=== PATIENT | male | born 1930 | race Caucasian/White ===

== ENCOUNTER 2017-06-01 16:20 | Inpatient (IN) | payer MEDICARE, OTHER ==
[~2017-06-01] VITALS: Ht 182.9 cm; Wt 64.0 kg
[~2017-06-01 16:20] MED LIST: AMLO5TAB4 PO; ASCO500C7 PO; DIGO125T73 GTB; DOCU-144 GTB; FLUO10TA; FURO40TA4 PO; INSU100C3 SQ; LEVE-5 PO; LISI-525 PO; METF500T3 GTB; METO-448 PO; METO10TA92 PO; MVI WITH MINERALS; PANT40TA3 PO; POTA20TA78 PO; SIMV10TA PO; TAMS-14 GTB; VIC PO
[2017-06-01 16:38] VITALS: Ht 182.9 cm; Wt 64.0 kg
[2017-06-01] MEDS ORDERED: ACETAMINOPHEN 650 MG SUPP PR STA (16:38)
[2017-06-01 16:56] LABS: BASOPHILS % 0.2 % (0.0-2.0); HEMATOCRIT 41.1 % (42.0-52.0); HEMOGLOBIN 12.6 g/dl (14.0-18.0); LYMPHOCYTES # 1.2 10^3/ul (0.8-2.9); LYMPHOCYTES % 11.1 % (15.0-51.0); MEAN CORPUSCULAR HEMOGLOBIN 30.7 pg (29.0-33.0); MEAN CORPUSCULAR HGB CONC 30.7 g/dl (32.0-37.0); MEAN PLATELET VOLUME 12.4 fl (7.4-10.4); MONOCYTE # 1.2 10^3/ul (0.3-0.9); MONOCYTES % 10.6 % (0.0-11.0); NEUTROPHIL # 8.7 10^3/ul (1.6-7.5); NEUTROPHILS % 77.7 % (39.0-77.0); PLATELET COUNT 198 10^3/UL (140-415); RED BLOOD COUNT 4.11 10^6/ul (4.70-6.10); WHITE BLOOD COUNT 11.1 10^3/ul (4.8-10.8)
[2017-06-01 17:12] LABS: INR 1.31; PROTIME 16.4 Sec (12.2-14.2); PT RATIO 1.3
[2017-06-01 17:13] LABS: PARTIAL THROMBOPLASTIN TIME 30.4 Sec (25.0-35.0)
[2017-06-01 17:14] LABS: ADD UMIC YES; UR ASCORBIC ACID 40 mg/dL (NEGATIVE); UR BILIRUBIN (Dip) NEGATIVE (NEGATIVE); UR BLOOD (Dip) NEGATIVE (NEGATIVE); UR CLARITY SLIGHTLY CLOUDY (CLEAR); UR COLOR AMBER (YELLOW); UR GLUCOSE (Dip) NEGATIVE (NEGATIVE); UR KETONES (Dip) NEGATIVE (NEGATIVE); UR LEUKOCYTE ESTERASE (Dip) NEGATIVE Leu/ul (NEGATIVE); UR MUCUS FEW /HPF (NONE SEEN); UR NITRITE (Dip) NEGATIVE (NEGATIVE); UR RBC 1 /HPF (0-5); UR SPECIFIC GRAVITY (Dip) 1.023 (1.003-1.030); UR TOTAL PROTEIN (Dip) 2+ mg/dl (NEGATIVE); UR UROBILINOGEN (Dip) 2+ mg/dL (NEGATIVE)
[2017-06-01 17:38] LABS: ALBUMIN/GLOBULIN RATIO 1.03; BILIRUBIN,INDIRECT 0.8 mg/dl (0-1.1); BILIRUBIN,TOTAL 0.8 mg/dl (0.2-1.3); CALCIUM 8.4 mg/dl (8.4-10.2); CREATININE 0.66 mg/dl (0.61-1.24); POTASSIUM 4.4 mmol/L (3.5-5.1); TOTAL PROTEIN 5.9 g/dl (6.1-8.1)
--- NOTE | 2017-06-01 17:40 | RADRPT ---
PROCEDURE: XR Chest. CLINICAL INDICATION: Shortness of breath. TECHNIQUE: Single frontal view. COMPARISON: 05/15/2009. FINDINGS: There is right basilar atelectasis or pneumonia. The lungs are otherwise clear. The heart is enlarged. There is calcification in the aorta consistent with atherosclerosis. There is no pleural effusion. There is no pneumothorax. IMPRESSION: 1. Right basilar atelectasis or pneumonia. 2. Cardiomegaly and atherosclerosis. RPTAT: QQ .Mynor Monson MD, Date Time Electronically viewed and signed by .Mynor Monson MD, on 06/01/2017 17:40 .R/
[2017-06-01 17:49] LABS: TROPONIN-I 0.067 ng/ml (0.00-0.12)
--- NOTE | 2017-06-01 18:04 | RADRPT ---
PROCEDURE: CT Brain without contrast. CLINICAL INDICATION: Altered mental status. TECHNIQUE: A CT of the brain without contrast was performed utilizing axial sections from the skul l base through the vertex. The patient was scanned without intravenous contrast enhancement. Sagitta l and coronal reformatted images were obtained using the data from the axial images. Total exam DLP is 810.25 mGy-cm. CTDIvol is 45.01 mGy. One or more of the following dose reduction techniques we re used: Automated exposure control, adjustment of the mA and/or kV according to patient size, use o f iterative reconstruction technique. COMPARISON: None available FINDINGS: There is a region of encephalomalacia in the right occipital lobe consistent with an old infarct. Th ere is also a region of encephalomalacia in the left frontal lobe consistent with an old infarct. An old infarct with associated encephalomalacia is present in the left parietal lobe anteriorly. There is no evidence of recent infarct. There is enlargement of the ventricles and subarachnoid spaces consistent with atrophy. There is decreased attenuation of the periventricular white matter consistent with microangiopathic ischemic change. There is no intracranial hemorrhage or space-occupying lesion. There are vascular calcifications consistent with atherosclerosis. There is no skull fracture or lytic lesion. IMPRESSION: 1. Atrophy. 2. Microangiopathic ischemic change. 3. Atherosclerosis. 4. 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 5. No evidence of recent infarct. 6. No intracranial hemorrhage. 7. Otherwise unremarkable noncontrast CT scan of the brain. RPTAT: QQ .Mynor Monson MD, MD Date Time Electronically viewed and signed by .Mynor Monson MD, on 06/01/2017 18:04 .R/
[2017-06-01] MEDS ORDERED: VANCOMYCIN 1 GM (PMX) 250 ML IVPB STA (18:17)
[2017-06-01] MEDS ORDERED: CEFEPIME 2GM/50 ML (PMX) 50 ML IVPB STA (18:17)
[2017-06-01] MEDS ORDERED: SODIUM CHLORIDE 0.9% 1L BAG IV* STA (18:17)
[2017-06-01] MEDS ORDERED: SOD CHLORIDE 0.9% 1,000 ML IV SCH (18:22)
--- NOTE | 2017-06-01 18:28 | ERA ---
ER Documentation Chief Complaint Date/Time DATE: 06/01/17 TIME: 18:25 Chief Complaint pt bib ambulance c/o high grade fever, more altered than normal HPI This is an 86-year-old male who presents to the emergency room after being brought in by ambulance from his nursing facility for evaluation of altered mental status. This patient was found to have a fever at his nursing facility. A detailed history is unobtainable from this patient secondary to his clinical condition and severe dementia. The patient is normally alert oriented to person only and was more altered than normal ROS All systems reviewed and are negative except as per history of present illness. Medications Home Meds Reported Medications Metoprolol Tartrate* (Lopressor*) 25 Mg Tab, 25 MG PO BID 01/16/12 Insulin Aspart (Novolog) 100 U/Ml Cartridge, 0 UNITS SQ 01/15/12 Potassium Chloride (Potassium Chloride) 20 Meq Tab.prt.sr, 20 MEQ PO DAILY 01/15/12 Furosemide (Lasix) 40 Mg Tab, 40 MG PO DAILY 01/15/12 Ascorbic Acid* (Vitamin C*) 500 Mg Capsule.sa, 500 MG PO DAILY 01/15/12 Acetaminophen/Hydrocodone (Vicodin) 1 Tab Tab, 1 TAB PO Q6 01/15/12 Tamsulosin Hcl* (Flomax*) 0.4 Mg Cap.sr.24h, 0.4 MG PO DAILY 01/15/12 Metformin* (Glucophage* XR) 500 Mg Tab.sr.24h, 500 MG PO BID 01/15/12 Simvastatin* (Zocor*) 10 Mg Tablet, 10 MG PO QHS 01/15/12 Metoclopramide* (Reglan*) 10 Mg Tablet, 10 MG PO Q6H 01/15/12 Lisinopril* (Zestril*) 20 Mg Tablet, 20 MG PO DAILY 01/15/12 Levetiracetam* (Keppra*) 500 Mg Tablet, 500 MG PO BID 01/15/12 Docusate Sodium* (Colace*) 100 Mg Capsule, 100 MG PO BID 01/15/12 Amlodipine Besylate* (Norvasc*) 5 Mg Tablet, 5 MG PO DAILY 01/15/12 Pantoprazole* (Protonix*) 40 Mg Tablet.dr, 40 MG PO DAILY 01/15/12 Digoxin (Digoxin) 125 Mcg Tablet, 125 MCG PO DAILY 01/15/12 Fluoxetine Hcl* (Prozac*) 10 Mg Tablet, DAILY 12/30/11 [Mvi With Minerals] No Conflict Check, QID 12/30/11 Allergies Allergies: Coded Allergies: No Known Allergy (Verified , NO DATA, 01/16/12) PMhx/Soc History of Surgery: Yes (Lap hernia repair sep 2011, IVC filter) Anesthesia Reaction: No Hx Neurological Disorder: Yes (Poss stroke) Hx Respiratory Disorders: No Hx Cardiac Disorders: Yes (Chronic A fib) Hx Psychiatric Problems: Yes (Depression) Hx Miscellaneous Medical Probl: No Hx Alcohol Use: No Hx Substance Use: No Hx Tobacco Use: No Smoking Status: Unknown if ever smoked Physical Exam Vitals Vital Signs Date Time Temp Pulse Resp B/P Pulse Ox O2 Delivery O2 Flow Rate FiO2 06/01/17 18:14 88 24 103/50 99 Nasal Cannula 3.0 06/01/17 17:04 Nasal Cannula 4 06/01/17 16:38 103.0 85 27 98/47 98 Physical Exam INITIAL VITAL SIGNS: Reviewed by me GENERAL: The patient is ill-appearing elderly gentleman, warm to touch HEENT: Mucous membranes, pupils equal, round, and reactive to light. EOMI. There is no scleral icterus. NECK: C-spine is soft and supple, there is no meningismus. There is no cervical lymphadenopathy. LUNGS: Breath sounds bilaterally with rhonchi auscultated HEART: Regular rate and rhythm, no murmurs, clicks, rubs or gallops. ABDOMEN: Soft, non-tender, non-distended. There are bowel sounds in all four quadrants. No rebound or guarding. EXTREMITIES: There is no peripheral cyanosis or edema. No focal swelling or erythema. NEUROLOGICAL: The patient moves all four extremities with 5/5 strength. SKIN: There is no apparent rash or petechiae. HEME/LYMPHATIC: There is no evidence of excessive bruising or lymphedema. PSYCHIATRIC: The patient does not appear anxious or depressed. Result Diagram: 06/01/17 1645 06/01/17 1645 Results 24 hrs Laboratory Tests Test 06/01/17 16:45 06/01/17 16:57 White Blood Count 11.110^3/ul Red Blood Count 4.1110^6/ul Hemoglobin 12.6g/dl Hematocrit 41.1% Mean Corpuscular Volume 100.0fl Mean Corpuscular Hemoglobin 30.7pg Mean Corpuscular Hemoglobin Concent 30.7g/dl Red Cell Distribution Width 16.0% Platelet Count 50221^3/UL Mean Platelet Volume 12.4fl Neutrophils % 77.7% Lymphocytes % 11.1% Monocytes % 10.6% Eosinophils % 0.0% Basophils % 0.2% Nucleated Red Blood Cells % 0.0/100WBC Neutrophils # 8.710^3/ul Lymphocytes # 1.210^3/ul Monocytes # 1.210^3/ul Eosinophils # 0.010^3/ul Basophils # 0.010^3/ul Nucleated Red Blood Cells # 0.010^3/ul Prothrombin Time 16.4Sec Prothrombin Time Ratio 1.3 INR International Normalized Ratio 1.31 Activated Partial Thromboplast Time 30.4Sec Sodium Level 152mmol/L Potassium Level 4.4mmol/L Chloride Level 108mmol/L Carbon Dioxide Level 43mmol/L Anion Gap 5 Blood Urea Nitrogen 47mg/dl Creatinine 0.66mg/dl Glucose Level 162mg/dl Lactic Acid Level 2.1mmol/L Calcium Level 8.4mg/dl Total Bilirubin 0.8mg/dl Direct Bilirubin 0.00mg/dl Indirect Bilirubin 0.8mg/dl Aspartate Amino Transf (AST/SGOT) 297IU/L Alanine Aminotransferase (ALT/SGPT) 190IU/L Alkaline Phosphatase 44IU/L Troponin I 0.067ng/ml Total Protein 5.9g/dl Albumin 3.0g/dl Globulin 2.90g/dl Albumin/Globulin Ratio 1.03 Urine Color ADRIANA Urine Clarity SLIGHTLY CLOUDY Urine pH 5.0 Urine Specific Jackson 1.023 Urine Ketones NEGATIVEmg/dL Urine Nitrite NEGATIVEmg/dL Urine Bilirubin NEGATIVEmg/dL Urine Urobilinogen 2+mg/dL Urine Leukocyte Esterase NEGATIVELeu/ul Urine Microscopic RBC 1/HPF Urine Microscopic WBC 2/HPF Urine Mucus FEW/HPF Urine Hemoglobin NEGATIVEmg/dL Urine Glucose NEGATIVEmg/dL Urine Total Protein 2+mg/dl Current Medications Medications (Trade) Dose Ordered Sig/Jesi Route PRN Reason Start Time Stop Time Status Last Admin Dose Admin Acetaminophen (Tylenol Supp) 650 mg ONCE STAT CA 06/01/17 16:38 06/01/17 16:39 DC 06/01/17 17:04 Sodium Chloride 2330 ml 2,330 ml BOLUS OVER 2 HOURS STAT IV* 06/01/17 18:17 06/01/17 18:20 DC 06/01/17 18:20 Vancomycin HCl 250 ml @ 125 mls/hr ONCE STAT IVPB 06/01/17 18:17 06/01/17 20:16 Cefepime HCl 50 ml @ 100 mls/hr ONCE STAT IVPB 06/01/17 18:17 06/01/17 18:46 06/01/17 18:24 Sodium Chloride (NS) 1,000 ml @ 80 mls/hr [id number] IV 06/01/17 18:22 06/02/17 06:51 Ondansetron HCl (Zofran Inj) 4 mg BRIDGE ORDER PRN IV NAUSEA AND/OR VOMITING 06/01/17 18:30 06/02/17 18:29 Acetaminophen (Tylenol Tab) 650 mg ER BRIDGE PRN PO MILD PAIN/FEVER 06/01/17 18:30 06/02/17 18:29 Procedures/MDM EKG: Rate/Rhythm: [Normal Sinus Rhythm] QRS, ST, T-waves: [No changes consistent w/ acute ischemia] Impression: [No evidence of ischemia or arrhythmia] Chest X-ray 1V Interpreted by me: Soft Tissue: No acute abnormalities Bones: No acute abnormalities Mediastinum/Cardiac Silhouette/Lungs: Right lobe pneumonia This is an 86-year-old male presents to the emergency room for evaluation of altered mental status and fever. This patient was found to be febrile in the emergency room. He did have septic workup which it was revealed a right lobe pneumonia. He was febrile and does meet sepsis criteria. The patient was given 30 cc/kg of IV normal saline. He was started on vancomycin and cefepime after blood and urine cultures were obtained and will be placed in for admission at this time [facility] as he is hemodynamically stable. His mean arterial pressures given 65 with no need for vasopressors at this time. Critical Care: Excluding all billable procedures Time: 38 minutes Treatments/Evaluations: Close monitoring and treatment of unstable vital signs, cardiorespiratory, and neurologic status, while maintaining tight balance of fluid, respiratory, and cardiac interventions. Departure Diagnosis: Primary Impression: Sepsis Additional Impression: Right lower lobe pneumonia Condition: Stable ANA MARION DO Jun 01, 2017 18:27
[2017-06-01] MEDS ORDERED: ONDANSETRON 4 MG INJ IV PRN ×2 (18:30→20:00)
[2017-06-01] MEDS ORDERED: ACETAMINOPHEN 325 MG TAB PO PRN (18:30)
[2017-06-01 19:09] VITALS: TEMP 98.9
[2017-06-01] MEDS ORDERED: NACL 0.9% 3 ML SYG IV SCH (20:00)
[2017-06-01] MEDS ORDERED: morphine 2 MG INJ IV PRN (20:00)
[2017-06-01] MEDS: SOD CHLORIDE 0.9% 1,000 ML IV SCH (21:35)
[2017-06-01] MEDS: FAMOTIDINE 20 MG INJ IV SCH (21:35)
[2017-06-01] MEDS ORDERED: PENDING SANTYL ORDER FOR WOUND CARE XX PRN (23:00)
[2017-06-02] VITALS (8 sets, daily range): BP systolic 104–139; BP diastolic 50–66; PULSE 81–94; RESP 18–20
[2017-06-02] MEDS ORDERED: INSULIN ASPART [NOVOLOG] 3 ML PEN SC SCH
[2017-06-02] MEDS ORDERED: GLUCAGON 1 MG INJ IM PRN (00:30)
[2017-06-02] MEDS ORDERED: GLUCOSE GEL 15 GRAM TUBE BUCCAL PRN (00:30)
[2017-06-02] MEDS ORDERED: GLUCOSE GEL 15 GRAM TUBE PO PRN ×2 (00:30)
[2017-06-02] MEDS ORDERED: DEXTROSE 50% 50 ML SYRINGE IV PRN ×2 (00:30)
[2017-06-02] MEDS ORDERED: LOSA50TA6 GTB (02:36)
[2017-06-02] MEDS ORDERED: MAGN400T28 GTB (02:36)
[2017-06-02] MEDS ORDERED: CARV6.25 GTB (02:36)
[2017-06-02] MEDS ORDERED: PANT40TA4 GTB (02:36)
[2017-06-02] MEDS ORDERED: ASPI-664 GTB (02:36)
[2017-06-02] MEDS ORDERED: ATOR10TA65 GTB (02:36)
[2017-06-02] MEDS ORDERED: LORA1TAB GTB (02:36)
[2017-06-02] MEDS ORDERED: ACET-514 GTB (02:36)
[2017-06-02] MEDS: SOD CHLORIDE 0.9% 1,000 ML IV SCH ×2 (05:35→10:20)
[2017-06-02 06:25] LABS: BASOPHILS % 0.2 % (0.0-2.0); HEMATOCRIT 39.6 % (42.0-52.0); HEMOGLOBIN 11.6 g/dl (14.0-18.0); LYMPHOCYTES # 1.5 10^3/ul (0.8-2.9); LYMPHOCYTES % 15.8 % (15.0-51.0); MEAN CORPUSCULAR HEMOGLOBIN 29.6 pg (29.0-33.0); MEAN CORPUSCULAR HGB CONC 29.3 g/dl (32.0-37.0); MEAN PLATELET VOLUME 12.5 fl (7.4-10.4); MONOCYTE # 1.1 10^3/ul (0.3-0.9); MONOCYTES % 11.9 % (0.0-11.0); NEUTROPHIL # 6.5 10^3/ul (1.6-7.5); NEUTROPHILS % 71.3 % (39.0-77.0); PLATELET COUNT 178 10^3/UL (140-415); RED BLOOD COUNT 3.92 10^6/ul (4.70-6.10); RED CELL DISTRIBUTION WIDTH 16.1 % (11.5-14.5); WHITE BLOOD COUNT 9.2 10^3/ul (4.8-10.8)
[2017-06-02] MEDS ORDERED: COLLAGENASE 30 GM TUBE TOP PRN (06:30)
[2017-06-02] MEDS: INSULIN ASPART [NOVOLOG] 3 ML PEN SC SCH ×3 (06:36→17:41)
[2017-06-02 07:19] LABS: ALBUMIN 2.6 g/dl (3.3-4.9); ALBUMIN/GLOBULIN RATIO 0.81; BILIRUBIN,INDIRECT 0.8 mg/dl (0-1.1); BILIRUBIN,TOTAL 0.8 mg/dl (0.2-1.3); CALCIUM 8.3 mg/dl (8.4-10.2); CREATININE 0.58 mg/dl (0.61-1.24); POTASSIUM 4.1 mmol/L (3.5-5.1); TOTAL PROTEIN 5.8 g/dl (6.1-8.1)
[2017-06-02] MEDS ORDERED: CEFEPIME 1GM/50 ML (PMX) 50 ML IVPB SCH (09:00)
[2017-06-02] MEDS: COLLAGENASE 30 GM TUBE TOP SCH (09:55)
[2017-06-02] MEDS: FAMOTIDINE 20 MG INJ IV SCH ×2 (09:58→21:29)
[2017-06-02] MEDS: ENOXAPARIN 30 MG/0.3 ML SYG SC SCH (10:00)
[2017-06-02] MEDS ORDERED: VANCOMYCIN IV PER PHARMACY XX SCH (16:00)
[2017-06-02] MEDS ORDERED: LEVALBUTEROL (NEB) 0.63 MG/3 ML AMP HHN PRN (16:00)
--- NOTE | 2017-06-02 16:50 | HP ---
DATE OF ADMISSION: 06/01/2017 CHIEF COMPLAINT: Fever, altered mental status. HISTORY OF PRESENT ILLNESS: The patient is an 86-year-old, white male, who is a resident of snf facility. Patient with history of stroke, atherosclerosis, chronic atrial fibrillation, depression, history of IVC filter, diabetes, and hypertension. Patient is noted to have more than usual altered mental status and also had fevers and was sent by ambulance from [facility] to emergency room of [facility]. Patient cannot provide any medical history due to altered mental status. Most of the history was obtained from medical records and talking to nursing staff. Patient underwent chest x-ray in the emergency room and was diagnosed with right lower lobe pneumonia. Patient also noted to have leukocytosis and elevated lactate on admission. Patient was given IV fluids and started on broad-spectrum antibiotics and admitted for further evaluation and management to telemetry floor. PAST MEDICAL HISTORY: Per HPI. History of pulmonary emboli, diabetes, history of gastrointestinal bleed in 2009, BPH, dyslipidemia, systolic dysfunction heart failure. PAST SURGICAL HISTORY: Status post laparoscopic hernia repair in 2011, status post IVC filter placement, status post cataract surgery bilaterally. FAMILY HISTORY: Noncontributory. SOCIAL HISTORY: Patient is a resident of a snf facility. Patient has a prior history of cigarette smoking, quit in 1998. Used to smoke a couple of cigarettes per day. No history of alcohol or illicit drug use. Patient currently is a [facility] resident. ALLERGIES: NO KNOWN ALLERGIES. MEDICATIONS ON ADMISSION: 1. Lopressor. 2. NovoLog. 3. Potassium chloride. 4. Lasix. 5. Vitamin C. 6. Vicodin. 7. Flomax. 8. Metformin. 9. Simvastatin. 10. Reglan. 11. Lisinopril. 12. Keppra. 13. Colace. 14. Norvasc. 15. Protonix. 16. Digoxin. 17. Prozac. 18. Multivitamins. REVIEW OF SYSTEMS: A 12-point review of system is negative, unless mentioned. PHYSICAL EXAMINATION: GENERAL: Well-developed cachectic male, currently is obtunded. VITAL SIGNS: Temperature is 98.9, pulse is 93, blood pressure 129/59, respiratory rate 18, oxygen saturation 96 percent on 2 L nasal cannula. HEENT: Head is normocephalic, atraumatic. Pale conjunctiva. Oral mucosa is pink, moist. NECK: Supple. LUNGS: Lung sounds diminished bilaterally. CARDIAC: Irregular irregular rate. ABDOMEN: Flat, nondistended, nontender. SKIN: No apparent rash noted. NEUROLOGICAL: Patient is obtunded. LABORATORY DATA: On admission, CBC: White blood cells 9.2, hemoglobin 11.6, hematocrit 39.6, platelets 178. Chemistry: Sodium is 151, potassium 4.1, chloride 111, carbon dioxide 29, anion gap 5, BUN is 43, creatinine 0.58. Glucose 133. AST 236, ALT 178, alkaline phosphate is 40. ASSESSMENT AND PLAN: 1. Right lower lobe pneumonia, sn[facility] facility- acquired pneumonia. We will continue vancomycin and cefepime. I asked Dr. Liu to see patient in Infectious Disease consultation. Monitor chest x-ray. 2. Sepsis secondary to pneumonia. Will obtain blood cultures. 3. Altered mental status. Patient underwent CT brain without contrast, with no evidence of recent infarct. Patient with multiple old infarcts in the right occipital lobe, left frontal lobe and left parietal lobe. We will obtain MRI of the brain. Continue Keppra. 4. Hypertension. Patient is currently normotensive. Continue to monitor vital signs on telemetry floor. 5. Continue Lovenox for deep venous thrombosis prophylaxis. 6. Further recommendation based on clinical course. 7. Plan of care discussed with Dr. Chavarria. Dictated By: Kenia Sotelo NP /krystal/sinai /Document#: [id number] DYLON
[2017-06-02] MEDS: ACETAMINOPHEN 325 MG TAB PO PRN (17:54)
[2017-06-02] MEDS: DEXTROSE 5% 1,000 ML IV SCH (17:55)
[2017-06-02] MEDS: VANCOMYCIN 750 MG in SOD CHLORIDE 0.9% 150 ML IVPB SCH (18:19)
[2017-06-02] MEDS: CEFEPIME 1GM/50 ML (PMX) 50 ML IVPB SCH (21:00)
[2017-06-03] VITALS (64 sets, daily range): BP systolic 49–130; BP diastolic 30–64; PULSE 58–106; RESP 12–28
[2017-06-03] MEDS: LEVALBUTEROL (NEB) 0.63 MG/3 ML AMP HHN SCH ×2 (02:41→08:11)
[2017-06-03] MEDS: VANCOMYCIN 750 MG in SOD CHLORIDE 0.9% 150 ML IVPB SCH ×2 (05:37→18:05)
[2017-06-03] MEDS: DEXTROSE 5% 1,000 ML IV SCH ×2 (05:38→14:04)
--- NOTE | 2017-06-03 05:42 | CONS ---
DATE OF ADMISSION: 06/01/2017 DATE OF CONSULTATION: 06/01/2017 REASON FOR CONSULTATION: Antibiotic management. HISTORY OF PRESENT ILLNESS: Livan Sanders is an 86-year-old male, who was admitted with high-grade fever and altered mental status. His past problems include. 1. Senile dementia. 2. Hypertension. 3. Adult-onset diabetes mellitus. 4. Hyperlipidemia. 5. Possible seizure disorders. 6. Status post laparoscopic hernia repair in September 2011. 7. IVC filter. 8. Possible stroke. 9. Chronic atrial fibrillation. 10. Depression. On admission, his temperature was 103 degrees. His white count was 11.1, hemoglobin and hematocrit of 12.6 and 41.1, platelet count 188,000. BUN and creatinine 47/0.66. Random glucose 162. His CO2 was 43 and his sodium was 152. Patient was started on vancomycin and cefepime. Urine cultures so far are negative. Chest x-ray shows right basilar atelectasis or pneumonia, cardiomegaly and atherosclerosis. He was started on as noted vancomycin and cefepime for the possibility of sepsis. PAST MEDICAL HISTORY: Operations as outlined. FAMILY HISTORY: Noncontributory. SOCIAL HISTORY: He does not smoke, drink, or abuse drugs. ALLERGIES: NONE TO PENICILLIN, SULFA, OR FOODS. MEDICATION: Per chart. REVIEW OF SYSTEMS: As per HPI. PHYSICAL EXAMINATION: GENERAL: Patient is a chronically ill-appearing male, who is awake, responsive, confused, in no acute distress. VITAL SIGNS: Stable. He is afebrile. SKIN: Without generalized rash. HEENT: Within normal limits. NECK: Supple. Lymph nodes nonpalpable. CHEST: Decreased breath sounds at the bases. HEART: Without murmur or gallop. ABDOMEN: Soft, nontender, without organo-splenomegaly or masses. EXTREMITIES: Without cyanosis, clubbing, or edema. RECTAL/GENITAL: Deferred. NEUROLOGICAL: No focal neurological abnormality. IMPRESSION AND PLAN: Patient presents now with sepsis with a temperature of 103 degrees. We are going to continue him on this current regimen. I will dictate my findings to the hospitalists. Dictated By: Linden Liu MD JD/krystal/elías /Document#: [id number]
[2017-06-03] MEDS: INSULIN ASPART [NOVOLOG] 3 ML PEN SC SCH ×4 (05:47→18:03)
[2017-06-03] MEDS: FAMOTIDINE 20 MG INJ IV SCH ×2 (08:19→21:06)
[2017-06-03] MEDS: CEFEPIME 1GM/50 ML (PMX) 50 ML IVPB SCH ×2 (08:19→21:06)
[2017-06-03] MEDS: ENOXAPARIN 30 MG/0.3 ML SYG SC SCH (08:20)
[2017-06-03] MEDS: COLLAGENASE 30 GM TUBE TOP SCH (09:00)
[2017-06-03 09:26] LABS: ABNORMAL IP MESSAGE 1; BASOPHILS % 0.2 % (0.0-2.0); HEMATOCRIT 40.8 % (42.0-52.0); HEMOGLOBIN 11.7 g/dl (14.0-18.0); LYMPHOCYTES # 1.5 10^3/ul (0.8-2.9); LYMPHOCYTES % 13.9 % (15.0-51.0); MEAN CORPUSCULAR HEMOGLOBIN 30.2 pg (29.0-33.0); MEAN CORPUSCULAR HGB CONC 28.7 g/dl (32.0-37.0); MEAN CORPUSCULAR VOLUME 105.2 fl (82.0-101.0); MEAN PLATELET VOLUME 12.5 fl (7.4-10.4); MONOCYTE # 1.4 10^3/ul (0.3-0.9); MONOCYTES % 13.1 % (0.0-11.0); NEUTROPHIL # 7.8 10^3/ul (1.6-7.5); NEUTROPHILS % 72.1 % (39.0-77.0); PLATELET COUNT 236 10^3/UL (140-415); POSITIVE DIFF @See below; RED BLOOD COUNT 3.88 10^6/ul (4.70-6.10); RED CELL DISTRIBUTION WIDTH 15.8 % (11.5-14.5); WHITE BLOOD COUNT 10.8 10^3/ul (4.8-10.8)
[2017-06-03 09:51] LABS: CALCIUM 8.4 mg/dl (8.4-10.2); CREATININE 0.54 mg/dl (0.61-1.24); POTASSIUM 4.7 mmol/L (3.5-5.1)
[2017-06-03 10:13] LABS: THYROID STIMULATING HORMONE 3.8 MIU/L (0.465-4.680)
[2017-06-03 10:34] LABS: AADO2 Arterial 463.8 mmHg (7.0-24.0); Allen Test ACCEPTAB; Arterial Base Excess 8.8 mmol/L (-3.0-3); Arterial Fraction of Oxyhgb 97.9 % (93.0-99.0); Arterial HCO3 40.5 mmol/L (22.0-26.0); Arterial MetHb 0 % (0.0-1.5); MODE MASK - NRB
--- NOTE | 2017-06-03 10:57 | EN ---
Date/Time of Note Date/Time of Note DATE: 06/03/17 TIME: 10:55 Event Note Medicine Medicine Event Note Oral intubation. I responded to rapid response on the 5th [facility], patient was completely unresponsive, was having shallow breathing. Stat ABG was done which is showing severe acute hypercapnic respiratory failure. Patient was transferred to ICU immediately. Patient was orally intubated with 7.5 endotracheal tube without difficulty. Vocal cords were visualized and the tube traversed through. No sedation was required as the patient was completely unresponsive. Chest X-ray and ABG have been ordered. Time :10:45 AM. DONIS GARLAND Jun 03, 2017 10:57
[2017-06-03] MEDS ORDERED: NORepinephrine 8MG/250 ML (PMX 250 ML ONE (11:02)
--- NOTE | 2017-06-03 11:07 | CONS ---
Date/Time of Note Date/Time of Note DATE: 06/03/17 TIME: 10:59 Assessment/Plan Assessment/Plan Additional Assessment/Plan Chest x-ray was reviewed from. This month which is showing mild cardiomegaly, with right lower lobe infiltrate. There is unfolding of the aortic arch. Assessment and recommendations; 1. Patient admitted with dehydration as well as hypernatremia. 2. Acute Respiratory failure. 3. Multiple other comorbidities including advanced dementia, chronic atrial fibrillation, CVA, history of DVT and possibly PE, diabetes and hypertension. 4. Severe aspiration pneumonia. Continue current treatment. Will obtain a post intubation ABG and chest x-ray. Add free water via G-tube for correction of intravascular volume depletion and hypernatremia. Address CODE STATUS with the family. Consultation Date/Type/Reason Admit Date/Time Jun 01, 2017 at 20:45 Date of Consultation: Jun 03, 2017 Type of Consultation: Pulmonary/critical care Hx of Present Illness Pulmonary consultation requested for evaluation of respiratory failure. History of presenting illness; It is an 86-year-old white male who was transferred from halfway facility on the first of this month due to increasing altered mental status. Upon evaluation patient was diagnosed with hyponatremia and prerenal azotemia with dehydration. Patient has been adequately fluid resuscitated. However short while ago a rapid response was called in overhead due to patient having shallow respirations and increasing hypoxemia and lethargic. Was immediately attended to at bedside. Patient appeared quite lethargic and was having very shallow respirations. Statin ABG was done which is showing acute severe hypercapnic respiratory failure with respiratory acidosis. Patient was immediately transferred to ICU where he was orally intubated by myself at bedside without difficulty. History has been obtained from medical records. Past medical history; 1. Patient with history of advanced dementia. 2. Chronic dysphagia, status post G-tube placement. 3. Chronic atrial fibrillation. 4. 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 5. History of CVA. 6. Hypertension. 7. Diabetes. 8. History of laparoscopic herniorrhaphy. 9. History of bilateral intraocular lens implant placement. Medications; reviewed. Allergies; none. Social history, family history, occupational histories not available. Review systems; unable to be obtained. General exam; elderly male, appears quite emaciated, unresponsive. Now orally intubated. Social History Smoking Status: Unknown if ever smoked Exam/Review of Systems Vital Signs Vitals Vital Signs Date Time Temp Pulse Resp B/P Pulse Ox O2 Delivery O2 Flow Rate FiO2 06/03/17 08:13 88 20 97 Nasal Cannula 2.0 06/03/17 08:13 99.9 124/59 Intake and Output 06/02/17 06/02/17 06/03/17 15:00 23:00 07:00 Intake Total 1100 ml Output Total 200 ml 550 ml Balance -200 ml 550 ml Exam HEENT exam; supple neck, no JVD. No lymphadenopathy. Midline trachea. No thyromegaly. Oral mucosa is dry. Patient is edentulous. Has bilateral intraocular lens implants. There is a skin graft applied over the right temporal area. There is significant bilateral temporal muscle wasting. No neck masses. No lymphadenopathy. Chest exam; diminished breath sounds bilaterally. S1-S2 audible, irregular rhythm. Abdomen exam; soft, scaphoid. Bowel sounds are absent. G-tube in place. No organomegaly. Extremity exam; no peripheral edema. Pulses 1+ bilaterally. Multiple ecchymosis involving all 4 extremities. RIG HAND exam; patient is completely unresponsive. Results Result Diagram: 06/03/17 0838 06/03/1738 Results 24 hrs Laboratory Tests Test 06/02/17 11:55 06/02/17 17:40 06/03/17 00:12 06/03/17 05:42 Bedside Glucose 152 126 210 178 Test 06/03/17 08:38 06/03/17 10:05 06/03/17 10:10 White Blood Count 10.8 Red Blood Count 3.88 L Hemoglobin 11.7 L Hematocrit 40.8 L Mean Corpuscular Volume 105.2 H Mean Corpuscular Hemoglobin 30.2 Mean Corpuscular Hemoglobin Concent 28.7 L Red Cell Distribution Width 15.8 H Platelet Count 236 # Mean Platelet Volume 12.5 H Neutrophils % 72.1 Lymphocytes % 13.9 L Monocytes % 13.1 H Eosinophils % 0.0 Basophils % 0.2 Nucleated Red Blood Cells % 0.0 Neutrophils # 7.8 H Lymphocytes # 1.5 Monocytes # 1.4 H Eosinophils # 0.0 Basophils # 0.0 Nucleated Red Blood Cells # 0.0 Sodium Level 150 H Potassium Level 4.7 Chloride Level 111 H Carbon Dioxide Level 38 H Anion Gap 6 L Blood Urea Nitrogen 45 H Creatinine 0.54 L Glucose Level 131 Calcium Level 8.4 Thyroid Stimulating Hormone (TSH) 3.800 Bedside Glucose 134 Blood Gas Specimen Source Blood arterial Arterial Blood Date Drawn 06/03/2017 10:18:00 AM Arterial Blood pH (Temp corrected) 7.213 *L Arterial Blood pCO2 (Temp correct) 102.8 *H Arterial Blood pO2 (Temp corrected) 146.4 H Arterial Blood HCO3 40.5 *H Arterial Blood Base Excess 8.8 H Arterial Blood Oxygen Saturation 98.9 Sukumar Test ACCEPTAB Arterial Blood Gas Puncture Site Right Radial Arterial Blood Carboxyhemoglobin 1.0 Arterial Blood Methemoglobin 0 Blood Gas A-a O2 Differential 463.8 H Oxyhemoglobin Percent 97.9 Total Hemoglobin 13.0 Blood Gas Temperature 37.0 Blood Gas Modality MASK - NRB FiO2 100.0 Blood Gas Critical Value Read Back RAFAEL Connolly Blood Gas Notified Whom [place] Blood Gas Notified Time 06/03/2017 10:31:00 AM Medications Medications Current Medications Ondansetron HCl (Zofran Inj) 4 mg Q6H PRN IV NAUSEA AND/OR VOMITING; Start 06/01/17 at 20:00 Acetaminophen (Tylenol Tab) 650 mg Q6H PRN PO PAIN LEVEL 1-3 OR FEVER Last administered on 06/02/17 17:54; Admin Dose 650 MG; Start 06/01/17 at 20:00 Morphine Sulfate (morphine) 2 mg Q4H PRN IV SEVERE PAIN LEVEL 7-10; Start 06/01 at 20:00 Famotidine (Pepcid Iv) 20 mg Q12 IV Last administered on 06/03/17 08:19; Admin Dose 20 MG; Start 06/01/17 at 21:00 Enoxaparin Sodium (Lovenox) 30 mg DAILY SC Last administered on 06/03/17 08:20 ; Admin Dose 30 MG; Start 06/02/17 at 09:00 Miscellaneous Information (Pending Santyl Order For Wound Care) This patient moilna... PRN PRN XX WOUND CARE; Start 06/01/17 at 23:00 Miscellaneous Information 1 ea NOTE XX ; Start 06/02/17 at 00:30 Glucose (Glutose) 15 gm Q15M PRN PO DECREASED GLUCOSE; Start 06/02/17 at 00:30 Glucose (Glutose) 22.5 gm Q15M PRN PO DECREASED GLUCOSE; Start 06/02/17 at 00: 30 Dextrose (D50w Syringe) 25 ml Q15M PRN IV DECREASED GLUCOSE; Start 06/02/17 at 00:30 Dextrose (D50w Syringe) 50 ml Q15M PRN IV DECREASED GLUCOSE; Start 06/02/17 at 00:30 Glucagon (Glucagen) 1 mg Q15M PRN IM DECREASED GLUCOSE; Start 06/02/17 at 00:30 Glucose (Glutose) 15 gm Q15M PRN BUCCAL DECREASED GLUCOSE; Start 06/02/17 at 00 :30 Insulin Aspart (Novolog Insulin Pen) NOVOLOG *MODERATE* ALGORI... Q6 SC Last administered on 06/03/17 05:47; Admin Dose 2 UNIT; Start 06/02/17 at 06:00 Collagenase (Santyl) 1 applic DAILY TOP Last administered on 06/02/17 09:55; Admin Dose 1 APPLIC; Start 06/02/17 at 09:00 Collagenase 1 applic 1 applic PRN PRN TOP PRN; Start 06/02/17 at 06:30 Cefepime HCl 50 ml @ 100 mls/hr Q12 IVPB Last administered on 06/03/17 08:19 ; Admin Dose 100 MLS/HR; Start 06/02/17 at 21:00 Dextrose 1,000 ml @ 75 mls/hr [id number] IV Last administered on 06/03/17 05:38 ; Admin Dose 75 MLS/HR; Start 06/02/17 at 16:00 Vancomycin HCl/ Sodium Chloride (Vancocin/NS) 150 ml @ 75 mls/hr Q12H IVPB Last administered on 06/03/17 05:37; Admin Dose 75 MLS/HR; Start 06/02/17 at 17 :00 DONIS GARLAND Jun 03, 2017 11:06
--- NOTE | 2017-06-03 11:28 | PN ---
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 The patient is hypotensive. Continue IV fluids, start Levophed drip for BP support. PICC line ordered. Problems: Assessment/Plan -Respiratory failure requiring intubation and ventilatory support. Dr. Huston is following in pulmonology consultation. -Septic shock, continue IV fluids, start Levophed drip for hemodynamic support , patient needs central line for IV fluids pressors and antibiotics. No family available. Per nursing staff patient was making decisions for himself at senior living facility. Please insert PICC line urgently. - Right lower lobe pneumonia, senior living facility-acquired pneumonia. Continue vancomycin and cefepime. Dr. Liu is following in Infectious Disease consultation. -Acute metabolic encephalopathy -Rule out acute stroke and patient is with history of stroke with hemiparesis, CT scan negative for acute stroke, MRI ordered yesterday still pending. Continue Keppra. -Diastolic dysfunction congestive heart failure. Dr. Morales is asked to see patient in cardiology consultation -Atrial fibrillation -Dysphagia with PEG -Sacral decubitus ulcer present on admission -Full Code, POLST in the chart indicating patient wants full treatment Further recommendation based on clinical course. Plan of care discussed with Dr. Chavarria. Exam/Review of Systems Vital Signs Vitals Vital Signs Date Time Temp Pulse Resp B/P Pulse Ox O2 Delivery O2 Flow Rate FiO2 06/03/17 11:00 76 06/03/17 10:55 20 99 100 06/03/17 08:13 Nasal Cannula 2.0 06/03/17 08:13 99.9 124/59 Intake and Output 06/02/17 06/02/17 06/03/17 15:00 23:00 07:00 Intake Total 1100 ml Output Total 200 ml 550 ml Balance -200 ml 550 ml Exam Constitutional: non-verbal, other (Orally intubated) Head: normocephalic Neck: supple Respiratory: diminished breath sounds Cardiovascular: irregular rhythm Gastrointestinal: other (G-tube), soft Musculoskeletal: nl extremities to inspection Extremities: other (Pulses) Neurological: other (Obtunded) Results Result Diagram: 06/03/17 0838 06/03/17 0838 Results 24 hrs Laboratory Tests Test 06/02/17 11:55 06/02/17 17:40 06/03/17 00:12 06/03/17 05:42 Bedside Glucose 152 126 210 178 Test 06/03/17 08:38 06/03/17 10:05 06/03/17 10:10 White Blood Count 10.8 Red Blood Count 3.88 L Hemoglobin 11.7 L Hematocrit 40.8 L Mean Corpuscular Volume 105.2 H Mean Corpuscular Hemoglobin 30.2 Mean Corpuscular Hemoglobin Concent 28.7 L Red Cell Distribution Width 15.8 H Platelet Count 236 # Mean Platelet Volume 12.5 H Neutrophils % 72.1 Lymphocytes % 13.9 L Monocytes % 13.1 H Eosinophils % 0.0 Basophils % 0.2 Nucleated Red Blood Cells % 0.0 Neutrophils # 7.8 H Lymphocytes # 1.5 Monocytes # 1.4 H Eosinophils # 0.0 Basophils # 0.0 Nucleated Red Blood Cells # 0.0 Sodium Level 150 H Potassium Level 4.7 Chloride Level 111 H Carbon Dioxide Level 38 H Anion Gap 6 L Blood Urea Nitrogen 45 H Creatinine 0.54 L Glucose Level 131 Calcium Level 8.4 Thyroid Stimulating Hormone (TSH) 3.800 Bedside Glucose 134 Blood Gas Specimen Source Blood arterial Arterial Blood Date Drawn 06/03/2017 10:18:00 AM Arterial Blood pH (Temp corrected) 7.213 *L Arterial Blood pCO2 (Temp correct) 102.8 *H Arterial Blood pO2 (Temp corrected) 146.4 H Arterial Blood HCO3 40.5 *H Arterial Blood Base Excess 8.8 H Arterial Blood Oxygen Saturation 98.9 Sukumar Test ACCEPTAB Arterial Blood Gas Puncture Site Right Radial Arterial Blood Carboxyhemoglobin 1.0 Arterial Blood Methemoglobin 0 Blood Gas A-a O2 Differential 463.8 H Oxyhemoglobin Percent 97.9 Total Hemoglobin 13.0 Blood Gas Temperature 37.0 Blood Gas Modality MASK - NRB FiO2 100.0 Blood Gas Critical Value Read Back RAFAEL Connolly Blood Gas Notified Whom Sterling Blood Gas Notified Time 06/03/2017 10:31:00 AM Medications Medications Current Medications Ondansetron HCl (Zofran Inj) 4 mg Q6H PRN IV NAUSEA AND/OR VOMITING; Start 06/01/17 at 20:00 Acetaminophen (Tylenol Tab) 650 mg Q6H PRN PO PAIN LEVEL 1-3 OR FEVER Last administered on 06/02/17 17:54; Admin Dose 650 MG; Start 06/01/17 at 20:00 Morphine Sulfate (morphine) 2 mg Q4H PRN IV SEVERE PAIN LEVEL 7-10; Start 06/01 at 20:00 Famotidine (Pepcid Iv) 20 mg Q12 IV Last administered on 06/03/17 08:19; Admin Dose 20 MG; Start 06/01/17 at 21:00 Enoxaparin Sodium (Lovenox) 30 mg DAILY SC Last administered on 06/03/17 08:20 ; Admin Dose 30 MG; Start 06/02/17 at 09:00 Miscellaneous Information (Pending Santyl Order For Wound Care) This patient molina... PRN PRN XX WOUND CARE; Start 06/01/17 at 23:00 Miscellaneous Information 1 ea NOTE XX ; Start 06/02/17 at 00:30 Glucose (Glutose) 15 gm Q15M PRN PO DECREASED GLUCOSE; Start 06/02/17 at 00:30 Glucose (Glutose) 22.5 gm Q15M PRN PO DECREASED GLUCOSE; Start 06/02/17 at 00: 30 Dextrose (D50w Syringe) 25 ml Q15M PRN IV DECREASED GLUCOSE; Start 06/02/17 at 00:30 Dextrose (D50w Syringe) 50 ml Q15M PRN IV DECREASED GLUCOSE; Start 06/02/17 at 00:30 Glucagon (Glucagen) 1 mg Q15M PRN IM DECREASED GLUCOSE; Start 06/02/17 at 00:30 Glucose (Glutose) 15 gm Q15M PRN BUCCAL DECREASED GLUCOSE; Start 06/02/17 at 00 :30 Insulin Aspart (Novolog Insulin Pen) NOVOLOG *MODERATE* ALGORI... Q6 SC Last administered on 06/03/17 05:47; Admin Dose 2 UNIT; Start 06/02/17 at 06:00 Collagenase (Santyl) 1 applic DAILY TOP Last administered on 06/02/17 09:55; Admin Dose 1 APPLIC; Start 06/02/17 at 09:00 Collagenase 1 applic 1 applic PRN PRN TOP PRN; Start 06/02/17 at 06:30 Cefepime HCl 50 ml @ 100 mls/hr Q12 IVPB Last administered on 06/03/17 08:19 ; Admin Dose 100 MLS/HR; Start 06/02/17 at 21:00 Dextrose 1,000 ml @ 75 mls/hr [id number] IV Last administered on 06/03/17 05:38 ; Admin Dose 75 MLS/HR; Start 06/02/17 at 16:00 Vancomycin HCl/ Sodium Chloride (Vancocin/NS) 150 ml @ 75 mls/hr Q12H IVPB Last administered on 06/03/17 05:37; Admin Dose 75 MLS/HR; Start 06/02/17 at 17 :00 NABIL LEROY Jun 03, 2017 11:21
[2017-06-03] MEDS ORDERED: NORepinephrine 8MG/250 ML (PMX 250 ML IV SCH (11:30)
[2017-06-03] MEDS ORDERED: MIDAZOLAM (DRIP) 50 mg/50 mL 50 ML IV SCH (11:30)
--- NOTE | 2017-06-03 12:03 | RADRPT ---
PROCEDURE: XR Chest. CLINICAL INDICATION: Check line placement. TECHNIQUE: Single frontal view. COMPARISON: 06/01/2017. FINDINGS: The endotracheal tube has been inserted in satisfactory position with the tip 4 cm above the quique. There is atelectasis or pneumonia at the right lung base, unchanged. The lungs are otherwise clear. The heart is enlarged. There is calcification in the aorta consistent with atherosclerosis. There is no pleural effusion. There is no pneumothorax. IMPRESSION: 1. Endotracheal tube in satisfactory position. 2. No other change from 06/01/2017. RPTAT: QQ .Mynor Monson MD, MD Date Time Electronically viewed and signed by .Mynor Monson MD, on 06/03/2017 12:03 .R/
[2017-06-03] MEDS ORDERED: ACETAMINOPHEN 650MG/20.3ML CUP GTB PRN (12:30)
[2017-06-03] MEDS ORDERED: SOD CHLORIDE 0.9% 500 ML IV ONE (12:30)
--- NOTE | 2017-06-03 12:51 | CONS ---
Date/Time of Note Date/Time of Note DATE: 06/03/17 TIME: 12:46 Assessment/Plan Assessment/Plan Additional Assessment/Plan 1. Resp failure with sepsis syndrome 1. Patient with history of advanced dementia. 2. Chronic dysphagia, status post G-tube placement. 3. Chronic atrial fibrillation. 4. 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 5. History of CVA. 6. Hypertension. 7. Diabetes. -continue pulmonary management -on pressor support wiht levophed -rate contorlled - off AC -noirmal EF in the past, will review recent echo -guraded prognosis - Consultation Date/Type/Reason Admit Date/Time Jun 01, 2017 at 20:45 Hx of Present Illness The patient is an 86-year-old, white male, who is a resident of [facility]. Patient with history of stroke, atherosclerosis, chronic atrial fibrillation, depression, history of IVC filter, diabetes, and hypertension. Patient is noted to have more than usual altered mental status and also had fevers and was sent by ambulance from [facility] to emergency room of [facility]. Patient cannot provide any medical history due to altered mental status. Most of the history was obtained from medical records and talking to nursing staff. Patient underwent chest x-ray in the emergency room and was diagnosed with right lower lobe pneumonia. Patient also noted to have leukocytosis and elevated lactate on admission. Patient was given IV fluids and started on broad-spectrum antibiotics and admitted for further evaluation and management to telemetry floor.c The patient with rate controolled but on pressor support Social History Smoking Status: Unknown if ever smoked Exam/Review of Systems Vital Signs Vitals Vital Signs Date Time Temp Pulse Resp B/P Pulse Ox O2 Delivery O2 Flow Rate FiO2 06/03/17 12:00 78 20 97/48 100 Mechanical Ventilator 06/03/17 11:00 102.8 06/03/17 10:55 100 06/03/17 10:10 15.0 Intake and Output 06/02/17 06/02/17 06/03/17 15:00 23:00 07:00 Intake Total 1100 ml Output Total 200 ml 550 ml Balance -200 ml 550 ml Results Result Diagram: 06/03/17 0838 06/03/17 0838 Results 24 hrs Laboratory Tests Test 06/02/17 17:40 06/03/17 00:12 06/03/17 05:42 06/03/17 08:38 Bedside Glucose 126 210 178 White Blood Count 10.8 Red Blood Count 3.88 L Hemoglobin 11.7 L Hematocrit 40.8 L Mean Corpuscular Volume 105.2 H Mean Corpuscular Hemoglobin 30.2 Mean Corpuscular Hemoglobin Concent 28.7 L Red Cell Distribution Width 15.8 H Platelet Count 236 # Mean Platelet Volume 12.5 H Neutrophils % 72.1 Lymphocytes % 13.9 L Monocytes % 13.1 H Eosinophils % 0.0 Basophils % 0.2 Nucleated Red Blood Cells % 0.0 Neutrophils # 7.8 H Lymphocytes # 1.5 Monocytes # 1.4 H Eosinophils # 0.0 Basophils # 0.0 Nucleated Red Blood Cells # 0.0 Sodium Level 150 H Potassium Level 4.7 Chloride Level 111 H Carbon Dioxide Level 38 H Anion Gap 6 L Blood Urea Nitrogen 45 H Creatinine 0.54 L Glucose Level 131 Calcium Level 8.4 Thyroid Stimulating Hormone (TSH) 3.800 Test 06/03/17 10:05 06/03/17 10:10 Bedside Glucose 134 Blood Gas Specimen Source Blood arterial Arterial Blood Date Drawn 06/03/2017 10:18:00 AM Arterial Blood pH (Temp corrected) 7.213 *L Arterial Blood pCO2 (Temp correct) 102.8 *H Arterial Blood pO2 (Temp corrected) 146.4 H Arterial Blood HCO3 40.5 *H Arterial Blood Base Excess 8.8 H Arterial Blood Oxygen Saturation 98.9 Sukumar Test ACCEPTAB Arterial Blood Gas Puncture Site Right Radial Arterial Blood Carboxyhemoglobin 1.0 Arterial Blood Methemoglobin 0 Blood Gas A-a O2 Differential 463.8 H Oxyhemoglobin Percent 97.9 Total Hemoglobin 13.0 Blood Gas Temperature 37.0 Blood Gas Modality MASK - NRB FiO2 100.0 Blood Gas Critical Value Read Back RAFAEL Connolly Blood Gas Notified Whom [place] Blood Gas Notified Time 06/03/2017 10:31:00 AM Medications Medications Current Medications Ondansetron HCl (Zofran Inj) 4 mg Q6H PRN IV NAUSEA AND/OR VOMITING; Start 06/01/17 at 20:00 Acetaminophen (Tylenol Tab) 650 mg Q6H PRN PO PAIN LEVEL 1-3 OR FEVER Last administered on 06/02/17t 17:54; Admin Dose 650 MG; Start 06/01/17 at 20:00 Morphine Sulfate (morphine) 2 mg Q4H PRN IV SEVERE PAIN LEVEL 7-10; Start 06/01 at 20:00 Famotidine (Pepcid Iv) 20 mg Q12 IV Last administered on 06/03/17 08:19; Admin Dose 20 MG; Start 06/01/17 at 21:00 Enoxaparin Sodium (Lovenox) 30 mg DAILY SC Last administered on 06/03/17 08:20 ; Admin Dose 30 MG; Start 06/02/17 at 09:00 Miscellaneous Information (Pending Santyl Order For Wound Care) This patient molina... PRN PRN XX WOUND CARE; Start 06/01/17 at 23:00 Miscellaneous Information 1 ea NOTE XX ; Start 06/02/17 at 00:30 Glucose (Glutose) 15 gm Q15M PRN PO DECREASED GLUCOSE; Start 06/02/17 at 00:30 Glucose (Glutose) 22.5 gm Q15M PRN PO DECREASED GLUCOSE; Start 06/02/17 at 00: 30 Dextrose (D50w Syringe) 25 ml Q15M PRN IV DECREASED GLUCOSE; Start 06/02/17 at 00:30 Dextrose (D50w Syringe) 50 ml Q15M PRN IV DECREASED GLUCOSE; Start 06/02/17 at 00:30 Glucagon (Glucagen) 1 mg Q15M PRN IM DECREASED GLUCOSE; Start 06/02/17 at 00:30 Glucose (Glutose) 15 gm Q15M PRN BUCCAL DECREASED GLUCOSE; Start 06/02/17 at 00 :30 Insulin Aspart (Novolog Insulin Pen) NOVOLOG *MODERATE* ALGORI... Q6 SC Last administered on 06/03/17 05:47; Admin Dose 2 UNIT; Start 06/02/17 at 06:00 Collagenase (Santyl) 1 applic DAILY TOP Last administered on 06/02/17 09:55; Admin Dose 1 APPLIC; Start 06/02/17 at 09:00 Collagenase 1 applic 1 applic PRN PRN TOP PRN; Start 06/02/17 at 06:30 Cefepime HCl 50 ml @ 100 mls/hr Q12 IVPB Last administered on 06/03/17 08:19 ; Admin Dose 100 MLS/HR; Start 06/02/17 at 21:00 Dextrose 1,000 ml @ 75 mls/hr [id number] IV Last administered on 06/03/17 05:38 ; Admin Dose 75 MLS/HR; Start 06/02/17 at 16:00 Vancomycin HCl 750 mg/Sodium Chloride 150 ml @ 75 mls/hr Q12H IVPB Last administered on 06/03/17 05:37; Admin Dose 75 MLS/HR; Start 06/02/17 at 17:00 Norepinephrine 250 ml @ 1.875 mls/ hr TITRATE IV Last administered on 12:18; Admin Dose 9.375 MLS/HR; Start 06/03/17 at 11:30; Stop 06/03/17 at 16:00 Norepinephrine 16 mg/Dextrose 500 ml @ 1.87 mls/hr TITRATE IV ; Start 06/03/17 at 16:00 Midazolam HCl (Versed) 50 ml @ 1 mls/hr TITRATE IV ; Start 06/03/17 at 11:30 Acetaminophen 650 mg 650 mg Q4H PRN GTB PAIN AND OR ELEVATED TEMP; Start at 12:30 Sodium Chloride (NS) 500 ml @ 500 mls/hr Q1H ONCE IV Last administered on 06/03 12:38; Admin Dose 500 MLS/HR; Start 06/03/17 at 12:30; Stop 06/03/17 at 13 :29 DEBORAH KENNY MD Jun 03, 2017 12:51
[2017-06-03 13:25] LABS: AADO2 Arterial 421.6 mmHg (7.0-24.0); Allen Test ACCEPTAB; Arterial Base Excess 8.3 mmol/L (-3.0-3); Arterial COHb 0.3 % (0.0-3.0); Arterial Fraction of Oxyhgb 97.8 % (93.0-99.0); Arterial HCO3 31.9 mmol/L (22.0-26.0); Arterial MetHb 0.3 % (0.0-1.5); MODE VENT - AC
--- NOTE | 2017-06-03 14:42 | PN ---
DATE: 06/03/2017 SUBJECTIVE DATA: The patient was intubated this morning. He is currently lethargic in ICU. Vital signs: Temperature 99.9, pulse 94, respirations 20, blood pressure 124/59, saturation 97 percent on vent. LABORATORY AND DIAGNOSTIC DATA: WBC today 10.8, H and H 11.7 and 40.8, platelets 236,000, neutrophils 72.1. BUN 45, creatinine 0.54. MICROBIOLOGY: Blood culture on admission grew gram-positive cocci in clusters. DIAGNOSTICS: Chest x-ray on admission revealed right basilar atelectasis or pneumonia. ANTIMICROBIALS: The patient is on vancomycin and cefepime. PHYSICAL EXAMINATION: GENERAL: This is a fragile, chronically ill-appearing, elderly man, who is intubated, sedated, and in no distress. HEENT: Head atraumatic, normocephalic. Sclerae anicteric. Buccal mucosa dry. NECK: Supple. CHEST: Rise symmetrical. Breath sounds diminished at the bases. HEART: S1, S2. ABDOMEN: Soft, bowel sounds present. EXTREMITIES: Without cyanosis. ASSESSMENT: 1. Sepsis. 2. Pneumonia. 3. Acute respiratory failure, status post intubated. 4. Acute encephalopathy. 5. Bacteremia. 6. Diabetes. 7. Dementia. PLAN: The patient remains stable post intubation, currently in ICU. He is covered with appropriate antimicrobials. We are going to repeat blood cultures if it has not been done. Follow on chest x-ray. Follow on 2D echo that was ordered earlier. Continue management as per primary team and consultants. Dictated By: Harsha Wesley NP /krystal/bren /Document#: [id number]
--- NOTE | 2017-06-03 17:43 | RADRPT ---
PROCEDURE: XR Chest. CLINICAL INDICATION: Check PICC line position. TECHNIQUE: Single frontal view. COMPARISON: 06/03/2017. FINDINGS: There is a left arm PICC line with the tip in the lower superior vena cava. The endotracheal tube i s in satisfactory position. There is atelectasis or pneumonia at the right and the lung base, unchan ged. The heart is enlarged. There is calcification in the aorta consistent with atherosclerosis. There are small bilateral pleural effusions para There is no pneumothorax. IMPRESSION: 1. Left arm PICC line tip in satisfactory position. 2. Endotracheal tube in satisfactory position. Number atelectasis at the lung bases and bilateral p leural effusions. RPTAT: QQ .Mynor Monson MD, MD Date Time Electronically viewed and signed by .Mynor Monson MD, on 06/03/2017 17:43 .R/
--- NOTE | 2017-06-03 17:50 | RADRPT ---
PROCEDURE: Ultrasound guidance for placement of needle in left upper extremity vein. CLINICAL INDICATION: Venous access. TECHNIQUE: Limited sonography of the left upper extremity was performed. Ultrasound images were recorded and s tored in the patient's medical record. COMPARISON: None. FINDINGS: The ultrasound images demonstrate a patent left upper extremity vein. The PICC line was inserted by the PICC line nurse. IMPRESSION: 1. Ultrasound guidance for a needle placement in a left upper extremity vein. 2. The left upper extremity vein is patent. RPTAT: QQ .Mynor Monson MD, MD Date Time Electronically viewed and signed by .Mynor Monson MD, MD on 06/03/2017 17:50 .R/
[2017-06-03] MEDS ORDERED: SOD CHLORIDE 0.9% 100 ML ONE (18:07)
[2017-06-03] MEDS ORDERED: LIDOCAINE 1% (MPF) 5 ML VIAL SC ONE (20:00)
[2017-06-03] MEDS: LEVALBUTEROL (HFA) 15 GM INHALER INH SCH (21:55)
[2017-06-04] VITALS (92 sets, daily range): BP systolic 74–132; BP diastolic 40–95; PULSE 56–87; RESP 13–27
[2017-06-04] MEDS: ACETAMINOPHEN 325 MG TAB PO PRN (01:41)
[2017-06-04] MEDS: LEVALBUTEROL (HFA) 15 GM INHALER INH SCH ×4 (01:48→19:52)
[2017-06-04 04:04] LABS: BASOPHILS % 0.1 % (0.0-2.0); HEMATOCRIT 33.8 % (42.0-52.0); LYMPHOCYTES # 1.6 10^3/ul (0.8-2.9); LYMPHOCYTES % 16.8 % (15.0-51.0); MEAN CORPUSCULAR HEMOGLOBIN 29.6 pg (29.0-33.0); MEAN CORPUSCULAR HGB CONC 29.6 g/dl (32.0-37.0); MEAN PLATELET VOLUME 12.7 fl (7.4-10.4); MONOCYTE # 0.8 10^3/ul (0.3-0.9); MONOCYTES % 8.5 % (0.0-11.0); NEUTROPHIL # 6.9 10^3/ul (1.6-7.5); NEUTROPHILS % 73.9 % (39.0-77.0); PLATELET COUNT 195 10^3/UL (140-415); RED BLOOD COUNT 3.38 10^6/ul (4.70-6.10); RED CELL DISTRIBUTION WIDTH 15.1 % (11.5-14.5); WHITE BLOOD COUNT 9.4 10^3/ul (4.8-10.8)
[2017-06-04 04:05] LABS: CREATININE 0.66 mg/dl (0.61-1.24); POTASSIUM 3.7 mmol/L (3.5-5.1)
[2017-06-04] MEDS: DEXTROSE 5% 1,000 ML IV SCH ×2 (05:17→20:29)
[2017-06-04] MEDS: VANCOMYCIN 750 MG in SOD CHLORIDE 0.9% 150 ML IVPB SCH ×2 (05:17→16:14)
[2017-06-04] MEDS: INSULIN ASPART [NOVOLOG] 3 ML PEN SC SCH ×4 (05:22→18:00)
[2017-06-04 05:45] LABS: AADO2 Arterial 160.4 mmHg (7.0-24.0); Arterial Base Excess 9.7 mmol/L (-3.0-3); Arterial COHb 0.3 % (0.0-3.0); Arterial Fraction of Oxyhgb 97.2 % (93.0-99.0); Arterial HCO3 31.4 mmol/L (22.0-26.0); Arterial MetHb 0.2 % (0.0-1.5); Arterial Total Hemglobin 11.8 g/dl (12.0-18.0); MODE VENT - AC
[2017-06-04] MEDS: CEFEPIME 1GM/50 ML (PMX) 50 ML IVPB SCH ×2 (08:52→20:28)
[2017-06-04] MEDS: FAMOTIDINE 20 MG INJ IV SCH ×2 (08:52→20:28)
[2017-06-04] MEDS: ENOXAPARIN 30 MG/0.3 ML SYG SC SCH (08:55)
--- NOTE | 2017-06-04 10:30 | CONS ---
Date/Time of Note Date/Time of Note DATE: 06/04/17 TIME: 10:27 Consult Date/Type/Reason Admit Date/Time Jun 01, 2017 at 20:45 Initial Consult Date 06/03/17 Type of Consultation: Pulmonary/critical care Subjective Increasing respiratory distress overnight. Required intubation and ventilation. Currently on vasopressor support. Objective Vital Signs Date Time Temp Pulse Resp B/P Pulse Ox O2 Delivery O2 Flow Rate FiO2 06/04/17 09:16 72 20 100 40 06/04/17 06:00 100.1 85/43 Mechanical Ventilator 06/03/17 10:10 15.0 Intake and Output 06/03/17 06/03/17 06/04/17 14:59 22:59 06:59 Intake Total 1130 ml 935.62 ml 1219.48 ml Output Total 220 ml 410 ml 440 ml Balance 910 ml 525.62 ml 779.48 ml Exam PHYSICAL EXAMINATION GENERAL: Elderly gentleman, intubated on mechanical ventilation, opens eyes and appears somewhat agitated. Orally intubated. VITAL SIGNS: see below. HEENT: Pupils equal, round, and reactive to light. CARDIAC: S1, S2, 1/6 systolic ejection murmur CHEST: Diminished air entry bilaterally. ABDOMEN: Mildly distended. Bowel sounds present no guarding or rebound EXTREMITIES: No cyanosis, clubbing edema +1 NEUROLOGIC: Generalized weakness Results/Medications Result Diagram: 06/04/17 0335 06/04/17 0335 Results 24 hrs Laboratory Tests Test 06/03/17 11:45 06/03/17 12:22 06/03/17 12:27 06/03/17 17:59 Blood Gas Specimen Source Blood arterial Arterial Blood Date Drawn 06/03/2017 12:00:49 PM Arterial Blood pH (Temp corrected) 7.514 H Arterial Blood pCO2 (Temp correct) 40.5 Arterial Blood pO2 (Temp corrected) 106.3 H Arterial Blood HCO3 31.9 H Arterial Blood Base Excess 8.3 H Arterial Blood Oxygen Saturation 98.4 Sukumar Test ACCEPTAB Arterial Blood Gas Puncture Site Right Radial Arterial Blood Carboxyhemoglobin 0.3 Arterial Blood Methemoglobin 0.3 Blood Gas A-a O2 Differential 421.6 H Oxyhemoglobin Percent 97.8 Total Hemoglobin 12.0 Blood Gas Temperature 37.0 Blood Gas Respiration Rate 20.0 Blood Gas Actual Respiration Rate 20 Blood Gas Modality VENT - AC FiO2 80.0 Blood Gas Tidal Volume 500.0 Blood Gas Low PEEP Setting 5.0 Blood Gas Notified Whom JLD Blood Gas Notified Time 06/03/2017 12:09:36 PM Bedside Glucose 172 151 Lactic Acid Level 2.3 *H Test 06/04/17 00:34 06/04/17 03:35 06/04/17 05:01 06/04/17 05:14 Bedside Glucose 122 141 White Blood Count 9.4 Red Blood Count 3.38 L Hemoglobin 10.0 L Hematocrit 33.8 L Mean Corpuscular Volume 100.0 Mean Corpuscular Hemoglobin 29.6 Mean Corpuscular Hemoglobin Concent 29.6 L Red Cell Distribution Width 15.1 H Platelet Count 195 Mean Platelet Volume 12.7 H Neutrophils % 73.9 Lymphocytes % 16.8 Monocytes % 8.5 Eosinophils % 0.0 Basophils % 0.1 Nucleated Red Blood Cells % 0.0 Neutrophils # 6.9 Lymphocytes # 1.6 Monocytes # 0.8 Eosinophils # 0.0 Basophils # 0.0 Nucleated Red Blood Cells # 0.0 Sodium Level 146 H Potassium Level 3.7 Chloride Level 109 Carbon Dioxide Level 34 H Anion Gap 7 L Blood Urea Nitrogen 51 H Creatinine 0.66 Glucose Level 161 Hemoglobin A1c 5.4 Calcium Level 8.0 L Vancomycin Level Trough 16.0 Blood Gas Specimen Source Blood arterial Arterial Blood Date Drawn 06/04/2017 5:30:54 AM Arterial Blood pH (Temp corrected) 7.602 *H Arterial Blood pCO2 (Temp correct) 32.6 L Arterial Blood pO2 (Temp corrected) 87.3 Arterial Blood HCO3 31.4 H Arterial Blood Base Excess 9.7 H Arterial Blood Oxygen Saturation 97.7 Sukumar Test N/A Arterial Blood Gas Puncture Site Right Brachial Arterial Blood Carboxyhemoglobin 0.3 Arterial Blood Methemoglobin 0.2 Blood Gas A-a O2 Differential 160.4 H Oxyhemoglobin Percent 97.2 Total Hemoglobin 11.8 L Blood Gas Temperature 37.0 Blood Gas Respiration Rate 20.0 Blood Gas Actual Respiration Rate 20 Blood Gas Modality VENT - AC FiO2 40.0 Blood Gas Tidal Volume 500.0 Blood Gas Low PEEP Setting 5.0 Blood Gas Inspiratory Pressure 21.0 Blood Gas Critical Value Read Back HEVER RN Blood Gas Notified Whom VINCENT Blood Gas Notified Time 06/04/2017 5:45:05 AM Test 06/04/17 08:13 Lactic Acid Level 1.6 Medications Current Medications Ondansetron HCl (Zofran Inj) 4 mg Q6H PRN IV NAUSEA AND/OR VOMITING; Start 06/01/17 at 20:00 Acetaminophen (Tylenol Tab) 650 mg Q6H PRN PO PAIN LEVEL 1-3 OR FEVER Last administered on 06/04/17 01:41; Admin Dose 650 MG; Start 06/01/17 at 20:00 Morphine Sulfate (morphine) 2 mg Q4H PRN IV SEVERE PAIN LEVEL 7-10; Start 06/01 at 20:00 Famotidine (Pepcid Iv) 20 mg Q12 IV Last administered on 06/04/17 08:52; Admin Dose 20 MG; Start 06/01/17 at 21:00 Enoxaparin Sodium (Lovenox) 30 mg DAILY SC Last administered on 06/04/17 08:55 ; Admin Dose 30 MG; Start 06/02/17 at 09:00 Miscellaneous Information (Pending Santyl Order For Wound Care) This patient molina... PRN PRN XX WOUND CARE; Start 06/01/17 at 23:00 Miscellaneous Information 1 ea NOTE XX ; Start 06/02/17 at 00:30 Glucose (Glutose) 15 gm Q15M PRN PO DECREASED GLUCOSE; Start 06/02/17 at 00:30 Glucose (Glutose) 22.5 gm Q15M PRN PO DECREASED GLUCOSE; Start 06/02/17 at 00: 30 Dextrose (D50w Syringe) 25 ml Q15M PRN IV DECREASED GLUCOSE; Start 06/02/17 at 00:30 Dextrose (D50w Syringe) 50 ml Q15M PRN IV DECREASED GLUCOSE; Start 06/02/17 at 00:30 Glucagon (Glucagen) 1 mg Q15M PRN IM DECREASED GLUCOSE; Start 06/02/17 at 00:30 Glucose (Glutose) 15 gm Q15M PRN BUCCAL DECREASED GLUCOSE; Start 06/02/17 at 00 :30 Insulin Aspart (Novolog Insulin Pen) NOVOLOG *MODERATE* ALGORI... Q6 SC Last administered on 06/04/17 05:22; Admin Dose 2 UNIT; Start 06/02/17 at 06:00 Collagenase (Santyl) 1 applic DAILY TOP Last administered on 06/02/17 09:55; Admin Dose 1 APPLIC; Start 06/02/17 at 09:00 Collagenase 1 applic 1 applic PRN PRN TOP PRN; Start 06/02/17 at 06:30 Cefepime HCl 50 ml @ 100 mls/hr Q12 IVPB Last administered on 06/04/17 08:52 ; Admin Dose 100 MLS/HR; Start 06/02/17 at 21:00 Dextrose 1,000 ml @ 75 mls/hr [id number] IV Last administered on 06/04/17 05:17 ; Admin Dose 75 MLS/HR; Start 06/02/17 at 16:00 Vancomycin HCl 750 mg/Sodium Chloride 150 ml @ 75 mls/hr Q12H IVPB Last administered on 06/04/17 05:17; Admin Dose 75 MLS/HR; Start 06/02/17 at 17:00 Norepinephrine 16 mg/Dextrose 500 ml @ 1.87 mls/hr TITRATE IV Last administered on 06/03/17 18:51; Admin Dose 18.75 MLS/HR; Start 06/03/17 at 16: 00 Midazolam HCl (Versed) 50 ml @ 1 mls/hr TITRATE IV Last administered on 05:31; Admin Dose 2 MLS/HR; Start 06/03/17 at 11:30 Acetaminophen (Tylenol Liquid) 650 mg Q4H PRN GTB PAIN AND OR ELEVATED TEMP Last administered on 06/03/17 13:19; Admin Dose 650 MG; Start 06/03/17 at 12:30 IV Flush (NS 10 ml) 10 ml PRN PRN IV IV PROTOCOL; Start 06/03/17 at 18:30 Assessment/Plan Chief Complaint/Hosp Course Assessment 1. Hypoxemic respiratory failure 2. Septic shock 3. Mild renal insufficiency 4. History of dementia Plan 1. Continue mechanical ventilation 2. Continue vasopressor support 3. Continue broad-spectrum antibiotic coverage 4. Volume resuscitation 5. DVT and GI prophylaxis 6. Address CODE STATUS with family Critical care time 40 minutes. Problems: MANDI HAHN MD, [facility] Jun 04, 2017 10:30
--- NOTE | 2017-06-04 11:48 | PN ---
Date/Time of Note Date/Time of Note DATE: 06/04/17 TIME: 11:39 Assessment/Plan VTE Prophylaxis VTE Prophylaxis Intervention: LMWH Lines/Catheters IV Catheter Type (from [facility]): Peripheral IV Central line still needed: Yes Urinary Cath still in place: Yes Reason Cath still needed: urinary retention Assessment/Plan Chief Complaint/Hosp Course Patient is on Levophed for blood pressure support, obtunded, on ventilatory support. Assessment/Plan -Respiratory failure requiring intubation and ventilatory support. Dr. Huston is following in pulmonology consultation. -Septic shock, continue IV fluids, pressors, antibiotics. - Right lower lobe pneumonia, residential facility-acquired pneumonia. Continue vancomycin and cefepime. Dr. Liu is following in Infectious Disease consultation. -Acute metabolic encephalopathy -Rule out acute stroke and patient is with history of stroke with hemiparesis, CT scan negative for acute stroke,pending MRI. Continue Keppra. -Diastolic dysfunction congestive heart failure. Dr. Morales is following in cardiology consultation -Atrial fibrillation -Dysphagia with PEG -Sacral decubitus ulcer present on admission - Hx AVC filter Further recommendation based on clinical course. Plan of care discussed with Dr. Chavarria. Problems: Exam/Review of Systems Vital Signs Vitals Vital Signs Date Time Temp Pulse Resp B/P Pulse Ox O2 Delivery O2 Flow Rate FiO2 06/04/17 09:16 72 20 100 40 06/04/17 06:00 100.1 85/43 Mechanical Ventilator 06/03/17 10:10 15.0 Intake and Output 06/03/17 06/03/17 06/04/17 15:00 23:00 07:00 Intake Total 1235 ml 918.74 ml 1296.48 ml Output Total 220 ml 460 ml 390 ml Balance 1015 ml 458.74 ml 906.48 ml Exam Constitutional: non-verbal, other (Orally intubated) Head: normocephalic Neck: supple Respiratory: diminished breath sounds Cardiovascular: irregular rhythm Gastrointestinal: other (G-tube), soft Musculoskeletal: nl extremities to inspection Extremities: other (Pulses) Neurological: other (Obtunded) Results Result Diagram: 06/04/17 0335 06/04/17 0335 Results 24 hrs Laboratory Tests Test 06/03/17 11:45 06/03/17 12:22 06/03/17 12:27 06/03/17 17:59 Blood Gas Specimen Source Blood arterial Arterial Blood Date Drawn 06/03/2017 12:00:49 PM Arterial Blood pH (Temp corrected) 7.514 H Arterial Blood pCO2 (Temp correct) 40.5 Arterial Blood pO2 (Temp corrected) 106.3 H Arterial Blood HCO3 31.9 H Arterial Blood Base Excess 8.3 H Arterial Blood Oxygen Saturation 98.4 Sukumar Test ACCEPTAB Arterial Blood Gas Puncture Site Right Radial Arterial Blood Carboxyhemoglobin 0.3 Arterial Blood Methemoglobin 0.3 Blood Gas A-a O2 Differential 421.6 H Oxyhemoglobin Percent 97.8 Total Hemoglobin 12.0 Blood Gas Temperature 37.0 Blood Gas Respiration Rate 20.0 Blood Gas Actual Respiration Rate 20 Blood Gas Modality VENT - AC FiO2 80.0 Blood Gas Tidal Volume 500.0 Blood Gas Low PEEP Setting 5.0 Blood Gas Notified Whom JLD Blood Gas Notified Time 06/03/2017 12:09:36 PM Bedside Glucose 172 151 Lactic Acid Level 2.3 *H Test 06/04/17 00:34 06/04/17 03:35 06/04/17 05:01 06/04/17 05:14 Bedside Glucose 122 141 White Blood Count 9.4 Red Blood Count 3.38 L Hemoglobin 10.0 L Hematocrit 33.8 L Mean Corpuscular Volume 100.0 Mean Corpuscular Hemoglobin 29.6 Mean Corpuscular Hemoglobin Concent 29.6 L Red Cell Distribution Width 15.1 H Platelet Count 195 Mean Platelet Volume 12.7 H Neutrophils % 73.9 Lymphocytes % 16.8 Monocytes % 8.5 Eosinophils % 0.0 Basophils % 0.1 Nucleated Red Blood Cells % 0.0 Neutrophils # 6.9 Lymphocytes # 1.6 Monocytes # 0.8 Eosinophils # 0.0 Basophils # 0.0 Nucleated Red Blood Cells # 0.0 Sodium Level 146 H Potassium Level 3.7 Chloride Level 109 Carbon Dioxide Level 34 H Anion Gap 7 L Blood Urea Nitrogen 51 H Creatinine 0.66 Glucose Level 161 Hemoglobin A1c 5.4 Calcium Level 8.0 L Vancomycin Level Trough 16.0 Blood Gas Specimen Source Blood arterial Arterial Blood Date Drawn 06/04/2017 5:30:54 AM Arterial Blood pH (Temp corrected) 7.602 *H Arterial Blood pCO2 (Temp correct) 32.6 L Arterial Blood pO2 (Temp corrected) 87.3 Arterial Blood HCO3 31.4 H Arterial Blood Base Excess 9.7 H Arterial Blood Oxygen Saturation 97.7 Sukumar Test N/A Arterial Blood Gas Puncture Site Right Brachial Arterial Blood Carboxyhemoglobin 0.3 Arterial Blood Methemoglobin 0.2 Blood Gas A-a O2 Differential 160.4 H Oxyhemoglobin Percent 97.2 Total Hemoglobin 11.8 L Blood Gas Temperature 37.0 Blood Gas Respiration Rate 20.0 Blood Gas Actual Respiration Rate 20 Blood Gas Modality VENT - AC FiO2 40.0 Blood Gas Tidal Volume 500.0 Blood Gas Low PEEP Setting 5.0 Blood Gas Inspiratory Pressure 21.0 Blood Gas Critical Value Read Back HEVER RN Blood Gas Notified Whom KM Blood Gas Notified Time 06/04/2017 5:45:05 AM Test 06/04/17 08:13 Lactic Acid Level 1.6 Medications Medications Current Medications Ondansetron HCl (Zofran Inj) 4 mg Q6H PRN IV NAUSEA AND/OR VOMITING; Start 06/01/17 at 20:00 Acetaminophen (Tylenol Tab) 650 mg Q6H PRN PO PAIN LEVEL 1-3 OR FEVER Last administered on 06/04/17 01:41; Admin Dose 650 MG; Start 06/01/17 at 20:00 Morphine Sulfate (morphine) 2 mg Q4H PRN IV SEVERE PAIN LEVEL 7-10; Start 06/01 at 20:00 Famotidine (Pepcid Iv) 20 mg Q12 IV Last administered on 06/04/17 08:52; Admin Dose 20 MG; Start 06/01/17 at 21:00 Enoxaparin Sodium (Lovenox) 30 mg DAILY SC Last administered on 06/04/17 08:55 ; Admin Dose 30 MG; Start 06/02/17 at 09:00 Miscellaneous Information (Pending [facility] Order For Wound Care) This patient molina... PRN PRN XX WOUND CARE; Start 06/01/17 at 23:00 Miscellaneous Information 1 ea NOTE XX ; Start 06/02/17 at 00:30 Glucose (Glutose) 15 gm Q15M PRN PO DECREASED GLUCOSE; Start 06/02/17 at 00:30 Glucose (Glutose) 22.5 gm Q15M PRN PO DECREASED GLUCOSE; Start 06/02/17 at 00: 30 Dextrose (D50w Syringe) 25 ml Q15M PRN IV DECREASED GLUCOSE; Start 06/02/17 at 00:30 Dextrose (D50w Syringe) 50 ml Q15M PRN IV DECREASED GLUCOSE; Start 06/02/17 at 00:30 Glucagon (Glucagen) 1 mg Q15M PRN IM DECREASED GLUCOSE; Start 06/02/17 at 00:30 Glucose (Glutose) 15 gm Q15M PRN BUCCAL DECREASED GLUCOSE; Start 06/02/17 at 00 :30 Insulin Aspart (Novolog Insulin Pen) NOVOLOG *MODERATE* ALGORI... Q6 SC Last administered on 06/04/17 05:22; Admin Dose 2 UNIT; Start 06/02/17 at 06:00 Collagenase (Santyl) 1 applic DAILY TOP Last administered on 06/02/17 09:55; Admin Dose 1 APPLIC; Start 06/02/17 at 09:00 Collagenase 1 applic 1 applic PRN PRN TOP PRN; Start 06/02/17 at 06:30 Cefepime HCl 50 ml @ 100 mls/hr Q12 IVPB Last administered on 06/04/17 08:52 ; Admin Dose 100 MLS/HR; Start 06/02/17 at 21:00 Dextrose 1,000 ml @ 75 mls/hr [id number] IV Last administered on 06/04/17 05:17 ; Admin Dose 75 MLS/HR; Start 06/02/17 at 16:00 Vancomycin HCl 750 mg/Sodium Chloride 150 ml @ 75 mls/hr Q12H IVPB Last administered on 06/04/17 05:17; Admin Dose 75 MLS/HR; Start 06/02/17 at 17:00 Norepinephrine 16 mg/Dextrose 500 ml @ 1.87 mls/hr TITRATE IV Last administered on 06/03/17 18:51; Admin Dose 18.75 MLS/HR; Start 06/03/17 at 16: 00 Midazolam HCl (Versed) 50 ml @ 1 mls/hr TITRATE IV Last administered on 05:31; Admin Dose 2 MLS/HR; Start 06/03/17 at 11:30 Acetaminophen (Tylenol Liquid) 650 mg Q4H PRN GTB PAIN AND OR ELEVATED TEMP Last administered on 06/03/17 13:19; Admin Dose 650 MG; Start 06/03/17 at 12:30 IV Flush (NS 10 ml) 10 ml PRN PRN IV IV PROTOCOL; Start 06/03/17 at 18:30 NABIL LEROY Jun 04, 2017 11:48
--- NOTE | 2017-06-04 12:01 | CONS ---
Date/Time of Note Date/Time of Note DATE: 06/04/17 TIME: 11:58 Assessment/Plan Assessment/Plan Additional Assessment/Plan Septic shock on IV pressor Vent dependent respiratory failure Pneumonia Atrial fibrillation History of CVA -IV pressor requirements decreasing, titrate IV pressor to maintain SBP greater than 90 and or map above 60. Heart rate remains overall stable. Would continue to hold antihypertensive medications. Antibiotics as per infectious disease. Vent management as per our pulmonary colleagues. Will check echocardiogram. -Greater than 31 minutes of critical care time taken in the care of this patient Consultation Date/Type/Reason Admit Date/Time Jun 01, 2017 at 20:45 Initial Consult Date 06/03/17 Type of Consultation: cv 24 HR Interval Summary Free Text/Dictation Patient seen and examined. Discussed with nursing staff, IV pressor requirements are decreasing. Patient with slightly increased urine output. Has been febrile on cooling blanket. Baseline dementia with history of CVA Exam/Review of Systems Vital Signs Vitals Vital Signs Date Time Temp Pulse Resp B/P Pulse Ox O2 Delivery O2 Flow Rate FiO2 06/04/17 09:16 72 20 100 40 06/04/17 06:00 100.1 85/43 Mechanical Ventilator 06/03/17 10:10 15.0 Intake and Output 06/03/17 06/03/17 06/04/17 15:00 23:00 07:00 Intake Total 1235 ml 918.74 ml 1296.48 ml Output Total 220 ml 460 ml 390 ml Balance 1015 ml 458.74 ml 906.48 ml Exam Sedated and intubated, no apparent distress Head: normocephalic ENMT: intubated Respiratory: other (Coarse breath sounds bilaterally with scattered mild rhonchi, no wheezing) Cardiovascular: irregular rhythm, other (S1-S2 heard) Gastrointestinal: bowel sounds, non-tender, soft Extremities: edema Results Result Diagram: 06/04/17 0335 06/04/17 0335 Results 24 hrs Laboratory Tests Test 06/03/17 12:22 06/03/17 12:27 06/03/17 17:59 06/04/17 00:34 Bedside Glucose 172 151 122 Lactic Acid Level 2.3 *H Test 06/04/17 03:35 06/04/17 05:01 06/04/17 05:14 06/04/17 08:13 White Blood Count 9.4 Red Blood Count 3.38 L Hemoglobin 10.0 L Hematocrit 33.8 L Mean Corpuscular Volume 100.0 Mean Corpuscular Hemoglobin 29.6 Mean Corpuscular Hemoglobin Concent 29.6 L Red Cell Distribution Width 15.1 H Platelet Count 195 Mean Platelet Volume 12.7 H Neutrophils % 73.9 Lymphocytes % 16.8 Monocytes % 8.5 Eosinophils % 0.0 Basophils % 0.1 Nucleated Red Blood Cells % 0.0 Neutrophils # 6.9 Lymphocytes # 1.6 Monocytes # 0.8 Eosinophils # 0.0 Basophils # 0.0 Nucleated Red Blood Cells # 0.0 Sodium Level 146 H Potassium Level 3.7 Chloride Level 109 Carbon Dioxide Level 34 H Anion Gap 7 L Blood Urea Nitrogen 51 H Creatinine 0.66 Glucose Level 161 Hemoglobin A1c 5.4 Calcium Level 8.0 L Vancomycin Level Trough 16.0 Blood Gas Specimen Source Blood arterial Arterial Blood Date Drawn 06/04/2017 5:30:54 AM Arterial Blood pH (Temp corrected) 7.602 *H Arterial Blood pCO2 (Temp correct) 32.6 L Arterial Blood pO2 (Temp corrected) 87.3 Arterial Blood HCO3 31.4 H Arterial Blood Base Excess 9.7 H Arterial Blood Oxygen Saturation 97.7 Sukumar Test N/A Arterial Blood Gas Puncture Site Right Brachial Arterial Blood Carboxyhemoglobin 0.3 Arterial Blood Methemoglobin 0.2 Blood Gas A-a O2 Differential 160.4 H Oxyhemoglobin Percent 97.2 Total Hemoglobin 11.8 L Blood Gas Temperature 37.0 Blood Gas Respiration Rate 20.0 Blood Gas Actual Respiration Rate 20 Blood Gas Modality VENT - AC FiO2 40.0 Blood Gas Tidal Volume 500.0 Blood Gas Low PEEP Setting 5.0 Blood Gas Inspiratory Pressure 21.0 Blood Gas Critical Value Read Back HEVER RN Blood Gas Notified Whom KM Blood Gas Notified Time 06/04/2017 5:45:05 AM Bedside Glucose 141 Lactic Acid Level 1.6 Medications Medications Current Medications Ondansetron HCl (Zofran Inj) 4 mg Q6H PRN IV NAUSEA AND/OR VOMITING; Start 06/01/17 at 20:00 Acetaminophen (Tylenol Tab) 650 mg Q6H PRN PO PAIN LEVEL 1-3 OR FEVER Last administered on 06/04/17t 01:41; Admin Dose 650 MG; Start 06/01/17 at 20:00 Morphine Sulfate (morphine) 2 mg Q4H PRN IV SEVERE PAIN LEVEL 7-10; Start 06/01 at 20:00 Famotidine (Pepcid Iv) 20 mg Q12 IV Last administered on 06/04/17 08:52; Admin Dose 20 MG; Start 06/01/17 at 21:00 Enoxaparin Sodium (Lovenox) 30 mg DAILY SC Last administered on 06/04/17 08:55 ; Admin Dose 30 MG; Start 06/02/17 at 09:00 Miscellaneous Information (Pending Santyl Order For Wound Care) This patient molina... PRN PRN XX WOUND CARE; Start 06/01/17 at 23:00 Miscellaneous Information 1 ea NOTE XX ; Start 06/02/17 at 00:30 Glucose (Glutose) 15 gm Q15M PRN PO DECREASED GLUCOSE; Start 06/02/17 at 00:30 Glucose (Glutose) 22.5 gm Q15M PRN PO DECREASED GLUCOSE; Start 06/02/17 at 00: 30 Dextrose (D50w Syringe) 25 ml Q15M PRN IV DECREASED GLUCOSE; Start 06/02/17 at 00:30 Dextrose (D50w Syringe) 50 ml Q15M PRN IV DECREASED GLUCOSE; Start 06/02/17 at 00:30 Glucagon (Glucagen) 1 mg Q15M PRN IM DECREASED GLUCOSE; Start 06/02/17 at 00:30 Glucose (Glutose) 15 gm Q15M PRN BUCCAL DECREASED GLUCOSE; Start 06/02/17 at 00 :30 Insulin Aspart (Novolog Insulin Pen) NOVOLOG *MODERATE* ALGORI... Q6 SC Last administered on 06/04/17 05:22; Admin Dose 2 UNIT; Start 06/02/17 at 06:00 Collagenase (Santyl) 1 applic DAILY TOP Last administered on 06/02/17 09:55; Admin Dose 1 APPLIC; Start 06/02/17 at 09:00 Collagenase 1 applic 1 applic PRN PRN TOP PRN; Start 06/02/17 at 06:30 Cefepime HCl 50 ml @ 100 mls/hr Q12 IVPB Last administered on 06/04/17 08:52 ; Admin Dose 100 MLS/HR; Start 06/02/17 at 21:00 Dextrose 1,000 ml @ 75 mls/hr [id number] IV Last administered on 06/04/17 05:17 ; Admin Dose 75 MLS/HR; Start 06/02/17 at 16:00 Vancomycin HCl 750 mg/Sodium Chloride 150 ml @ 75 mls/hr Q12H IVPB Last administered on 06/04/17 05:17; Admin Dose 75 MLS/HR; Start 06/02/17 at 17:00 Norepinephrine 16 mg/Dextrose 500 ml @ 1.87 mls/hr TITRATE IV Last administered on 06/03/17 18:51; Admin Dose 18.75 MLS/HR; Start 06/03/17 at 16: 00 Midazolam HCl (Versed) 50 ml @ 1 mls/hr TITRATE IV Last administered on 05:31; Admin Dose 2 MLS/HR; Start 06/03/17 at 11:30 Acetaminophen (Tylenol Liquid) 650 mg Q4H PRN GTB PAIN AND OR ELEVATED TEMP Last administered on 06/03/17 13:19; Admin Dose 650 MG; Start 06/03/17 at 12:30 IV Flush (NS 10 ml) 10 ml PRN PRN IV IV PROTOCOL; Start 06/03/17 at 18:30 Ousmane Morales DO Jun 04, 2017 12:01
--- NOTE | 2017-06-04 13:16 | RADRPT ---
PROCEDURE: MR Brain without and with contrast. CLINICAL INDICATION: Neurologic deficit TECHNIQUE: A high resolution MRI of the brain was performed utilizing the following sequences: Sag ittal and axial T1 weighted, axial T2 weighted, axial FLAIR, coronal GRE, and axial diffusion weight ed with ADC mapping. Images were reviewed high-resolution PACS workstation. Additional axial and co ming post contrast images were obtained. 10cc of Magnevist was administered intravenously without r eported complication. COMPARISON: Correlation head CT 06/01/2017 FINDINGS: No acute parenchymal hemorrhage, significant mass effect, or midline shift. No evidence of recent in farct. Old blood products at the left parietal lobe and bilateral occipital lobes. Scattered subco rtical, deep, and periventricular white matter T2-weighted/FLAIR hyperintensities are consistent wit h chronic microvascular ischemic disease. Chronic larger areas of cortical encephalomalacia in the b ilateral frontal and right occipital lobes. Small areas of cortical encephalomalacia in the left tem poral lobe and bilateral parietal lobe. Chronic left cerebellar lacunar infarcts. The ventricles are stable size with moderate to advanced cerebral volume loss. Normal flow voids are visible in the proximal intracranial arteries suggesting their patency. Right sphenoid sinus mucos al thickening with opacified left mastoid. No abnormal parenchymal, dural or leptomeningeal enhancement. IMPRESSION: No evidence of acute intracranial pathology or recent infarct. Chronic larger areas of cortical encephalomalacia in the bilateral frontal and right occipital lobes . Small areas of cortical encephalomalacia in the left temporal lobe and bilateral parietal lobe. F indings are likely due to prior multifocal infarcts. Chronic microvascular disease and moderate to advanced volume loss. RPTAT: AA .Abram Hitchcock MD, MD Date Time Electronically viewed and signed by .Abram Hitchcock MD, MD on 06/04/2017 13:16 .T/
--- NOTE | 2017-06-04 13:24 | RADRPT ---
Echocardiogram Report Patient Name: MIKE NICK Gender: Male Date: 1930 Study Date: 03-Jun-2017 Resource Manager: Carlos Colon RDCS Location: 114 Ref. Physician: NABIL LEROY Quality: Technically Difficult Study Procedures: Transthoracic echocardiogram with complete 2D, M-Mode, and doppler examination. Indications: Evaluate Left Ventricular function. 2D/M Mode Doppler Measurement Value Normal Ranges Measurement Value Normal Ranges LVIDd 2D 5.2 3.5 - 5.6 cm AV Peak Jm 1.2 m/sec LVIDs 2D 3.0 2.1 - 4.1 cm AV Peak PG 6.0 mmHg LVPWd 2D 1.3 0.6 - 1.1 cm LVOT Peak Jm 0.9 m/sec IVSd 2D 1.2 0.6 - 1.1 cm LVOT Peak PG 3.2 mmHg AoR Diam 2D 3.2 2.0 - 3.7 cm TR Peak Jm 2.8 m/sec EDV 2D 127.6 cm3 TR Peak PG 31.5 mmHg ESV 2D 26.4 cm3 RVSP 47.0 mmHg LA Dimen 2D 3.7 2.3 - 4.0 cm Findings Left Ventricle: Overall, normal left ventricular systolic function. Not all segments visualized. Normal left ventricular cavity size. Mild concentric left ventricular hypertrophy. Ejection fraction is visually estimated at 55 %. Abnormal Diastolic Function. Right Ventricle: Moderate enlargement of right ventricle. Moderate right ventricular hypokinesis. Left Atrium: The left atrium is normal in size. Right Atrium: There is severe enlargement of right atrium. Mitral Valve: Mitral valve leaflets appear mildly thickened. Mild mitral annular calcification. Trace mitral regurgitation. Aortic Valve: No significant aortic stenosis or insufficiency. Aortic cusps appear mildly calcified. Tricuspid Valve: Normal appearance of the tricuspid valve. Estimated peak PA systolic pressure 47 mmHg. There is mild to moderate tricuspid regurgitation. Pulmonic Valve: Normal pulmonic valve appearance. There is trace pulmonic regurgitation. Pericardium: Normal pericardium with no significant pericardial effusion. Aorta: Normal aortic root. IVC: Dilated IVC without respiratory collapse, however, patient on ventilator. Conclusions 1.Overall, normal left ventricular systolic function. Not all segments visualized. Normal left ventricular cavity size. Mild concentric left ventricular hypertrophy. Ejection fraction is visually estimated at 55 %. Abnormal Diastolic Function. 2.Moderate enlargement of right ventricle. Moderate right ventricular hypokinesis. 3.The left atrium is normal in size. 4.There is severe enlargement of right atrium. 5.Estimated peak PA systolic pressure 47 mmHg. There is mild to moderate tricuspid regurgitation. 6.No significant valvular stenosis or regurgitation seen of remaining visualized valves. 7.Normal pericardium with no significant pericardial effusion. Electronically Signed By: Ousmane Morales 04-Jun-2017 13:23:57 -0700 Patient Name: MIKE NICK Study Date: 03-Jun-2017 [id number]
[2017-06-04] MEDS: COLLAGENASE 30 GM TUBE TOP SCH (14:26)
[2017-06-04] MEDS: FLUCONAZOLE 100 MG/NS (PMX) 50 ML IVPB SCH (14:26)
--- NOTE | 2017-06-04 15:09 | PN ---
DATE: 06/04/2017 SUBJECTIVE: The patient remains unchanged overnight, started on Levophed drip. T-max yesterday was 103. T current 100.1, pulse 64, respirations 19, blood pressure 85/43, saturation 100 on 40 FIO2. WBC 9.4, H and H 10 and 33.8, platelets 195, no shift, no bands. BUN 51, creatinine 0.66. MICROBIOLOGY: Blood culture on admission grew coagulase-negative staph species. Repeat cultures molina ve been negative. Nares swab negative for MRSA. Urine culture growing yeast. DIAGNOSTICS: Chest x-ray from yesterday revealed right lung base pneumonia. INDWELLINGS: Endotracheal tube, NG tube, left upper extremity PICC line, Gonzalez catheter. ANTIMICROBIALS: The patient was started on vancomycin and Cefepime. PHYSICAL EXAMINATION: GENERAL: This is a chronically ill-appearing, elderly man who is intubated and sedated, in no distr ess. HEENT: Head atraumatic, normocephalic. Sclerae anicteric. Buccal mucosa dry. NECK: Supple. CHEST: Rise symmetrical. Breath sounds diminished to bases. HEART: S1, S2. ABDOMEN: Soft. Bowel tones present. EXTREMITIES: With trace edema and bilateral lower extremity mottled. ASSESSMENT: 1. Severe sepsis with shock. 2. Acute respiratory failure. 3. Right lower lobe pneumonia, possibly aspiration. 4. Urinary tract infection. 5. Acute encephalopathy. 6. Diabetes. 7. Coagulase-negative staph bacteremia consistent with contaminant. PLAN: We are going to add Diflucan to the regimen. Continue him on current antimicrobials. Contin ue vent management as per pulmonary. Follow recommendations of consultants. Dictated By: SHEILA LIU HAND PATCHER for SIMRAN SANTACRUZ/KATINA Conf#: [id number] DID#: [id number]
[2017-06-05] VITALS (30 sets, daily range): BP systolic 101–142; BP diastolic 56–82; PULSE 68–93; RESP 14–23
[2017-06-05] MEDS: INSULIN ASPART [NOVOLOG] 3 ML PEN SC SCH ×4 (00:23→18:00)
[2017-06-05] MEDS: LEVALBUTEROL (HFA) 15 GM INHALER INH SCH ×3 (01:01→14:25)
[2017-06-05] MEDS: VANCOMYCIN 750 MG in SOD CHLORIDE 0.9% 150 ML IVPB SCH ×2 (05:59→16:37)
[2017-06-05 06:11] LABS: BASOPHILS % 0.1 % (0.0-2.0); EOSINOPHILS % 0.3 % (0.0-7.0); HEMATOCRIT 31.7 % (42.0-52.0); HEMOGLOBIN 9.9 g/dl (14.0-18.0); MEAN CORPUSCULAR HEMOGLOBIN 30.7 pg (29.0-33.0); MEAN CORPUSCULAR HGB CONC 31.2 g/dl (32.0-37.0); MEAN CORPUSCULAR VOLUME 98.4 fl (82.0-101.0); MEAN PLATELET VOLUME 12.4 fl (7.4-10.4); MONOCYTE # 0.6 10^3/ul (0.3-0.9); MONOCYTES % 7.8 % (0.0-11.0); NEUTROPHIL # 5.7 10^3/ul (1.6-7.5); NEUTROPHILS % 77.3 % (39.0-77.0); PLATELET COUNT 162 10^3/UL (140-415); RED BLOOD COUNT 3.22 10^6/ul (4.70-6.10); RED CELL DISTRIBUTION WIDTH 15.5 % (11.5-14.5); WHITE BLOOD COUNT 7.4 10^3/ul (4.8-10.8)
[2017-06-05 06:56] LABS: CALCIUM 8.3 mg/dl (8.4-10.2); CREATININE 0.67 mg/dl (0.61-1.24); POTASSIUM 3.8 mmol/L (3.5-5.1)
--- NOTE | 2017-06-05 08:05 | PN ---
Date/Time of Note Date/Time of Note DATE: 06/05/17 TIME: 08:04 Assessment/Plan VTE Prophylaxis VTE Prophylaxis Intervention: SCD's Lines/Catheters IV Catheter Type (from Nrs): PICC Line Central line still needed: No Urinary Cath still in place: Yes Reason Cath still needed: urinary retention Assessment/Plan Chief Complaint/Hosp Course The patient is an 86-year-old, white male, who is a resident of nursing home [facility]. Patient with history of stroke, atherosclerosis, chronic atrial fibrillation, depression, history of IVC filter, diabetes, and hypertension. Patient is noted to have more than usual altered mental status and also had fevers and was sent by ambulance from [facility] to emergency room of [facility]. Patient cannot provide any medical history due to altered mental status. Most of the history was obtained from medical records and talking to nursing staff. Patient underwent chest x-ray in the emergency room and was diagnosed with right lower lobe pneumonia. Patient also noted to have leukocytosis and elevated lactate on admission. Patient was given IV fluids and started on broad-spectrum antibiotics and admitted for further evaluation and management to telemetry floor.c The patient with rate controolled but on pressor support Problems: Assessment/Plan Septic shock on IV pressor Vent dependent respiratory failure Pneumonia Atrial fibrillation History of CVA -IV pressor requirements decreasing, titrate IV pressor to maintain SBP greater than 90 and or map above 60. Heart rate remains overall stable. Would continue to hold antihypertensive medications. Antibiotics as per infectious disease. Vent management as per our pulmonary colleagues. Subjective 24 Hr Interval Summary Free Text/Dictation the patient with no change Exam/Review of Systems Vital Signs Vitals Vital Signs Date Time Temp Pulse Resp B/P Pulse Ox O2 Delivery O2 Flow Rate FiO2 06/05/17 05:30 77 18 100 40 06/05/17 05:00 128/65 06/05/17 04:00 98.0 Mechanical Ventilator 06/03/17 10:10 15.0 Intake and Output 06/04/17 06/04/17 06/05/17 15:00 23:00 07:00 Intake Total 1230.71 ml 1409.99 ml 1275 ml Output Total 450 ml 310 ml 250 ml Balance 780.71 ml 1099.99 ml 1025 ml Results Result Diagram: 06/05/1740 06/05/1740 Results 24 hrs Laboratory Tests Test 06/04/17 08:13 06/04/17 13:47 06/04/17 18:45 06/05/17 00:18 Lactic Acid Level 1.6 Bedside Glucose 152 125 157 Test 06/05/17 05:40 06/05/17 05:51 White Blood Count 7.4 # Red Blood Count 3.22 L Hemoglobin 9.9 L Hematocrit 31.7 L Mean Corpuscular Volume 98.4 Mean Corpuscular Hemoglobin 30.7 Mean Corpuscular Hemoglobin Concent 31.2 L Red Cell Distribution Width 15.5 H Platelet Count 162 Mean Platelet Volume 12.4 H Neutrophils % 77.3 H Lymphocytes % 14.0 L Monocytes % 7.8 Eosinophils % 0.3 Basophils % 0.1 Nucleated Red Blood Cells % 0.0 Neutrophils # 5.7 Lymphocytes # 1.0 Monocytes # 0.6 Eosinophils # 0.0 Basophils # 0.0 Nucleated Red Blood Cells # 0.0 Sodium Level 143 Potassium Level 3.8 Chloride Level 105 Carbon Dioxide Level 36 H Anion Gap 6 L Blood Urea Nitrogen 50 H Creatinine 0.67 Glucose Level 131 Calcium Level 8.3 L Bedside Glucose 138 Medications Medications Current Medications Ondansetron HCl (Zofran Inj) 4 mg Q6H PRN IV NAUSEA AND/OR VOMITING; Start 06/01/17 at 20:00 Acetaminophen (Tylenol Tab) 650 mg Q6H PRN PO PAIN LEVEL 1-3 OR FEVER Last administered on 06/04/17 01:41; Admin Dose 650 MG; Start 06/01/17 at 20:00 Morphine Sulfate (morphine) 2 mg Q4H PRN IV SEVERE PAIN LEVEL 7-10; Start 06/01 at 20:00 Famotidine (Pepcid Iv) 20 mg Q12 IV Last administered on 06/04/17 20:28; Admin Dose 20 MG; Start 06/01/17 at 21:00 Enoxaparin Sodium (Lovenox) 30 mg DAILY SC Last administered on 06/04/17 08:55 ; Admin Dose 30 MG; Start 06/02/17 at 09:00 Miscellaneous Information (Pending Santyl Order For Wound Care) This patient molina... PRN PRN XX WOUND CARE; Start 06/01/17 at 23:00 Miscellaneous Information 1 ea NOTE XX ; Start 06/02/17 at 00:30 Glucose (Glutose) 15 gm Q15M PRN PO DECREASED GLUCOSE; Start 06/02/17 at 00:30 Glucose (Glutose) 22.5 gm Q15M PRN PO DECREASED GLUCOSE; Start 06/02/17 at 00: 30 Dextrose (D50w Syringe) 25 ml Q15M PRN IV DECREASED GLUCOSE; Start 06/02/17 at 00:30 Dextrose (D50w Syringe) 50 ml Q15M PRN IV DECREASED GLUCOSE; Start 06/02/17 at 00:30 Glucagon (Glucagen) 1 mg Q15M PRN IM DECREASED GLUCOSE; Start 06/02/17 at 00:30 Glucose (Glutose) 15 gm Q15M PRN BUCCAL DECREASED GLUCOSE; Start 06/02/17 at 00 :30 Insulin Aspart (Novolog Insulin Pen) NOVOLOG *MODERATE* ALGORI... Q6 SC Last administered on 06/05/17 00:23; Admin Dose 2 UNIT; Start 06/02/17 at 06:00 Collagenase (Santyl) 1 applic DAILY TOP Last administered on 06/04/17 14:26; Admin Dose 1 APPLIC; Start 06/02/17 at 09:00 Collagenase 1 applic 1 applic PRN PRN TOP PRN; Start 06/02/17 at 06:30 Cefepime HCl 50 ml @ 100 mls/hr Q12 IVPB Last administered on 06/04/17 20:28 ; Admin Dose 100 MLS/HR; Start 06/02/17 at 21:00 Dextrose 1,000 ml @ 75 mls/hr [id number] IV Last administered on 06/04/17 20:29 ; Admin Dose 75 MLS/HR; Start 06/02/17 at 16:00 Vancomycin HCl 750 mg/Sodium Chloride 150 ml @ 75 mls/hr Q12H IVPB Last administered on 06/05/17 05:59; Admin Dose 75 MLS/HR; Start 06/02/17 at 17:00 Norepinephrine 16 mg/Dextrose 500 ml @ 1.87 mls/hr TITRATE IV Last administered on 06/03/17 18:51; Admin Dose 18.75 MLS/HR; Start 06/03/17 at 16: 00 Midazolam HCl (Versed) 50 ml @ 1 mls/hr TITRATE IV Last administered on 05:31; Admin Dose 2 MLS/HR; Start 06/03/17 at 11:30 Acetaminophen (Tylenol Liquid) 650 mg Q4H PRN GTB PAIN AND OR ELEVATED TEMP Last administered on 06/03/17 13:19; Admin Dose 650 MG; Start 06/03/17 at 12:30 IV Flush 10 ml 10 ml PRN PRN IV IV PROTOCOL; Start 06/03/17 at 18:30 Fluconazole/ Sodium Chloride (Diflucan 100 Mg/ NS (Pmx)) 50 ml @ 50 mls/hr Q24H IVPB Last administered on 06/04/17 14:26; Admin Dose 50 MLS/HR; Start at 13:30 DEBORAH KENNY MD Jun 05, 2017 08:05
[2017-06-05] MEDS: COLLAGENASE 30 GM TUBE TOP SCH (08:51)
[2017-06-05] MEDS: CEFEPIME 1GM/50 ML (PMX) 50 ML IVPB SCH ×2 (08:51→20:38)
[2017-06-05] MEDS: FAMOTIDINE 20 MG INJ IV SCH ×2 (08:51→20:38)
[2017-06-05] MEDS: ENOXAPARIN 30 MG/0.3 ML SYG SC SCH (08:53)
--- NOTE | 2017-06-05 09:19 | RADRPT ---
Vent Rate: 102 bpm RR Interval: 0 msec IN Interval: 0 msec QRS Duration: 84 msec QT Interval: 436 msec QTC Interval: 568 msec P-R-T [place]: 0 - 50 - 14 degrees Atrial fibrillation with rapid ventricular response with premature ventricular or aberrantly conducted complexes ST amp; T wave abnormality, consider anterior ischemia or digitalis effect Abnormal ECG Electronically Signed By: Gelacio Simon [id number]
--- NOTE | 2017-06-05 09:50 | CONS ---
Date/Time of Note Date/Time of Note DATE: 06/05/17 TIME: 09:48 Consult Date/Type/Reason Admit Date/Time Jun 01, 2017 at 20:45 Initial Consult Date 06/03/17 Type of Consultation: Pulmonary Objective Vital Signs Date Time Temp Pulse Resp B/P Pulse Ox O2 Delivery O2 Flow Rate FiO2 06/05/17 08:00 80 06/05/17 08:00 99.8 19 127/70 100 Mechanical Ventilator 06/05/17 05:30 40 06/03/17 10:10 15.0 Intake and Output 06/04/17 06/04/17 06/05/17 15:00 23:00 07:00 Intake Total 1230.71 ml 1409.99 ml 1335 ml Output Total 450 ml 310 ml 310 ml Balance 780.71 ml 1099.99 ml 1025 ml Exam PHYSICAL EXAMINATION GENERAL: Elderly gentleman, intubated on mechanical ventilation, opens eyes and appears somewhat agitated. Orally intubated. VITAL SIGNS: see below. HEENT: Pupils equal, round, and reactive to light. CARDIAC: S1, S2, 1/6 systolic ejection murmur CHEST: Diminished air entry bilaterally. ABDOMEN: Mildly distended. Bowel sounds present no guarding or rebound EXTREMITIES: No cyanosis, clubbing edema +1 NEUROLOGIC: Generalized weakness Results/Medications Result Diagram: 06/05/17 0540 06/05/17 0540 Results 24 hrs Laboratory Tests Test 06/04/17 13:47 06/04/17 18:45 06/05/17 00:18 06/05/17 05:40 Bedside Glucose 152 125 157 White Blood Count 7.4 # Red Blood Count 3.22 L Hemoglobin 9.9 L Hematocrit 31.7 L Mean Corpuscular Volume 98.4 Mean Corpuscular Hemoglobin 30.7 Mean Corpuscular Hemoglobin Concent 31.2 L Red Cell Distribution Width 15.5 H Platelet Count 162 Mean Platelet Volume 12.4 H Neutrophils % 77.3 H Lymphocytes % 14.0 L Monocytes % 7.8 Eosinophils % 0.3 Basophils % 0.1 Nucleated Red Blood Cells % 0.0 Neutrophils # 5.7 Lymphocytes # 1.0 Monocytes # 0.6 Eosinophils # 0.0 Basophils # 0.0 Nucleated Red Blood Cells # 0.0 Sodium Level 143 Potassium Level 3.8 Chloride Level 105 Carbon Dioxide Level 36 H Anion Gap 6 L Blood Urea Nitrogen 50 H Creatinine 0.67 Glucose Level 131 Calcium Level 8.3 L Test 06/05/17 05:51 Bedside Glucose 138 Medications Current Medications Ondansetron HCl (Zofran Inj) 4 mg Q6H PRN IV NAUSEA AND/OR VOMITING; Start 06/01/17 at 20:00 Acetaminophen (Tylenol Tab) 650 mg Q6H PRN PO PAIN LEVEL 1-3 OR FEVER Last administered on 06/04/17 01:41; Admin Dose 650 MG; Start 06/01/17 at 20:00 Morphine Sulfate (morphine) 2 mg Q4H PRN IV SEVERE PAIN LEVEL 7-10; Start 06/01 at 20:00 Famotidine (Pepcid Iv) 20 mg Q12 IV Last administered on 06/05/17 08:51; Admin Dose 20 MG; Start 06/01/17 at 21:00 Enoxaparin Sodium (Lovenox) 30 mg DAILY SC Last administered on 06/05/17 08:53 ; Admin Dose 30 MG; Start 06/02/17 at 09:00 Miscellaneous Information (Pending Santyl Order For Wound Care) This patient molina... PRN PRN XX WOUND CARE; Start 06/01/17 at 23:00 Miscellaneous Information 1 ea NOTE XX ; Start 06/02/17 at 00:30 Glucose (Glutose) 15 gm Q15M PRN PO DECREASED GLUCOSE; Start 06/02/17 at 00:30 Glucose (Glutose) 22.5 gm Q15M PRN PO DECREASED GLUCOSE; Start 06/02/17 at 00: 30 Dextrose (D50w Syringe) 25 ml Q15M PRN IV DECREASED GLUCOSE; Start 06/02/17 at 00:30 Dextrose (D50w Syringe) 50 ml Q15M PRN IV DECREASED GLUCOSE; Start 06/02/17 at 00:30 Glucagon (Glucagen) 1 mg Q15M PRN IM DECREASED GLUCOSE; Start 06/02/17 at 00:30 Glucose (Glutose) 15 gm Q15M PRN BUCCAL DECREASED GLUCOSE; Start 06/02/17 at 00 :30 Insulin Aspart (Novolog Insulin Pen) NOVOLOG *MODERATE* ALGORI... Q6 SC Last administered on 06/05/17 00:23; Admin Dose 2 UNIT; Start 06/02/17 at 06:00 Collagenase (Santyl) 1 applic DAILY TOP Last administered on 06/05/17 08:51; Admin Dose 1 APPLIC; Start 06/02/17 at 09:00 Collagenase 1 applic 1 applic PRN PRN TOP PRN; Start 06/02/17 at 06:30 Cefepime HCl 50 ml @ 100 mls/hr Q12 IVPB Last administered on 06/05/17 08:51 ; Admin Dose 100 MLS/HR; Start 06/02/17 at 21:00 Dextrose 1,000 ml @ 75 mls/hr [id number] IV Last administered on 06/04/17 20:29 ; Admin Dose 75 MLS/HR; Start 06/02/17 at 16:00 Vancomycin HCl 750 mg/Sodium Chloride 150 ml @ 75 mls/hr Q12H IVPB Last administered on 06/05/17 05:59; Admin Dose 75 MLS/HR; Start 06/02/17 at 17:00 Norepinephrine 16 mg/Dextrose 500 ml @ 1.87 mls/hr TITRATE IV Last administered on 06/03/17 18:51; Admin Dose 18.75 MLS/HR; Start 06/03/17 at 16: 00 Midazolam HCl (Versed) 50 ml @ 1 mls/hr TITRATE IV Last administered on 05:31; Admin Dose 2 MLS/HR; Start 06/03/17 at 11:30 Acetaminophen (Tylenol Liquid) 650 mg Q4H PRN GTB PAIN AND OR ELEVATED TEMP Last administered on 06/03/17 13:19; Admin Dose 650 MG; Start 06/03/17 at 12:30 IV Flush 10 ml 10 ml PRN PRN IV IV PROTOCOL; Start 06/03/17 at 18:30 Fluconazole/ Sodium Chloride (Diflucan 100 Mg/ NS (Pmx)) 50 ml @ 50 mls/hr Q24H IVPB Last administered on 06/04/17 14:26; Admin Dose 50 MLS/HR; Start at 13:30 Miscellaneous Information (*Rx Drug Level Order Reminder*) VANCOMYCIN TROUGH ON ... ONCE ONCE XX ; Start 06/06/17 at 04:00; Stop 06/06/17 at 04:01 Assessment/Plan Chief Complaint/Hosp Course Assessment 1. Hypoxemic respiratory failure possible ablation pneumonia versus healthcare associated pneumonia 2. Status post septic shock 3. Mild renal insufficiency 4. History of dementia Plan 1. Continue mechanical ventilation, CPAP trial this morning 2. Vasopressors as needed 3. Continue broad-spectrum antibiotic coverage 4. Volume resuscitation 5. DVT and GI prophylaxis 6. Address CODE STATUS with family Critical care time 40 minutes. Problems: MANDI HAHN MD, [facility] Jun 05, 2017 09:50
[2017-06-05 09:56] LABS: AADO2 Arterial 69.7 mmHg (7.0-24.0); Allen Test ACCEPTAB; Arterial Base Excess 8.4 mmol/L (-3.0-3); Arterial COHb 0.2 % (0.0-3.0); Arterial Fraction of Oxyhgb 97.9 % (93.0-99.0); Arterial HCO3 32.4 mmol/L (22.0-26.0); Arterial MetHb 0.2 % (0.0-1.5); Arterial Total Hemglobin 10.9 g/dl (12.0-18.0); MODE VENT - AC
[2017-06-05] MEDS: DEXTROSE 5% 1,000 ML IV SCH (10:34)
[2017-06-05] MEDS: FLUCONAZOLE 100 MG/NS (PMX) 50 ML IVPB SCH (13:03)
[2017-06-05 13:08] LABS: AADO2 Arterial 78.4 mmHg (7.0-24.0); Allen Test ACCEPTAB; Arterial Base Excess 6.8 mmol/L (-3.0-3); Arterial COHb 0.3 % (0.0-3.0); Arterial Fraction of Oxyhgb 96.5 % (93.0-99.0); Arterial HCO3 30.5 mmol/L (22.0-26.0); Arterial MetHb 0.1 % (0.0-1.5); Arterial Total Hemglobin 11.7 g/dl (12.0-18.0); Blood Gas PS 10; MODE VENT - CPAP
--- NOTE | 2017-06-05 19:18 | PN ---
DATE: 06/05/2017 SUBJECTIVE: No events overnight. The patient is off pressors, awake, comfortable on vent. VITAL SIGNS: T-max 100.1, T-current 99.8, pulse 87, respirations 20, blood pressure 127/70, saturat ion 100 on FIO2 of 40. LABORATORY DATA: WBC 7.4, H and H 9.9 and 31.7, platelets 162, neutrophils 77.3. BUN 50, creatinin e 0.67. MICROBIOLOGY: Endotracheal aspirate grew Corynebacterium group JK. Urine culture growing yeast. N rhea swab came back negative for MRSA. INDWELLINGS: Endotracheal tube, NG tube, Gonzalez catheter, PICC line. ANTIMICROBIALS: The patient remains on 1. Fluconazole. 2. Vancomycin. 3. Cefepime. PHYSICAL EXAMINATION: GENERAL: Fragile, well-developed, elderly man who is in no distress. HEENT: Head atraumatic, normocephalic. Sclerae anicteric. Buccal mucosa dry. NECK: Supple, trachea midline. CHEST: Rise symmetrical. Breath sounds diminished to bases. HEART: S1, S2. ABDOMEN: Soft, bowel sounds present. EXTREMITIES: With dependent trace edema. ASSESSMENT: 1. Resolving sepsis status post shock. 2. Pneumonia. 3. Acute respiratory failure. 4. Fungal urinary tract infection. 5. Diabetes. 6. Acute encephalopathy with MRI of the brain revealed no acute intracranial pathology. PLAN: The patient remains stable off pressors. Continue present care, antibiotics, weaning trials as per pulmonary team. Dictated By: SHEILA LIU [employer]OR[employer] kade SANTACRUZ/KATINA Conf#: [id number] DID#: [id number]
[2017-06-06] VITALS (17 sets, daily range): BP systolic 99–136; BP diastolic 52–73; PULSE 58–87; RESP 13–19
[2017-06-06] MEDS: LEVALBUTEROL (HFA) 15 GM INHALER INH SCH ×5 (02:00→20:00)
[2017-06-06 04:17] LABS: BASOPHILS % 0.1 % (0.0-2.0); EOSINOPHILS % 0.4 % (0.0-7.0); HEMATOCRIT 29.9 % (42.0-52.0); HEMOGLOBIN 9.4 g/dl (14.0-18.0); LYMPHOCYTES # 0.9 10^3/ul (0.8-2.9); LYMPHOCYTES % 12.7 % (15.0-51.0); MEAN CORPUSCULAR HEMOGLOBIN 30.9 pg (29.0-33.0); MEAN CORPUSCULAR HGB CONC 31.4 g/dl (32.0-37.0); MEAN CORPUSCULAR VOLUME 98.4 fl (82.0-101.0); MEAN PLATELET VOLUME 12.4 fl (7.4-10.4); MONOCYTE # 0.6 10^3/ul (0.3-0.9); MONOCYTES % 7.9 % (0.0-11.0); NEUTROPHIL # 5.5 10^3/ul (1.6-7.5); NEUTROPHILS % 78.2 % (39.0-77.0); PLATELET COUNT 169 10^3/UL (140-415); RED BLOOD COUNT 3.04 10^6/ul (4.70-6.10); RED CELL DISTRIBUTION WIDTH 15.4 % (11.5-14.5); WHITE BLOOD COUNT 7.1 10^3/ul (4.8-10.8)
[2017-06-06 04:31] LABS: CREATININE 0.59 mg/dl (0.61-1.24); MAGNESIUM 2.5 mg/dl (1.7-2.5); PHOSPHORUS 2.7 mg/dl (2.5-4.9); POTASSIUM 3.7 mmol/L (3.5-5.1)
[2017-06-06] MEDS: VANCOMYCIN 750 MG in SOD CHLORIDE 0.9% 150 ML IVPB SCH (05:30)
[2017-06-06] MEDS: INSULIN ASPART [NOVOLOG] 3 ML PEN SC SCH ×4 (05:33→17:49)
[2017-06-06 07:59] LABS: AADO2 Arterial 22.8 mmHg (7.0-24.0); Allen Test ACCEPTAB; Arterial Base Excess 9.4 mmol/L (-3.0-3); Arterial COHb 0.3 % (0.0-3.0); Arterial Fraction of Oxyhgb 97.8 % (93.0-99.0); Arterial HCO3 34.7 mmol/L (22.0-26.0); Arterial MetHb 0.2 % (0.0-1.5); Arterial Total Hemglobin 10.6 g/dl (12.0-18.0); MODE NASAL CANNULA
--- NOTE | 2017-06-06 08:23 | PN ---
Date/Time of Note Date/Time of Note DATE: 06/06/17 TIME: 08:22 Assessment/Plan VTE Prophylaxis VTE Prophylaxis Intervention: SCD's Lines/Catheters IV Catheter Type (from Nrs): PICC Line Central line still needed: No Urinary Cath still in place: Yes Reason Cath still needed: urinary retention Assessment/Plan Chief Complaint/Hosp Course Septic shock on IV pressor Vent dependent respiratory failure Pneumonia Atrial fibrillation History of CVA -Off pressors and Heart rate remains overall stable. Would continue to hold antihypertensive medications. Antibiotics as per infectious disease. Vent management as per our pulmonary colleagues. -rate controlled Problems: Subjective 24 Hr Interval Summary Free Text/Dictation the patient off pressors Exam/Review of Systems Vital Signs Vitals Vital Signs Date Time Temp Pulse Resp B/P Pulse Ox O2 Delivery O2 Flow Rate FiO2 06/06/17 07:00 64 13 115/52 100 06/06/17 04:00 98.2 06/06/17 01:10 3.0 06/05/17 20:00 Nasal Cannula 06/05/17 13:05 30 Intake and Output 06/05/17 06/05/17 06/06/17 15:00 23:00 07:00 Intake Total 590 ml 870 ml 970 ml Output Total 390 ml 400 ml 330 ml Balance 200 ml 470 ml 640 ml Results Result Diagram: 06/06/17 0400 06/06/17 0400 Results 24 hrs Laboratory Tests Test 06/05/17 09:10 06/05/17 12:24 06/05/17 13:00 06/05/17 18:00 Blood Gas Specimen Source Blood arterial Blood arterial Arterial Blood Date Drawn 06/05/2017 9:30:00 AM 06/05/2017 1:00:30 PM Arterial Blood pH (Temp corrected) 7.499 H 7.500 H Arterial Blood pCO2 (Temp correct) 42.6 40.0 Arterial Blood pO2 (Temp corrected) 130.3 H 88.5 Arterial Blood HCO3 32.4 H 30.5 H Arterial Blood Base Excess 8.4 H 6.8 H Arterial Blood Oxygen Saturation 98.3 96.9 Sukumar Test ACCEPTAB ACCEPTAB Arterial Blood Gas Puncture Site Right Radial Right Radial Arterial Blood Carboxyhemoglobin 0.2 0.3 Arterial Blood Methemoglobin 0.2 0.1 Blood Gas A-a O2 Differential 69.7 H 78.4 H Oxyhemoglobin Percent 97.9 96.5 Total Hemoglobin 10.9 L 11.7 L Blood Gas Temperature 37.0 37.0 Blood Gas Respiration Rate 14.0 Blood Gas Actual Respiration Rate 19 20 Blood Gas Modality VENT - AC VENT - CPAP FiO2 35.0 30.0 Blood Gas Tidal Volume 450.0 Blood Gas Low PEEP Setting 5.0 5.0 Blood Gas Notified Whom MAGDA MAN Blood Gas Notified Time 06/05/2017 9:56:36 AM 06/05/2017 1:08:10 PM Bedside Glucose 137 122 Blood Gas Pressure Support 10 Test 06/06/17 00:09 06/06/17 04:00 06/06/17 05:32 06/06/17 07:00 Bedside Glucose 138 110 White Blood Count 7.1 Red Blood Count 3.04 L Hemoglobin 9.4 L Hematocrit 29.9 L Mean Corpuscular Volume 98.4 Mean Corpuscular Hemoglobin 30.9 Mean Corpuscular Hemoglobin Concent 31.4 L Red Cell Distribution Width 15.4 H Platelet Count 169 Mean Platelet Volume 12.4 H Neutrophils % 78.2 H Lymphocytes % 12.7 L Monocytes % 7.9 Eosinophils % 0.4 Basophils % 0.1 Nucleated Red Blood Cells % 0.0 Neutrophils # 5.5 Lymphocytes # 0.9 Monocytes # 0.6 Eosinophils # 0.0 Basophils # 0.0 Nucleated Red Blood Cells # 0.0 Sodium Level 146 H Potassium Level 3.7 Chloride Level 108 Carbon Dioxide Level 36 H Anion Gap 6 L Blood Urea Nitrogen 38 #H Creatinine 0.59 L Glucose Level 128 Calcium Level 8.0 L Phosphorus Level 2.7 Magnesium Level 2.5 Vancomycin Level Trough 17.6 Blood Gas Specimen Source Blood arterial Arterial Blood Date Drawn 06/06/2017 7:30:19 AM Arterial Blood pH (Temp corrected) 7.450 Arterial Blood pCO2 (Temp correct) 51.0 H Arterial Blood pO2 (Temp corrected) 131.2 H Arterial Blood HCO3 34.7 H Arterial Blood Base Excess 9.4 H Arterial Blood Oxygen Saturation 98.3 Sukumar Test ACCEPTAB Arterial Blood Gas Puncture Site Right Radial Arterial Blood Carboxyhemoglobin 0.3 Arterial Blood Methemoglobin 0.2 Blood Gas A-a O2 Differential 22.8 Oxyhemoglobin Percent 97.8 Total Hemoglobin 10.6 L Blood Gas Temperature 37.0 Blood Gas Modality NASAL CANNULA FiO2 30.0 Blood Gas Notified Whom MAGDA Blood Gas Notified Time 06/06/2017 7:59:49 AM Medications Medications Current Medications Ondansetron HCl (Zofran Inj) 4 mg Q6H PRN IV NAUSEA AND/OR VOMITING; Start 06/01/17 at 20:00 Acetaminophen (Tylenol Tab) 650 mg Q6H PRN PO PAIN LEVEL 1-3 OR FEVER Last administered on 06/04/17 01:41; Admin Dose 650 MG; Start 06/01/17 at 20:00 Morphine Sulfate (morphine) 2 mg Q4H PRN IV SEVERE PAIN LEVEL 7-10; Start 06/01 at 20:00 Famotidine (Pepcid Iv) 20 mg Q12 IV Last administered on 06/05/17 20:38; Admin Dose 20 MG; Start 06/01/17 at 21:00 Enoxaparin Sodium (Lovenox) 30 mg DAILY SC Last administered on 06/05/17 08:53 ; Admin Dose 30 MG; Start 06/02/17 at 09:00 Miscellaneous Information (Pending Santyl Order For Wound Care) This patient molina... PRN PRN XX WOUND CARE; Start 06/01/17 at 23:00 Miscellaneous Information 1 ea NOTE XX ; Start 06/02/17 at 00:30 Glucose (Glutose) 15 gm Q15M PRN PO DECREASED GLUCOSE; Start 06/02/17 at 00:30 Glucose (Glutose) 22.5 gm Q15M PRN PO DECREASED GLUCOSE; Start 06/02/17 at 00: 30 Dextrose (D50w Syringe) 25 ml Q15M PRN IV DECREASED GLUCOSE; Start 06/02/17 at 00:30 Dextrose (D50w Syringe) 50 ml Q15M PRN IV DECREASED GLUCOSE; Start 06/02/17 at 00:30 Glucagon (Glucagen) 1 mg Q15M PRN IM DECREASED GLUCOSE; Start 06/02/17 at 00:30 Glucose (Glutose) 15 gm Q15M PRN BUCCAL DECREASED GLUCOSE; Start 06/02/17 at 00 :30 Insulin Aspart (Novolog Insulin Pen) NOVOLOG *MODERATE* ALGORI... Q6 SC Last administered on 06/05/17 00:23; Admin Dose 2 UNIT; Start 06/02/17 at 06:00 Collagenase (Santyl) 1 applic DAILY TOP Last administered on 06/05/17 08:51; Admin Dose 1 APPLIC; Start 06/02/17 at 09:00 Collagenase 1 applic 1 applic PRN PRN TOP PRN; Start 06/02/17 at 06:30 Cefepime HCl 50 ml @ 100 mls/hr Q12 IVPB Last administered on 06/05/17 20:38 ; Admin Dose 100 MLS/HR; Start 06/02/17 at 21:00 Vancomycin HCl 750 mg/Sodium Chloride 150 ml @ 75 mls/hr Q12H IVPB Last administered on 06/06/17 05:30; Admin Dose 75 MLS/HR; Start 06/02/17 at 17:00 Norepinephrine/ Dextrose (Levophed/D5W) 500 ml @ 1.87 mls/hr TITRATE IV Last administered on 06/03/17 18:51; Admin Dose 18.75 MLS/HR; Start 06/03/17 at 16: 00 Acetaminophen (Tylenol Liquid) 650 mg Q4H PRN GTB PAIN AND OR ELEVATED TEMP Last administered on 06/03/17 13:19; Admin Dose 650 MG; Start 06/03/17 at 12:30 IV Flush 10 ml 10 ml PRN PRN IV IV PROTOCOL; Start 06/03/17 at 18:30 Fluconazole/ Sodium Chloride (Diflucan 100 Mg/ NS (Pmx)) 50 ml @ 50 mls/hr Q24H IVPB Last administered on 06/05/17 13:03; Admin Dose 50 MLS/HR; Start at 13:30 DEBORAH KENNY MD Jun 06, 2017 08:23
[2017-06-06] MEDS: FAMOTIDINE 20 MG INJ IV SCH ×2 (08:39→20:10)
[2017-06-06] MEDS: CEFEPIME 1GM/50 ML (PMX) 50 ML IVPB SCH ×2 (08:39→20:10)
[2017-06-06] MEDS: ENOXAPARIN 30 MG/0.3 ML SYG SC SCH (08:40)
--- NOTE | 2017-06-06 09:23 | RADRPT ---
PROCEDURE: XR Chest. CLINICAL INDICATION: Shortness of breath. TECHNIQUE: Single frontal view. COMPARISON: 06/03/2017. FINDINGS: The endotracheal tube has been removed. The left arm PICC line remains in satisfactory position. The re is air space disease at the lung bases consistent with atelectasis or pneumonia with right worse. The heart is enlarged. There is calcification in the aorta consistent with atherosclerosis. There are small bilateral pleural effusions. There is no pneumothorax. IMPRESSION: 1. Endotracheal tube removed. 2. No other change from 06/03/2017. RPTAT: QQ .Mynor Monson MD, MD Date Time Electronically viewed and signed by .Mynor Monson MD, on 06/06/2017 09:23 .R/
--- NOTE | 2017-06-06 11:31 | CONS ---
Date/Time of Note Date/Time of Note DATE: 06/06/17 TIME: 11:29 Consult Date/Type/Reason Admit Date/Time Jun 01, 2017 at 20:45 Initial Consult Date 06/03/17 Type of Consultation: Pulmonary Subjective Patient extubated comfortable this morning. Opens eyes but not following commands. Currently no hemodynamic support. Currently no hemodynamic support. Objective Vital Signs Date Time Temp Pulse Resp B/P Pulse Ox O2 Delivery O2 Flow Rate FiO2 06/06/17 11:00 86 15 132/59 96 06/06/17 08:48 3.0 06/06/17 08:00 98.5 06/06/17 08:00 Nasal Cannula 06/05/17 13:05 30 Intake and Output 06/05/17 06/05/17 06/06/17 15:00 23:00 07:00 Intake Total 590 ml 870 ml 1030 ml Output Total 390 ml 400 ml 380 ml Balance 200 ml 470 ml 650 ml Exam PHYSICAL EXAMINATION GENERAL: Elderly gentleman, on nasal cannula O2 VITAL SIGNS: see below. HEENT: Pupils equal, round, and reactive to light. CARDIAC: S1, S2, 1/6 systolic ejection murmur CHEST: Diminished air entry bilaterally. ABDOMEN: Mildly distended. Bowel sounds present no guarding or rebound EXTREMITIES: No cyanosis, clubbing edema +1 NEUROLOGIC: Generalized weakness Results/Medications Result Diagram: 06/06/17 0400 06/06/17 0400 Results 24 hrs Laboratory Tests Test 06/05/17 12:24 06/05/17 13:00 06/05/17 18:00 06/06/17 00:09 Bedside Glucose 137 122 138 Blood Gas Specimen Source Blood arterial Arterial Blood Date Drawn 06/05/2017 1:00:30 PM Arterial Blood pH (Temp corrected) 7.500 H Arterial Blood pCO2 (Temp correct) 40.0 Arterial Blood pO2 (Temp corrected) 88.5 Arterial Blood HCO3 30.5 H Arterial Blood Base Excess 6.8 H Arterial Blood Oxygen Saturation 96.9 Sukumar Test ACCEPTAB Arterial Blood Gas Puncture Site Right Radial Arterial Blood Carboxyhemoglobin 0.3 Arterial Blood Methemoglobin 0.1 Blood Gas A-a O2 Differential 78.4 H Oxyhemoglobin Percent 96.5 Total Hemoglobin 11.7 L Blood Gas Temperature 37.0 Blood Gas Actual Respiration Rate 20 Blood Gas Modality VENT - CPAP FiO2 30.0 Blood Gas Low PEEP Setting 5.0 Blood Gas Pressure Support 10 Blood Gas Notified Whom JLD Blood Gas Notified Time 06/05/2017 1:08:10 PM Test 06/06/17 04:00 06/06/17 05:32 06/06/17 07:00 White Blood Count 7.1 Red Blood Count 3.04 L Hemoglobin 9.4 L Hematocrit 29.9 L Mean Corpuscular Volume 98.4 Mean Corpuscular Hemoglobin 30.9 Mean Corpuscular Hemoglobin Concent 31.4 L Red Cell Distribution Width 15.4 H Platelet Count 169 Mean Platelet Volume 12.4 H Neutrophils % 78.2 H Lymphocytes % 12.7 L Monocytes % 7.9 Eosinophils % 0.4 Basophils % 0.1 Nucleated Red Blood Cells % 0.0 Neutrophils # 5.5 Lymphocytes # 0.9 Monocytes # 0.6 Eosinophils # 0.0 Basophils # 0.0 Nucleated Red Blood Cells # 0.0 Sodium Level 146 H Potassium Level 3.7 Chloride Level 108 Carbon Dioxide Level 36 H Anion Gap 6 L Blood Urea Nitrogen 38 #H Creatinine 0.59 L Glucose Level 128 Calcium Level 8.0 L Phosphorus Level 2.7 Magnesium Level 2.5 Vancomycin Level Trough 17.6 Bedside Glucose 110 Blood Gas Specimen Source Blood arterial Arterial Blood Date Drawn 06/06/2017 7:30:19 AM Arterial Blood pH (Temp corrected) 7.450 Arterial Blood pCO2 (Temp correct) 51.0 H Arterial Blood pO2 (Temp corrected) 131.2 H Arterial Blood HCO3 34.7 H Arterial Blood Base Excess 9.4 H Arterial Blood Oxygen Saturation 98.3 Sukumar Test ACCEPTAB Arterial Blood Gas Puncture Site Right Radial Arterial Blood Carboxyhemoglobin 0.3 Arterial Blood Methemoglobin 0.2 Blood Gas A-a O2 Differential 22.8 Oxyhemoglobin Percent 97.8 Total Hemoglobin 10.6 L Blood Gas Temperature 37.0 Blood Gas Modality NASAL CANNULA FiO2 30.0 Blood Gas Notified Whom JLD Blood Gas Notified Time 06/06/2017 7:59:49 AM Medications Current Medications Ondansetron HCl (Zofran Inj) 4 mg Q6H PRN IV NAUSEA AND/OR VOMITING; Start 06/01/17 at 20:00 Acetaminophen (Tylenol Tab) 650 mg Q6H PRN PO PAIN LEVEL 1-3 OR FEVER Last administered on 06/04/17t 01:41; Admin Dose 650 MG; Start 06/01/17 at 20:00 Morphine Sulfate (morphine) 2 mg Q4H PRN IV SEVERE PAIN LEVEL 7-10; Start 06/01 at 20:00 Famotidine (Pepcid Iv) 20 mg Q12 IV Last administered on 06/06/17 08:39; Admin Dose 20 MG; Start 06/01/17 at 21:00 Enoxaparin Sodium (Lovenox) 30 mg DAILY SC Last administered on 06/06/17 08:40 ; Admin Dose 30 MG; Start 06/02/17 at 09:00 Miscellaneous Information (Pending Santyl Order For Wound Care) This patient molina... PRN PRN XX WOUND CARE; Start 06/01/17 at 23:00 Miscellaneous Information 1 ea NOTE XX ; Start 06/02/17 at 00:30 Glucose (Glutose) 15 gm Q15M PRN PO DECREASED GLUCOSE; Start 06/02/17 at 00:30 Glucose (Glutose) 22.5 gm Q15M PRN PO DECREASED GLUCOSE; Start 06/02/17 at 00: 30 Dextrose (D50w Syringe) 25 ml Q15M PRN IV DECREASED GLUCOSE; Start 06/02/17 at 00:30 Dextrose (D50w Syringe) 50 ml Q15M PRN IV DECREASED GLUCOSE; Start 06/02/17 at 00:30 Glucagon (Glucagen) 1 mg Q15M PRN IM DECREASED GLUCOSE; Start 06/02/17 at 00:30 Glucose (Glutose) 15 gm Q15M PRN BUCCAL DECREASED GLUCOSE; Start 06/02/17 at 00 :30 Insulin Aspart (Novolog Insulin Pen) NOVOLOG *MODERATE* ALGORI... Q6 SC Last administered on 06/05/17 00:23; Admin Dose 2 UNIT; Start 06/02/17 at 06:00 Collagenase (Santyl) 1 applic DAILY TOP Last administered on 06/05/17 08:51; Admin Dose 1 APPLIC; Start 06/02/17 at 09:00 Collagenase 1 applic 1 applic PRN PRN TOP PRN; Start 06/02/17 at 06:30 Cefepime HCl 50 ml @ 100 mls/hr Q12 IVPB Last administered on 06/06/17 08:39 ; Admin Dose 100 MLS/HR; Start 06/02/17 at 21:00 Norepinephrine/ Dextrose (Levophed/D5W) 500 ml @ 1.87 mls/hr TITRATE IV Last administered on 06/03/17 18:51; Admin Dose 18.75 MLS/HR; Start 06/03/17 at 16: 00 Acetaminophen (Tylenol Liquid) 650 mg Q4H PRN GTB PAIN AND OR ELEVATED TEMP Last administered on 06/03/17 13:19; Admin Dose 650 MG; Start 06/03/17 at 12:30 IV Flush 10 ml 10 ml PRN PRN IV IV PROTOCOL; Start 06/03/17 at 18:30 Fluconazole/ Sodium Chloride 50 ml @ 50 mls/hr Q24H IVPB Last administered on 06/05/17 13:03; Admin Dose 50 MLS/HR; Start 06/04/17 at 13:30 Vancomycin HCl (Vancocin) 100 ml @ 100 mls/hr Q12H IVPB ; Start 06/07/17 at 01: 00 Assessment/Plan Chief Complaint/Hosp Course Assessment 1. Hypoxemic respiratory failure possible ablation pneumonia versus healthcare associated pneumonia 2. Status post septic shock 3. Mild renal insufficiency 4. History of dementia Plan 1. Continue supplemental O2 as tolerated 2. Aspiration precautions 3. Continue broad-spectrum antibiotic coverage 4. Gentle hydration 5. DVT and GI prophylaxis 6. Address CODE STATUS with family Critical care time 40 minutes. Transfer to [facility] from pulmonary standpoint Problems: MANDI HAHN MD, [facility] Jun 06, 2017 11:31
[2017-06-06] MEDS: COLLAGENASE 30 GM TUBE TOP SCH (11:52)
[2017-06-06] MEDS: FLUCONAZOLE 100 MG/NS (PMX) 50 ML IVPB SCH (13:36)
--- NOTE | 2017-06-06 16:29 | PN ---
DATE: 06/06/2017 INFECTIOUS DISEASE PROGRESS NOTE SUBJECTIVE: No acute changes overnight. The patient is lethargic, status post extubated yesterday. He is in no distress, no fevers. VITAL SIGNS: Temperature 98.5, pulse 68, respirations 20, blood pressure 135/57, saturation 100 on 2 liters nasal cannula. WBC 7.1, H and H 9.4 and 29.9, platelets 169, neutrophils 78.2, BUN 38, creatinine 0.59, sodium 146. INDWELLINGS: PEG, Gonzalez, PICC line. ANTIMICROBIALS: 1. Vancomycin. 2. Cefepime. 3. Fluconazole. PHYSICAL EXAMINATION: GENERAL: Fragile chronically ill-appearing elderly man in no distress. HEENT: Head atraumatic, normocephalic. Sclerae anicteric. Buccal mucosa dry. NECK: Supple, trachea midline. CHEST: Rise symmetrical. Breath sounds diminished to bases. HEART: S1, S2. ABDOMEN: Soft, bowel tones present. EXTREMITIES: With trace dependent edema. ASSESSMENT: 1. Status post septic shock. 2. Status post acute respiratory failure. 3. Healthcare-associated pneumonia, possibly aspiration. 4. Fungal urinary tract infection. 5. Dysphagia. 6. Diabetes. 7. Acute encephalopathy on admission. MRI was negative for acute intracranial pathology. PLAN: The patient remains stable on appropriate antimicrobials. Continue present care, anti-aspira tion measures. Dictated By: SHEILA LIU INTERNET MARKETING COORDINATOR for [employer]AN SANTACRUZ/NTS Conf#: [id number] DID#: [id number]
--- NOTE | 2017-06-06 19:12 | PN ---
Date/Time of Note Date/Time of Note DATE: 06/06/17 TIME: 19:09 Assessment/Plan VTE Prophylaxis VTE Prophylaxis Intervention: SCD's Lines/Catheters IV Catheter Type (from [facility]): PICC Line Central line still needed: Yes Urinary Cath still in place: Yes Reason Cath still needed: urinary retention Assessment/Plan Chief Complaint/Hosp Course Patient was extubated yesterday, comfortable on supplemental oxygen via nasal cannula, opens eyes in response to verbal stimuli, does not follow any commands. Assessment/Plan -Respiratory failure requiring intubation and ventilatory support, resolved Dr. Huston is following in pulmonology consultation. -S/p septic shock, - Right lower lobe pneumonia, nursing home facility-acquired pneumonia. Continue abx per ID. Dr. Liu is following in Infectious Disease consultation. -Acute metabolic encephalopathy, resolving. -Rule out acute stroke and patient is with history of stroke with hemiparesis, CT scan negative for acute stroke,pending MRI. Continue Keppra. -Diastolic dysfunction congestive heart failure. Dr. Morales is following in cardiology consultation -Atrial fibrillation -Dysphagia with PEG -Sacral decubitus ulcer present on admission - Hx AVC filter Further recommendation based on clinical course. Plan of care discussed with Dr. Chavarria. Problems: Exam/Review of Systems Vital Signs Vitals Vital Signs Date Time Temp Pulse Resp B/P Pulse Ox O2 Delivery O2 Flow Rate FiO2 06/06/17 16:29 97.5 71 16 123/68 96 06/06/17 08:48 3.0 06/06/17 08:00 Nasal Cannula 06/05/17 13:05 30 Intake and Output 06/05/17 06/05/17 06/06/17 15:00 23:00 07:00 Intake Total 590 ml 870 ml 1030 ml Output Total 390 ml 400 ml 380 ml Balance 200 ml 470 ml 650 ml Exam Constitutional: awake Head: normocephalic Respiratory: diminished breath sounds Cardiovascular: irregular rhythm Gastrointestinal: other (G-tube), soft Results Result Diagram: 06/06/17 0400 06/06/17 0400 Results 24 hrs Laboratory Tests Test 06/06/17 00:09 06/06/17 04:00 06/06/17 05:32 06/06/17 07:00 Bedside Glucose 138 110 White Blood Count 7.1 Red Blood Count 3.04 L Hemoglobin 9.4 L Hematocrit 29.9 L Mean Corpuscular Volume 98.4 Mean Corpuscular Hemoglobin 30.9 Mean Corpuscular Hemoglobin Concent 31.4 L Red Cell Distribution Width 15.4 H Platelet Count 169 Mean Platelet Volume 12.4 H Neutrophils % 78.2 H Lymphocytes % 12.7 L Monocytes % 7.9 Eosinophils % 0.4 Basophils % 0.1 Nucleated Red Blood Cells % 0.0 Neutrophils # 5.5 Lymphocytes # 0.9 Monocytes # 0.6 Eosinophils # 0.0 Basophils # 0.0 Nucleated Red Blood Cells # 0.0 Sodium Level 146 H Potassium Level 3.7 Chloride Level 108 Carbon Dioxide Level 36 H Anion Gap 6 L Blood Urea Nitrogen 38 #H Creatinine 0.59 L Glucose Level 128 Calcium Level 8.0 L Phosphorus Level 2.7 Magnesium Level 2.5 Vancomycin Level Trough 17.6 Blood Gas Specimen Source Blood arterial Arterial Blood Date Drawn 06/06/2017 7:30:19 AM Arterial Blood pH (Temp corrected) 7.450 Arterial Blood pCO2 (Temp correct) 51.0 H Arterial Blood pO2 (Temp corrected) 131.2 H Arterial Blood HCO3 34.7 H Arterial Blood Base Excess 9.4 H Arterial Blood Oxygen Saturation 98.3 Sukumar Test ACCEPTAB Arterial Blood Gas Puncture Site Right Radial Arterial Blood Carboxyhemoglobin 0.3 Arterial Blood Methemoglobin 0.2 Blood Gas A-a O2 Differential 22.8 Oxyhemoglobin Percent 97.8 Total Hemoglobin 10.6 L Blood Gas Temperature 37.0 Blood Gas Modality NASAL CANNULA FiO2 30.0 Blood Gas Notified Whom JLD Blood Gas Notified Time 06/06/2017 7:59:49 AM Test 06/06/17 11:52 06/06/17 17:29 Bedside Glucose 146 110 Medications Medications Current Medications Ondansetron HCl (Zofran Inj) 4 mg Q6H PRN IV NAUSEA AND/OR VOMITING; Start 06/01/17 at 20:00 Acetaminophen (Tylenol Tab) 650 mg Q6H PRN PO PAIN LEVEL 1-3 OR FEVER Last administered on 06/04/17 01:41; Admin Dose 650 MG; Start 06/01/17 at 20:00 Morphine Sulfate (morphine) 2 mg Q4H PRN IV SEVERE PAIN LEVEL 7-10; Start 06/01 at 20:00 Famotidine (Pepcid Iv) 20 mg Q12 IV Last administered on 06/06/17 08:39; Admin Dose 20 MG; Start 06/01/17 at 21:00 Enoxaparin Sodium (Lovenox) 30 mg DAILY SC Last administered on 06/06/17 08:40 ; Admin Dose 30 MG; Start 06/02/17 at 09:00 Miscellaneous Information (Pending Santyl Order For Wound Care) This patient molina... PRN PRN XX WOUND CARE; Start 06/01/17 at 23:00 Miscellaneous Information 1 ea NOTE XX ; Start 06/02/17 at 00:30 Glucose (Glutose) 15 gm Q15M PRN PO DECREASED GLUCOSE; Start 06/02/17 at 00:30 Glucose (Glutose) 22.5 gm Q15M PRN PO DECREASED GLUCOSE; Start 06/02/17 at 00: 30 Dextrose (D50w Syringe) 25 ml Q15M PRN IV DECREASED GLUCOSE; Start 06/02/17 at 00:30 Dextrose (D50w Syringe) 50 ml Q15M PRN IV DECREASED GLUCOSE; Start 06/02/17 at 00:30 Glucagon (Glucagen) 1 mg Q15M PRN IM DECREASED GLUCOSE; Start 06/02/17 at 00:30 Glucose (Glutose) 15 gm Q15M PRN BUCCAL DECREASED GLUCOSE; Start 06/02/17 at 00 :30 Insulin Aspart (Novolog Insulin Pen) NOVOLOG *MODERATE* ALGORI... Q6 SC Last administered on 06/06/17 11:54; Admin Dose 2 UNIT; Start 06/02/17 at 06:00 Collagenase (Santyl) 1 applic DAILY TOP Last administered on 06/06/17 11:52; Admin Dose 1 APPLIC; Start 06/02/17 at 09:00 Collagenase 1 applic 1 applic PRN PRN TOP PRN; Start 06/02/17 at 06:30 Cefepime HCl (Maxipime 1gm/50 ml (Pmx)) 50 ml @ 100 mls/hr Q12 IVPB Last administered on 06/06/17 08:39; Admin Dose 100 MLS/HR; Start 06/02/17 at 21:00 Acetaminophen (Tylenol Liquid) 650 mg Q4H PRN GTB PAIN AND OR ELEVATED TEMP Last administered on 06/03/17 13:19; Admin Dose 650 MG; Start 06/03/17 at 12:30 IV Flush 10 ml 10 ml PRN PRN IV IV PROTOCOL; Start 06/03/17 at 18:30 Fluconazole/ Sodium Chloride 50 ml @ 50 mls/hr Q24H IVPB Last administered on 06/06/17t 13:36; Admin Dose 50 MLS/HR; Start 06/04/17 at 13:30 Vancomycin HCl (Vancocin) 100 ml @ 100 mls/hr Q12H IVPB ; Start 06/07/17 at 01: 00 NABIL LEROY Jun 06, 2017 19:12
[2017-06-07] MEDS: VANCOMYCIN 500MG/NS (PMX) 100 ML IVPB SCH ×2 (01:58→13:27)
[2017-06-07 02:00] VITALS: BP 142/71; RESP 18
[2017-06-07] MEDS: LEVALBUTEROL (HFA) 15 GM INHALER INH SCH ×4 (02:00→20:00)
[2017-06-07 05:52] LABS: BASOPHILS % 0.3 % (0.0-2.0); EOSINOPHILS # 0.1 10^3/ul (0.0-0.5); EOSINOPHILS % 0.8 % (0.0-7.0); HEMATOCRIT 30.8 % (42.0-52.0); HEMOGLOBIN 9.5 g/dl (14.0-18.0); LYMPHOCYTES % 13.5 % (15.0-51.0); MEAN CORPUSCULAR HEMOGLOBIN 30.1 pg (29.0-33.0); MEAN CORPUSCULAR HGB CONC 30.8 g/dl (32.0-37.0); MEAN CORPUSCULAR VOLUME 97.5 fl (82.0-101.0); MEAN PLATELET VOLUME 11.4 fl (7.4-10.4); MONOCYTE # 0.6 10^3/ul (0.3-0.9); MONOCYTES % 7.4 % (0.0-11.0); NEUTROPHIL # 5.8 10^3/ul (1.6-7.5); NEUTROPHILS % 76.7 % (39.0-77.0); PLATELET COUNT 209 10^3/UL (140-415); RED BLOOD COUNT 3.16 10^6/ul (4.70-6.10); RED CELL DISTRIBUTION WIDTH 15.3 % (11.5-14.5); WHITE BLOOD COUNT 7.6 10^3/ul (4.8-10.8)
[2017-06-07] MEDS: INSULIN ASPART [NOVOLOG] 3 ML PEN SC SCH ×5 (06:00→23:54)
[2017-06-07 06:20] LABS: CALCIUM 8.3 mg/dl (8.4-10.2); CREATININE 0.54 mg/dl (0.61-1.24); POTASSIUM 3.9 mmol/L (3.5-5.1)
[2017-06-07 07:42] VITALS: BP 135/66; RESP 18
[2017-06-07] MEDS: FAMOTIDINE 20 MG INJ IV SCH ×2 (09:06→21:29)
[2017-06-07] MEDS: CEFEPIME 1GM/50 ML (PMX) 50 ML IVPB SCH ×2 (09:07→21:30)
[2017-06-07] MEDS: ENOXAPARIN 30 MG/0.3 ML SYG SC SCH (09:27)
[2017-06-07 10:38] VITALS: BP 150/67; PULSE 76
[2017-06-07] MEDS: FUROSEMIDE 20 MG INJ IV SCH (10:38)
--- NOTE | 2017-06-07 13:44 | CONS ---
Date/Time of Note Date/Time of Note DATE: 06/07/17 TIME: 13:43 Assessment/Plan Assessment/Plan Chief Complaint/Hosp Course SUBJECTIVE: Tx out of ICU. The patient is lethargic, he is in no distress, no fevers. INDWELLINGS: PEG, Gonzalez, PICC line. ANTIMICROBIALS: 1. Vancomycin. 2. Cefepime. 3. Fluconazole. PHYSICAL EXAMINATION: GENERAL: Fragile chronically ill-appearing elderly man in no distress. HEENT: Head atraumatic, normocephalic. Sclerae anicteric. Buccal mucosa dry. NECK: Supple, trachea midline. CHEST: Rise symmetrical. Breath sounds diminished to bases. HEART: S1, S2. ABDOMEN: Soft, bowel tones present. EXTREMITIES: With trace dependent edema. ASSESSMENT: 1. Status post septic shock. 2. Status post acute respiratory failure. 3. Healthcare-associated pneumonia, possibly aspiration. 4. Fungal urinary tract infection. 5. Dysphagia. 6. Diabetes. 7. Acute encephalopathy on admission. MRI was negative for acute intracranial pathology. PLAN: The patient remains stable, continue abx, continue aspiration precautions [facility] staff Problems: Consultation Date/Type/Reason Admit Date/Time Jun 01, 2017 at 20:45 Initial Consult Date 06/03/17 Type of Consultation: ID Exam/Review of Systems Vital Signs Vitals Vital Signs Date Time Temp Pulse Resp B/P Pulse Ox O2 Delivery O2 Flow Rate FiO2 06/07/17 10:52 Nasal Cannula 2.0 06/07/17 10:38 76 150/67 06/07/17 07:42 97.3 18 97 06/05/17 13:05 30 Intake and Output 06/06/17 06/06/17 06/07/17 15:00 23:00 07:00 Intake Total 720 ml 1270 ml Output Total 420 ml 800 ml Balance 300 ml 470 ml Results Result Diagram: 06/07/17 0536 06/07/17 0536 Results 24 hrs Laboratory Tests Test 06/06/17 17:29 06/07/17 00:52 06/07/17 05:36 06/07/17 05:37 Bedside Glucose 110 111 128 White Blood Count 7.6 Red Blood Count 3.16 L Hemoglobin 9.5 L Hematocrit 30.8 L Mean Corpuscular Volume 97.5 Mean Corpuscular Hemoglobin 30.1 Mean Corpuscular Hemoglobin Concent 30.8 L Red Cell Distribution Width 15.3 H Platelet Count 209 # Mean Platelet Volume 11.4 H Neutrophils % 76.7 Lymphocytes % 13.5 L Monocytes % 7.4 Eosinophils % 0.8 Basophils % 0.3 Nucleated Red Blood Cells % 0.0 Neutrophils # 5.8 Lymphocytes # 1.0 Monocytes # 0.6 Eosinophils # 0.1 Basophils # 0.0 Nucleated Red Blood Cells # 0.0 Sodium Level 146 H Potassium Level 3.9 Chloride Level 108 Carbon Dioxide Level 37 H Anion Gap 5 L Blood Urea Nitrogen 33 H Creatinine 0.54 L Glucose Level 131 Calcium Level 8.3 L Test 06/07/17 12:38 Bedside Glucose 129 Medications Medications Current Medications Ondansetron HCl (Zofran Inj) 4 mg Q6H PRN IV NAUSEA AND/OR VOMITING; Start 06/01/17 at 20:00 Acetaminophen (Tylenol Tab) 650 mg Q6H PRN PO PAIN LEVEL 1-3 OR FEVER Last administered on 06/04/17 01:41; Admin Dose 650 MG; Start 06/01/17 at 20:00 Morphine Sulfate (morphine) 2 mg Q4H PRN IV SEVERE PAIN LEVEL 7-10; Start 06/01 at 20:00 Famotidine (Pepcid Iv) 20 mg Q12 IV Last administered on 06/07/17 09:06; Admin Dose 20 MG; Start 06/01/17 at 21:00 Enoxaparin Sodium (Lovenox) 30 mg DAILY SC Last administered on 06/07/17 09:27 ; Admin Dose 30 MG; Start 06/02/17 at 09:00 Miscellaneous Information (Pending [facility] Order For Wound Care) This patient molina... PRN PRN XX WOUND CARE; Start 06/01/17 at 23:00 Miscellaneous Information 1 ea NOTE XX ; Start 06/02/17 at 00:30 Glucose (Glutose) 15 gm Q15M PRN PO DECREASED GLUCOSE; Start 06/02/17 at 00:30 Glucose (Glutose) 22.5 gm Q15M PRN PO DECREASED GLUCOSE; Start 06/02/17 at 00: 30 Dextrose (D50w Syringe) 25 ml Q15M PRN IV DECREASED GLUCOSE; Start 06/02/17 at 00:30 Dextrose (D50w Syringe) 50 ml Q15M PRN IV DECREASED GLUCOSE; Start 06/02/17 at 00:30 Glucagon (Glucagen) 1 mg Q15M PRN IM DECREASED GLUCOSE; Start 06/02/17 at 00:30 Glucose (Glutose) 15 gm Q15M PRN BUCCAL DECREASED GLUCOSE; Start 06/02/17 at 00 :30 Insulin Aspart (Novolog Insulin Pen) NOVOLOG *MODERATE* ALGORI... Q6 SC Last administered on 06/06/17 11:54; Admin Dose 2 UNIT; Start 06/02/17 at 06:00 Collagenase (Santyl) 1 applic DAILY TOP Last administered on 06/06/17 11:52; Admin Dose 1 APPLIC; Start 06/02/17 at 09:00 Collagenase 1 applic 1 applic PRN PRN TOP PRN; Start 06/02/17 at 06:30 Cefepime HCl (Maxipime 1gm/50 ml (Pmx)) 50 ml @ 100 mls/hr Q12 IVPB Last administered on 06/07/17 09:07; Admin Dose 100 MLS/HR; Start 06/02/17 at 21:00 Acetaminophen (Tylenol Liquid) 650 mg Q4H PRN GTB PAIN AND OR ELEVATED TEMP Last administered on 06/03/17 13:19; Admin Dose 650 MG; Start 06/03/17 at 12:30 IV Flush 10 ml 10 ml PRN PRN IV IV PROTOCOL; Start 06/03/17 at 18:30 Fluconazole/ Sodium Chloride 50 ml @ 50 mls/hr Q24H IVPB Last administered on 06/06/17 13:36; Admin Dose 50 MLS/HR; Start 06/04/17 at 13:30 Vancomycin HCl (Vancocin) 100 ml @ 100 mls/hr Q12H IVPB Last administered on 06/07/17 13:27; Admin Dose 100 MLS/HR; Start 06/07/17 at 01:00 Furosemide (Lasix) 20 mg DAILY IV Last administered on 06/07/17 10:38; Admin Dose 20 MG; Start 06/07/17 at 10:00 SHEILA LIU NP Jun 07, 2017 13:44
[2017-06-07 14:15] VITALS: BP 128/70; RESP 18
[2017-06-07] MEDS: FLUCONAZOLE 100 MG/NS (PMX) 50 ML IVPB SCH (14:38)
[2017-06-07] MEDS: COLLAGENASE 30 GM TUBE TOP SCH (16:47)
--- NOTE | 2017-06-07 17:00 | PN ---
Date/Time of Note Date/Time of Note DATE: 06/07/17 TIME: 17:00 Assessment/Plan Lines/Catheters IV Catheter Type (from [facility]): PICC Line Urinary Cath still in place: No Assessment/Plan Assessment/Plan -Respiratory failure requiring intubation and ventilatory support, resolved Dr. Huston is following in pulmonology consultation. -S/p septic shock, - Right lower lobe pneumonia, nursing home facility-acquired pneumonia. Continue abx per ID. Dr. Liu is following in Infectious Disease consultation. -Acute metabolic encephalopathy, resolving. -Rule out acute stroke and patient is with history of stroke with hemiparesis, CT scan negative for acute stroke,pending MRI. Continue Keppra. -Diastolic dysfunction congestive heart failure. Dr. Morales is following in cardiology consultation -Atrial fibrillation -Dysphagia with PEG -Sacral decubitus ulcer present on admission - Hx AVC filter Further recommendation based on clinical course. Plan of care discussed with Dr. Chavarria. Exam/Review of Systems Vital Signs Vitals Vital Signs Date Time Temp Pulse Resp B/P Pulse Ox O2 Delivery O2 Flow Rate FiO2 06/07/17 16:57 2.0 06/07/17 14:15 97.5 79 18 128/70 96 06/07/17 10:52 Nasal Cannula 06/05/17 13:05 30 Intake and Output 06/06/17 06/06/17 06/07/17 15:00 23:00 07:00 Intake Total 720 ml 1270 ml Output Total 420 ml 800 ml Balance 300 ml 470 ml Results Result Diagram: 06/07/17 0536 06/07/17 0536 Results 24 hrs Laboratory Tests Test 06/06/17 17:29 06/07/17 00:52 06/07/17 05:36 06/07/17 05:37 Bedside Glucose 110 111 128 White Blood Count 7.6 Red Blood Count 3.16 L Hemoglobin 9.5 L Hematocrit 30.8 L Mean Corpuscular Volume 97.5 Mean Corpuscular Hemoglobin 30.1 Mean Corpuscular Hemoglobin Concent 30.8 L Red Cell Distribution Width 15.3 H Platelet Count 209 # Mean Platelet Volume 11.4 H Neutrophils % 76.7 Lymphocytes % 13.5 L Monocytes % 7.4 Eosinophils % 0.8 Basophils % 0.3 Nucleated Red Blood Cells % 0.0 Neutrophils # 5.8 Lymphocytes # 1.0 Monocytes # 0.6 Eosinophils # 0.1 Basophils # 0.0 Nucleated Red Blood Cells # 0.0 Sodium Level 146 H Potassium Level 3.9 Chloride Level 108 Carbon Dioxide Level 37 H Anion Gap 5 L Blood Urea Nitrogen 33 H Creatinine 0.54 L Glucose Level 131 Calcium Level 8.3 L Test 06/07/17 12:38 Bedside Glucose 129 Medications Medications Current Medications Ondansetron HCl (Zofran Inj) 4 mg Q6H PRN IV NAUSEA AND/OR VOMITING; Start 06/01/17 at 20:00 Acetaminophen (Tylenol Tab) 650 mg Q6H PRN PO PAIN LEVEL 1-3 OR FEVER Last administered on 06/04/17 01:41; Admin Dose 650 MG; Start 06/01/17 at 20:00 Morphine Sulfate (morphine) 2 mg Q4H PRN IV SEVERE PAIN LEVEL 7-10; Start 06/01 at 20:00 Famotidine (Pepcid Iv) 20 mg Q12 IV Last administered on 06/07/17 09:06; Admin Dose 20 MG; Start 06/01/17 at 21:00 Enoxaparin Sodium (Lovenox) 30 mg DAILY SC Last administered on 06/07/17 09:27 ; Admin Dose 30 MG; Start 06/02/17 at 09:00 Miscellaneous Information (Pending [facility] Order For Wound Care) This patient molina... PRN PRN XX WOUND CARE; Start 06/01/17 at 23:00 Miscellaneous Information 1 ea NOTE XX ; Start 06/02/17 at 00:30 Glucose (Glutose) 15 gm Q15M PRN PO DECREASED GLUCOSE; Start 06/02/17 at 00:30 Glucose (Glutose) 22.5 gm Q15M PRN PO DECREASED GLUCOSE; Start 06/02/17 at 00: 30 Dextrose (D50w Syringe) 25 ml Q15M PRN IV DECREASED GLUCOSE; Start 06/02/17 at 00:30 Dextrose (D50w Syringe) 50 ml Q15M PRN IV DECREASED GLUCOSE; Start 06/02/17 at 00:30 Glucagon (Glucagen) 1 mg Q15M PRN IM DECREASED GLUCOSE; Start 06/02/17 at 00:30 Glucose (Glutose) 15 gm Q15M PRN BUCCAL DECREASED GLUCOSE; Start 06/02/17 at 00 :30 Insulin Aspart (Novolog Insulin Pen) NOVOLOG *MODERATE* ALGORI... Q6 SC Last administered on 06/06/17 11:54; Admin Dose 2 UNIT; Start 06/02/17 at 06:00 Collagenase (Santyl) 1 applic DAILY TOP Last administered on 06/07/17 16:47; Admin Dose 1 APPLIC; Start 06/02/17 at 09:00 Collagenase 1 applic 1 applic PRN PRN TOP PRN; Start 06/02/17 at 06:30 Cefepime HCl (Maxipime 1gm/50 ml (Pmx)) 50 ml @ 100 mls/hr Q12 IVPB Last administered on 06/07/17 09:07; Admin Dose 100 MLS/HR; Start 06/02/17 at 21:00 Acetaminophen (Tylenol Liquid) 650 mg Q4H PRN GTB PAIN AND OR ELEVATED TEMP Last administered on 06/03/17 13:19; Admin Dose 650 MG; Start 06/03/17 at 12:30 IV Flush 10 ml 10 ml PRN PRN IV IV PROTOCOL; Start 06/03/17 at 18:30 Fluconazole/ Sodium Chloride 50 ml @ 50 mls/hr Q24H IVPB Last administered on 06/07/17 14:38; Admin Dose 50 MLS/HR; Start 06/04/17 at 13:30 Vancomycin HCl (Vancocin) 100 ml @ 100 mls/hr Q12H IVPB Last administered on 06/07/17 13:27; Admin Dose 100 MLS/HR; Start 06/07/17 at 01:00 Furosemide (Lasix) 20 mg DAILY IV Last administered on 06/07/17 10:38; Admin Dose 20 MG; Start 06/07/17 at 10:00 TASNEEM HUNT Jun 07, 2017 17:00
[2017-06-07 19:42] VITALS: BP 143/71; RESP 20
[2017-06-08] MEDS: VANCOMYCIN 500MG/NS (PMX) 100 ML IVPB SCH ×2 (01:34→12:24)
[2017-06-08] MEDS: LEVALBUTEROL (HFA) 15 GM INHALER INH SCH ×4 (01:35→20:00)
[2017-06-08 02:00] VITALS: BP 129/77; RESP 20
[2017-06-08 05:32] LABS: BASOPHILS % 0.2 % (0.0-2.0); EOSINOPHILS # 0.1 10^3/ul (0.0-0.5); EOSINOPHILS % 0.9 % (0.0-7.0); HEMATOCRIT 31.1 % (42.0-52.0); HEMOGLOBIN 9.7 g/dl (14.0-18.0); LYMPHOCYTES % 12.8 % (15.0-51.0); MEAN CORPUSCULAR HEMOGLOBIN 30.6 pg (29.0-33.0); MEAN CORPUSCULAR HGB CONC 31.2 g/dl (32.0-37.0); MEAN CORPUSCULAR VOLUME 98.1 fl (82.0-101.0); MEAN PLATELET VOLUME 11.3 fl (7.4-10.4); MONOCYTE # 0.6 10^3/ul (0.3-0.9); MONOCYTES % 7.9 % (0.0-11.0); NEUTROPHIL # 6.3 10^3/ul (1.6-7.5); NEUTROPHILS % 76.8 % (39.0-77.0); PLATELET COUNT 220 10^3/UL (140-415); RED BLOOD COUNT 3.17 10^6/ul (4.70-6.10); RED CELL DISTRIBUTION WIDTH 15.3 % (11.5-14.5); WHITE BLOOD COUNT 8.1 10^3/ul (4.8-10.8)
[2017-06-08] MEDS: INSULIN ASPART [NOVOLOG] 3 ML PEN SC SCH ×3 (05:44→18:00)
[2017-06-08 05:52] LABS: CALCIUM 8.2 mg/dl (8.4-10.2); CREATININE 0.51 mg/dl (0.61-1.24); POTASSIUM 3.7 mmol/L (3.5-5.1)
[2017-06-08 08:12] VITALS: BP 165/72; RESP 20
[2017-06-08] MEDS: CEFEPIME 1GM/50 ML (PMX) 50 ML IVPB SCH ×2 (08:58→21:15)
[2017-06-08] MEDS: FAMOTIDINE 20 MG INJ IV SCH ×2 (08:58→21:15)
[2017-06-08] MEDS: COLLAGENASE 30 GM TUBE TOP SCH (09:00)
[2017-06-08 09:05] VITALS: BP 140/66; PULSE 76
[2017-06-08] MEDS: FUROSEMIDE 20 MG INJ IV SCH (09:05)
[2017-06-08] MEDS: ENOXAPARIN 30 MG/0.3 ML SYG SC SCH (09:07)
[2017-06-08] MEDS: FLUCONAZOLE 100 MG/NS (PMX) 50 ML IVPB SCH (13:49)
--- NOTE | 2017-06-08 15:18 | PN ---
Date/Time of Note Date/Time of Note DATE: 06/08/17 TIME: 14:52 Assessment/Plan VTE Prophylaxis VTE Prophylaxis Intervention: other Lines/Catheters IV Catheter Type (from [facility]): PICC Line Urinary Cath still in place: Yes Assessment/Plan Assessment/Plan Respiratory failure requiring intubation and ventilatory support, resolved Dr. Huston is following in pulmonology consultation. -S/p septic shock, - Right lower lobe pneumonia, detention facility-acquired pneumonia. Continue abx per ID. Dr. Liu is following in Infectious Disease consultation. -Acute metabolic encephalopathy, resolving. -Rule out acute stroke and patient is with history of stroke with hemiparesis, CT scan negative for acute stroke,pending MRI. Continue Keppra. -Diastolic dysfunction congestive heart failure. Dr. Morales is following in cardiology consultation -Atrial fibrillation -Dysphagia with PEG -Sacral decubitus ulcer present on admission - Hx AVC filter Further recommendation based on clinical course. Plan of care discussed with Dr. Chavarria. Subjective Subjective 24 Hr Interval Summary Free Text/Dictation afebrile, tolerating GTV feedings, no, new complaints reported overnight. dw staff Constitutional: requiring IVF, requiring O2 Exam/Review of Systems Vital Signs Vitals Vital Signs Date Time Temp Pulse Resp B/P Pulse Ox O2 Delivery O2 Flow Rate FiO2 06/08/17 12:03 Nasal Cannula 2.0 06/08/17 09:05 76 140/66 06/08/17 08:12 97.7 20 95 06/05/17 13:05 30 Intake and Output 06/07/17 06/07/17 06/08/17 15:00 23:00 07:00 Intake Total 50 ml 1200 ml 1100 ml Output Total 2900 ml 750 ml Balance 50 ml -1700 ml 350 ml Exam Constitutional: non-verbal Respiratory: diminished breath sounds Gastrointestinal: non-tender, soft Musculoskeletal: muscle weakness Extremities: normal pulses Neurological: lethargic Results Result Diagram: 06/08/17 0456 06/08/17 0456 Results 24 hrs Laboratory Tests Test 06/07/17 18:01 06/07/17 23:53 06/08/17 04:56 06/08/17 05:43 Bedside Glucose 120 128 139 White Blood Count 8.1 Red Blood Count 3.17 L Hemoglobin 9.7 L Hematocrit 31.1 L Mean Corpuscular Volume 98.1 Mean Corpuscular Hemoglobin 30.6 Mean Corpuscular Hemoglobin Concent 31.2 L Red Cell Distribution Width 15.3 H Platelet Count 220 Mean Platelet Volume 11.3 H Neutrophils % 76.8 Lymphocytes % 12.8 L Monocytes % 7.9 Eosinophils % 0.9 Basophils % 0.2 Nucleated Red Blood Cells % 0.0 Neutrophils # 6.3 Lymphocytes # 1.0 Monocytes # 0.6 Eosinophils # 0.1 Basophils # 0.0 Nucleated Red Blood Cells # 0.0 Sodium Level 145 H Potassium Level 3.7 Chloride Level 107 Carbon Dioxide Level 37 H Anion Gap 5 L Blood Urea Nitrogen 30 H Creatinine 0.51 L Glucose Level 151 Calcium Level 8.2 L Test 06/08/17 12:33 Bedside Glucose 140 Medications Medications Current Medications Ondansetron HCl (Zofran Inj) 4 mg Q6H PRN IV NAUSEA AND/OR VOMITING; Start 06/01/17 at 20:00 Acetaminophen (Tylenol Tab) 650 mg Q6H PRN PO PAIN LEVEL 1-3 OR FEVER Last administered on 06/04/17 01:41; Admin Dose 650 MG; Start 06/01/17 at 20:00 Morphine Sulfate (morphine) 2 mg Q4H PRN IV SEVERE PAIN LEVEL 7-10; Start 06/01 at 20:00 Famotidine (Pepcid Iv) 20 mg Q12 IV Last administered on 06/08/17 08:58; Admin Dose 20 MG; Start 06/01/17 at 21:00 Enoxaparin Sodium (Lovenox) 30 mg DAILY SC Last administered on 06/08/17 09:07 ; Admin Dose 30 MG; Start 06/02/17 at 09:00 Miscellaneous Information (Pending Santyl Order For Wound Care) This patient molina... PRN PRN XX WOUND CARE; Start 06/01/17 at 23:00 Miscellaneous Information 1 ea NOTE XX ; Start 06/02/17 at 00:30 Glucose (Glutose) 15 gm Q15M PRN PO DECREASED GLUCOSE; Start 06/02/17 at 00:30 Glucose (Glutose) 22.5 gm Q15M PRN PO DECREASED GLUCOSE; Start 06/02/17 at 00: 30 Dextrose (D50w Syringe) 25 ml Q15M PRN IV DECREASED GLUCOSE; Start 06/02/17 at 00:30 Dextrose (D50w Syringe) 50 ml Q15M PRN IV DECREASED GLUCOSE; Start 06/02/17 at 00:30 Glucagon (Glucagen) 1 mg Q15M PRN IM DECREASED GLUCOSE; Start 06/02/17 at 00:30 Glucose (Glutose) 15 gm Q15M PRN BUCCAL DECREASED GLUCOSE; Start 06/02/17 at 00 :30 Insulin Aspart (Novolog Insulin Pen) NOVOLOG *MODERATE* ALGORI... Q6 SC Last administered on 06/06/17 11:54; Admin Dose 2 UNIT; Start 06/02/17 at 06:00 Collagenase (Santyl) 1 applic DAILY TOP Last administered on 06/08/17 09:00; Admin Dose 1 APPLIC; Start 06/02/17 at 09:00 Collagenase 1 applic 1 applic PRN PRN TOP PRN; Start 06/02/17 at 06:30 Cefepime HCl (Maxipime 1gm/50 ml (Pmx)) 50 ml @ 100 mls/hr Q12 IVPB Last administered on 06/08/17 08:58; Admin Dose 100 MLS/HR; Start 06/02/17 at 21:00 Acetaminophen (Tylenol Liquid) 650 mg Q4H PRN GTB PAIN AND OR ELEVATED TEMP Last administered on 06/03/17 13:19; Admin Dose 650 MG; Start 06/03/17 at 12:30 IV Flush 10 ml 10 ml PRN PRN IV IV PROTOCOL; Start 06/03/17 at 18:30 Fluconazole/ Sodium Chloride 50 ml @ 50 mls/hr Q24H IVPB Last administered on 06/08/17 13:49; Admin Dose 50 MLS/HR; Start 06/04/17 at 13:30 Vancomycin HCl (Vancocin) 100 ml @ 100 mls/hr Q12H IVPB Last administered on 06/08/17 12:24; Admin Dose 100 MLS/HR; Start 06/07/17 at 01:00 Furosemide (Lasix) 20 mg DAILY IV Last administered on 06/08/17 09:05; Admin Dose 20 MG; Start 06/07/17 at 10:00 Miscellaneous Information (*Rx Drug Level Order Reminder*) VANCOMYCIN TROUGH AT 0000 ONCE ONCE XX ; Start 06/09/17 at 00:00; Stop 06/09/17 at 00:01 TASNEEM HUNT Jun 08, 2017 15:18
[2017-06-08] MEDS: ALBUTEROL 0.083% (NEB) 2.5 MG/3 ML AMP HHN SCH ×2 (15:52→19:03)
[2017-06-08 19:38] VITALS: BP 143/65; RESP 20
[2017-06-09] MEDS: INSULIN ASPART [NOVOLOG] 3 ML PEN SC SCH ×5 (00:37→23:59)
[2017-06-09] MEDS: ALBUTEROL 0.083% (NEB) 2.5 MG/3 ML AMP HHN SCH ×4 (01:38→20:23)
[2017-06-09 02:00] VITALS: BP 147/68; RESP 20
[2017-06-09] MEDS: VANCOMYCIN 500MG/NS (PMX) 100 ML IVPB SCH ×2 (02:00→02:18)
[2017-06-09] MEDS: LEVALBUTEROL (HFA) 15 GM INHALER INH SCH ×2 (02:00→20:44)
[2017-06-09 05:53] LABS: BASOPHILS % 0.2 % (0.0-2.0); EOSINOPHILS # 0.1 10^3/ul (0.0-0.5); EOSINOPHILS % 0.8 % (0.0-7.0); HEMATOCRIT 30.4 % (42.0-52.0); HEMOGLOBIN 9.4 g/dl (14.0-18.0); LYMPHOCYTES # 1.1 10^3/ul (0.8-2.9); LYMPHOCYTES % 13.5 % (15.0-51.0); MEAN CORPUSCULAR HEMOGLOBIN 30.4 pg (29.0-33.0); MEAN CORPUSCULAR HGB CONC 30.9 g/dl (32.0-37.0); MEAN CORPUSCULAR VOLUME 98.4 fl (82.0-101.0); MEAN PLATELET VOLUME 11.2 fl (7.4-10.4); MONOCYTE # 0.8 10^3/ul (0.3-0.9); MONOCYTES % 9.7 % (0.0-11.0); NEUTROPHIL # 6.1 10^3/ul (1.6-7.5); NEUTROPHILS % 74.1 % (39.0-77.0); PLATELET COUNT 231 10^3/UL (140-415); RED BLOOD COUNT 3.09 10^6/ul (4.70-6.10); RED CELL DISTRIBUTION WIDTH 15.6 % (11.5-14.5); WHITE BLOOD COUNT 8.3 10^3/ul (4.8-10.8)
[2017-06-09 06:17] LABS: CALCIUM 8.4 mg/dl (8.4-10.2); CREATININE 0.5 mg/dl (0.61-1.24); POTASSIUM 3.5 mmol/L (3.5-5.1)
[2017-06-09 07:48] VITALS: BP 181/81; RESP 20
[2017-06-09 07:59] VITALS: BP 155/74; PULSE 83
[2017-06-09] MEDS: FAMOTIDINE 20 MG INJ IV SCH ×2 (08:45→20:42)
[2017-06-09] MEDS: FUROSEMIDE 20 MG INJ IV SCH (08:45)
[2017-06-09] MEDS: CEFEPIME 1GM/50 ML (PMX) 50 ML IVPB SCH ×2 (08:47→20:42)
[2017-06-09] MEDS: ENOXAPARIN 30 MG/0.3 ML SYG SC SCH (09:04)
--- NOTE | 2017-06-09 11:05 | RADRPT ---
PROCEDURE: XR Chest. CLINICAL INDICATION: Shortness of breath. TECHNIQUE: Single frontal view. COMPARISON: 06/06/2017. FINDINGS: The left arm PICC line remains in satisfactory position. There is air space disease at both lung bas es consistent with atelectasis or pneumonia, unchanged. The heart is enlarged. There is calcification in the aorta consistent with atherosclerosis. There are small bilateral pleural effusions. There is no pneumothorax. IMPRESSION: 1. No change from 06/06/2017. RPTAT: QQ .Mynor Monson MD, MD Date Time Electronically viewed and signed by .Mynor Monson MD, MD on 06/09/2017 11:05 .R/
[2017-06-09 13:09] VITALS: BP 136/82; RESP 18
[2017-06-09] MEDS: FLUCONAZOLE 100 MG/NS (PMX) 50 ML IVPB SCH (13:54)
--- NOTE | 2017-06-09 14:08 | PN ---
DATE: 06/08/2017 SUBJECTIVE: No acute changes. The patient is lying comfortably in bed. He is afebrile. He is let hargic, opens eyes and does not have a strong gag or cough reflex. He has some secretions stuck up in his throat. WBC today 8.1, platelets 220, no shift. BUN 30, creatinine 0.51. ANTIMICROBIALS: 1. The patient remains on vancomycin. 2. Fluconazole. 3. Cefepime. INDWELLINGS: The patient has Gonzalez catheter, PEG, and PICC line. PHYSICAL EXAMINATION: GENERAL: This is a chronically ill-appearing, elderly man who is in no distress. HEENT: Head atraumatic, normocephalic. Sclerae anicteric. Buccal mucosa dry. NECK: Supple, trachea midline. CHEST: Rise symmetrical. Breath sounds with scattered rhonchi. HEART: S1, S2. ABDOMEN: Soft. Bowel tones present. ASSESSMENT: 1. Pneumonia, possibly aspiration. 2. Status post septic shock and acute respiratory failure. 3. Urinary tract infection with urine culture grew Krystal albicans. 4. Dysphagia. 5. Dementia. 6. Diabetes. PLAN: The patient remains clinically stable. We will continue him on current antimicrobials. Cont inue anti-aspiration measures. Follow chest x-ray in a.m. Dictated By: SHEILA LIU POLITICAL THEORY PROFESSOR for SIMRAN SANTACRUZ/[facility]AT[facility] Conf#: [id number] DID#: [id number]
--- NOTE | 2017-06-09 15:12 | CONS ---
Date/Time of Note Date/Time of Note DATE: 06/09/17 TIME: 15:09 Assessment/Plan Assessment/Plan Chief Complaint/Hosp Course Pulmonary consultation requested for evaluation of respiratory failure. History of presenting illness; It is an 86-year-old white male who was transferred from long term facility on the first of this month due to increasing altered mental status. Upon evaluation patient was diagnosed with hyponatremia and prerenal azotemia with dehydration. Patient has been adequately fluid resuscitated. However short while ago a rapid response was called in overhead due to patient having shallow respirations and increasing hypoxemia and lethargic. Was immediately attended to at bedside. Patient appeared quite lethargic and was having very shallow respirations. Statin ABG was done which is showing acute severe hypercapnic respiratory failure with respiratory acidosis. Patient was immediately transferred to ICU where he was orally intubated by myself at bedside without difficulty. History has been obtained from medical records. Past medical history; 1. Patient with history of advanced dementia. 2. Chronic dysphagia, status post G-tube placement. 3. Chronic atrial fibrillation. 4. 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 5. History of CVA. 6. Hypertension. 7. Diabetes. 8. History of laparoscopic herniorrhaphy. 9. History of bilateral intraocular lens implant placement. Medications; reviewed. Allergies; none. Social history, family history, occupational histories not available. Review systems; unable to be obtained. General exam; elderly male, appears quite emaciated, unresponsive. Now orally intubated. Problems: Additional Assessment/Plan Chest x-ray was reviewed from today which is again showing bibasilar infiltrative changes. Assessment and recommendations; 1. Patient admitted with bilateral pneumonia currently on appropriate antibiotic regimen. 2. History of dementia. 3. chronic dysphagia, status post G-tube placement. 4. Atrial fibrillation. 5. History of DVT. 6. History of diabetes and hypertension. 7. History of CVA. Continue current treatment. Consultation Date/Type/Reason Admit Date/Time Jun 01, 2017 at 20:45 Initial Consult Date 06/03/17 Type of Consultation: Pulmonary 24 HR Interval Summary Free Text/Dictation Patient's condition is stable. Remains awake but unresponsive to any commands. Has remained hemodynamically stable. General exam; elderly male, awake, currently in no distress. Exam/Review of Systems Vital Signs Vitals Vital Signs Date Time Temp Pulse Resp B/P Pulse Ox O2 Delivery O2 Flow Rate FiO2 06/09/17 13:09 98.4 93 18 136/82 96 06/09/17 12:59 21 06/08/17 12:03 Nasal Cannula 2.0 Intake and Output 06/08/17 06/08/17 06/09/17 15:00 23:00 07:00 Intake Total 0 ml 1320 ml 1380 ml Output Total 2750 ml 800 ml 575 ml Balance -2750 ml 520 ml 805 ml Exam HEENT exam; supple neck, no JVD. No lymphadenopathy. Midline trachea. No thyromegaly. Patient is edentulous. There is a skin graft applied over the left temporal area. Chest exam; diminished breath on lung bases bilaterally. Upper lobes are clear to auscultation. S1-S2 audible, no murmurs. Irregular rhythm. Abdomen exam; soft, G-tube in place. Bowel sounds audible. No organomegaly. Extremity exam; no peripheral edema. AIR DRIER exam; patient is awake but does not follow any commands. Results Result Diagram: 06/09/17 0442 06/09/17 0442 Results 24 hrs Laboratory Tests Test 06/08/17 18:24 06/09/17 00:28 06/09/17 00:33 06/09/17 04:42 Bedside Glucose 138 148 Vancomycin Level Trough 13.9 White Blood Count 8.3 Red Blood Count 3.09 L Hemoglobin 9.4 L Hematocrit 30.4 L Mean Corpuscular Volume 98.4 Mean Corpuscular Hemoglobin 30.4 Mean Corpuscular Hemoglobin Concent 30.9 L Red Cell Distribution Width 15.6 H Platelet Count 231 Mean Platelet Volume 11.2 H Neutrophils % 74.1 Lymphocytes % 13.5 L Monocytes % 9.7 Eosinophils % 0.8 Basophils % 0.2 Nucleated Red Blood Cells % 0.0 Neutrophils # 6.1 Lymphocytes # 1.1 Monocytes # 0.8 Eosinophils # 0.1 Basophils # 0.0 Nucleated Red Blood Cells # 0.0 Sodium Level 142 Potassium Level 3.5 Chloride Level 104 Carbon Dioxide Level 37 H Anion Gap 5 L Blood Urea Nitrogen 31 H Creatinine 0.50 L Glucose Level 128 Calcium Level 8.4 Test 06/09/17 06:06 06/09/17 12:12 Bedside Glucose 178 136 Medications Medications Current Medications Ondansetron HCl (Zofran Inj) 4 mg Q6H PRN IV NAUSEA AND/OR VOMITING; Start 06/01/17 at 20:00 Acetaminophen (Tylenol Tab) 650 mg Q6H PRN PO PAIN LEVEL 1-3 OR FEVER Last administered on 06/04/17 01:41; Admin Dose 650 MG; Start 06/01/17 at 20:00 Morphine Sulfate (morphine) 2 mg Q4H PRN IV SEVERE PAIN LEVEL 7-10; Start 06/01 at 20:00 Famotidine (Pepcid Iv) 20 mg Q12 IV Last administered on 06/09/17 08:45; Admin Dose 20 MG; Start 06/01/17 at 21:00 Enoxaparin Sodium (Lovenox) 30 mg DAILY SC Last administered on 06/09/17 09:04 ; Admin Dose 30 MG; Start 06/02/17 at 09:00 Miscellaneous Information (Pending Santyl Order For Wound Care) This patient molina... PRN PRN XX WOUND CARE; Start 06/01/17 at 23:00 Miscellaneous Information 1 ea NOTE XX ; Start 06/02/17 at 00:30 Glucose (Glutose) 15 gm Q15M PRN PO DECREASED GLUCOSE; Start 06/02/17 at 00:30 Glucose (Glutose) 22.5 gm Q15M PRN PO DECREASED GLUCOSE; Start 06/02/17 at 00: 30 Dextrose (D50w Syringe) 25 ml Q15M PRN IV DECREASED GLUCOSE; Start 06/02/17 at 00:30 Dextrose (D50w Syringe) 50 ml Q15M PRN IV DECREASED GLUCOSE; Start 06/02/17 at 00:30 Glucagon (Glucagen) 1 mg Q15M PRN IM DECREASED GLUCOSE; Start 06/02/17 at 00:30 Glucose (Glutose) 15 gm Q15M PRN BUCCAL DECREASED GLUCOSE; Start 06/02/17 at 00 :30 Insulin Aspart (Novolog Insulin Pen) NOVOLOG *MODERATE* ALGORI... Q6 SC Last administered on 06/09/17 06:09; Admin Dose 2 UNIT; Start 06/02/17 at 06:00 Collagenase (Santyl) 1 applic DAILY TOP Last administered on 06/08/17 09:00; Admin Dose 1 APPLIC; Start 06/02/17 at 09:00 Collagenase 1 applic 1 applic PRN PRN TOP PRN; Start 06/02/17 at 06:30 Cefepime HCl (Maxipime 1gm/50 ml (Pmx)) 50 ml @ 100 mls/hr Q12 IVPB Last administered on 06/09/17 08:47; Admin Dose 100 MLS/HR; Start 06/02/17 at 21:00 Acetaminophen (Tylenol Liquid) 650 mg Q4H PRN GTB PAIN AND OR ELEVATED TEMP Last administered on 06/03/17 13:19; Admin Dose 650 MG; Start 06/03/17 at 12:30 IV Flush 10 ml 10 ml PRN PRN IV IV PROTOCOL Last administered on 06/09/17 00: 20; Admin Dose 10 ML; Start 06/03/17 at 18:30 Fluconazole/ Sodium Chloride (Diflucan 100 Mg/ NS (Pmx)) 50 ml @ 50 mls/hr Q24H IVPB Last administered on 06/09/17 13:54; Admin Dose 50 MLS/HR; Start at 13:30 Furosemide (Lasix) 20 mg DAILY IV Last administered on 06/09/17 08:45; Admin Dose 20 MG; Start 06/07/17 at 10:00 DONIS GARLAND Jun 09, 2017 15:11
--- NOTE | 2017-06-09 15:52 | CONS ---
Date/Time of Note Date/Time of Note DATE: 06/09/17 TIME: 15:42 Consultation Date/Type/Reason Admit Date/Time Jun 01, 2017 at 20:45 Initial Consult Date SUBJECTIVE: 86 y/o male monitored at Med/Surg. No acute events overnight. The patient is lying comfortably in bed. He is afebrile. He is lethargic, opens eyes. VS: 136/82 HR:93 R: 18 T: 98.4 SO2: 96% Labs: WBC: 8.3 H&H: 9.4/30.4 CXR: No change from 06/06/2017. ANTIMICROBIALS: 1. Vancomycin. 2. Fluconazole. 3. Cefepime. INDWELLINGS: The patient has Gonzalez catheter, PEG, and PICC line. PHYSICAL EXAMINATION: GENERAL: This is a chronically ill-appearing, elderly man who is in no distress. HEENT: Head atraumatic, normocephalic. Sclerae anicteric. Buccal mucosa dry. NECK: Supple, trachea midline. CHEST: Rise symmetrical. Breath sounds with scattered rhonchi. HEART: S1, S2. ABDOMEN: Soft. Bowel tones present. ASSESSMENT: 1. Pneumonia, possibly aspiration. 2. Status post septic shock and acute respiratory failure. 3. Urinary tract infection with urine culture grew Krystal albicans. 4. Dysphagia with GTube. 5. Dementia. 6. Diabetes. PLAN: The patient remains clinically stable. We will continue him on Cefepime and Diflucan. Hold Vanco. Continue anti-aspiration measures. Type of Consultation: ID Exam/Review of Systems Vital Signs Vitals Vital Signs Date Time Temp Pulse Resp B/P Pulse Ox O2 Delivery O2 Flow Rate FiO2 06/09/17 13:09 98.4 93 18 136/82 96 06/09/17 12:59 21 06/08/17 12:03 Nasal Cannula 2.0 Intake and Output 06/08/17 06/08/17 06/09/17 15:00 23:00 07:00 Intake Total 0 ml 1320 ml 1380 ml Output Total 2750 ml 800 ml 575 ml Balance -2750 ml 520 ml 805 ml Results Result Diagram: 06/09/17 0442 06/09/17 0442 Results 24 hrs Laboratory Tests Test 06/08/17 18:24 06/09/17 00:28 06/09/17 00:33 06/09/17 04:42 Bedside Glucose 138 148 Vancomycin Level Trough 13.9 White Blood Count 8.3 Red Blood Count 3.09 L Hemoglobin 9.4 L Hematocrit 30.4 L Mean Corpuscular Volume 98.4 Mean Corpuscular Hemoglobin 30.4 Mean Corpuscular Hemoglobin Concent 30.9 L Red Cell Distribution Width 15.6 H Platelet Count 231 Mean Platelet Volume 11.2 H Neutrophils % 74.1 Lymphocytes % 13.5 L Monocytes % 9.7 Eosinophils % 0.8 Basophils % 0.2 Nucleated Red Blood Cells % 0.0 Neutrophils # 6.1 Lymphocytes # 1.1 Monocytes # 0.8 Eosinophils # 0.1 Basophils # 0.0 Nucleated Red Blood Cells # 0.0 Sodium Level 142 Potassium Level 3.5 Chloride Level 104 Carbon Dioxide Level 37 H Anion Gap 5 L Blood Urea Nitrogen 31 H Creatinine 0.50 L Glucose Level 128 Calcium Level 8.4 Test 06/09/17 06:06 06/09/17 12:12 Bedside Glucose 178 136 Medications Medications Current Medications Ondansetron HCl (Zofran Inj) 4 mg Q6H PRN IV NAUSEA AND/OR VOMITING; Start 06/01/17 at 20:00 Acetaminophen (Tylenol Tab) 650 mg Q6H PRN PO PAIN LEVEL 1-3 OR FEVER Last administered on 06/04/17 01:41; Admin Dose 650 MG; Start 06/01/17 at 20:00 Morphine Sulfate (morphine) 2 mg Q4H PRN IV SEVERE PAIN LEVEL 7-10; Start 06/01 at 20:00 Famotidine (Pepcid Iv) 20 mg Q12 IV Last administered on 06/09/17 08:45; Admin Dose 20 MG; Start 06/01/17 at 21:00 Enoxaparin Sodium (Lovenox) 30 mg DAILY SC Last administered on 06/09/17 09:04 ; Admin Dose 30 MG; Start 06/02/17 at 09:00 Miscellaneous Information (Pending Santyl Order For Wound Care) This patient molina... PRN PRN XX WOUND CARE; Start 06/01/17 at 23:00 Miscellaneous Information 1 ea NOTE XX ; Start 06/02/17 at 00:30 Glucose (Glutose) 15 gm Q15M PRN PO DECREASED GLUCOSE; Start 06/02/17 at 00:30 Glucose (Glutose) 22.5 gm Q15M PRN PO DECREASED GLUCOSE; Start 06/02/17 at 00: 30 Dextrose (D50w Syringe) 25 ml Q15M PRN IV DECREASED GLUCOSE; Start 06/02/17 at 00:30 Dextrose (D50w Syringe) 50 ml Q15M PRN IV DECREASED GLUCOSE; Start 06/02/17 at 00:30 Glucagon (Glucagen) 1 mg Q15M PRN IM DECREASED GLUCOSE; Start 06/02/17 at 00:30 Glucose (Glutose) 15 gm Q15M PRN BUCCAL DECREASED GLUCOSE; Start 06/02/17 at 00 :30 Insulin Aspart (Novolog Insulin Pen) NOVOLOG *MODERATE* ALGORI... Q6 SC Last administered on 06/09/17 06:09; Admin Dose 2 UNIT; Start 06/02/17 at 06:00 Collagenase (Santyl) 1 applic DAILY TOP Last administered on 06/08/17 09:00; Admin Dose 1 APPLIC; Start 06/02/17 at 09:00 Collagenase 1 applic 1 applic PRN PRN TOP PRN; Start 06/02/17 at 06:30 Cefepime HCl (Maxipime 1gm/50 ml (Pmx)) 50 ml @ 100 mls/hr Q12 IVPB Last administered on 06/09/17 08:47; Admin Dose 100 MLS/HR; Start 06/02/17 at 21:00 Acetaminophen (Tylenol Liquid) 650 mg Q4H PRN GTB PAIN AND OR ELEVATED TEMP Last administered on 06/03/17 13:19; Admin Dose 650 MG; Start 06/03/17 at 12:30 IV Flush 10 ml 10 ml PRN PRN IV IV PROTOCOL Last administered on 06/09/17 00: 20; Admin Dose 10 ML; Start 06/03/17 at 18:30 Fluconazole/ Sodium Chloride (Diflucan 100 Mg/ NS (Pmx)) 50 ml @ 50 mls/hr Q24H IVPB Last administered on 06/09/17 13:54; Admin Dose 50 MLS/HR; Start at 13:30 Furosemide (Lasix) 20 mg DAILY IV Last administered on 06/09/17 08:45; Admin Dose 20 MG; Start 06/07/17 at 10:00 CAROLIN MUNIZ Jun 09, 2017 15:52
--- NOTE | 2017-06-09 16:12 | PN ---
Date/Time of Note Date/Time of Note DATE: 06/09/17 TIME: 16:10 Assessment/Plan VTE Prophylaxis VTE Prophylaxis Intervention: SCD's Lines/Catheters IV C[facility] Type (from [facility]): PICC Line Central line still needed: Yes Urinary Cath still in place: Yes Reason Cath still needed: urinary retention Assessment/Plan Chief Complaint/Hosp Course Patient tolerated G-tube feeding well, neurological status is at baseline, comfortable on room air without distress, continue aspiration precaution. Assessment/Plan -Respiratory failure requiring intubation and ventilatory support, resolved Dr. Huston is following in pulmonology consultation. -S/p septic shock, - Right lower lobe pneumonia, halfway facility-acquired pneumonia. Continue abx per ID. Dr. Liu is following in Infectious Disease consultation. -Acute metabolic encephalopathy, resolving. -Rule out acute stroke and patient is with history of stroke with hemiparesis, CT scan negative for acute stroke,pending MRI. Continue Keppra. -Diastolic dysfunction congestive heart failure. Dr. Morales is following in cardiology consultation -Atrial fibrillation -Dysphagia with PEG -Sacral decubitus ulcer present on admission - Hx AVC filter Further recommendation based on clinical course. Plan of care discussed with Dr. Chavarria. Problems: Exam/Review of Systems Vital Signs Vitals Vital Signs Date Time Temp Pulse Resp B/P Pulse Ox O2 Delivery O2 Flow Rate FiO2 06/09/17 13:09 98.4 93 18 136/82 96 06/09/17 12:59 21 06/08/17 12:03 Nasal Cannula 2.0 Intake and Output 06/08/17 06/08/17 06/09/17 15:00 23:00 07:00 Intake Total 0 ml 1320 ml 1380 ml Output Total 2750 ml 800 ml 575 ml Balance -2750 ml 520 ml 805 ml Exam Constitutional: awake Head: normocephalic Respiratory: diminished breath sounds Cardiovascular: irregular rhythm Gastrointestinal: other (G-tube), soft Results Result Diagram: 06/09/17 0442 06/09/17441 Results 24 hrs Laboratory Tests Test 06/08/17 18:24 06/09/17 00:28 06/09/17 00:33 06/09/17 04:42 Bedside Glucose 138 148 Vancomycin Level Trough 13.9 White Blood Count 8.3 Red Blood Count 3.09 L Hemoglobin 9.4 L Hematocrit 30.4 L Mean Corpuscular Volume 98.4 Mean Corpuscular Hemoglobin 30.4 Mean Corpuscular Hemoglobin Concent 30.9 L Red Cell Distribution Width 15.6 H Platelet Count 231 Mean Platelet Volume 11.2 H Neutrophils % 74.1 Lymphocytes % 13.5 L Monocytes % 9.7 Eosinophils % 0.8 Basophils % 0.2 Nucleated Red Blood Cells % 0.0 Neutrophils # 6.1 Lymphocytes # 1.1 Monocytes # 0.8 Eosinophils # 0.1 Basophils # 0.0 Nucleated Red Blood Cells # 0.0 Sodium Level 142 Potassium Level 3.5 Chloride Level 104 Carbon Dioxide Level 37 H Anion Gap 5 L Blood Urea Nitrogen 31 H Creatinine 0.50 L Glucose Level 128 Calcium Level 8.4 Test 06/09/17 06:06 06/09/17 12:12 Bedside Glucose 178 136 Medications Medications Current Medications Ondansetron HCl (Zofran Inj) 4 mg Q6H PRN IV NAUSEA AND/OR VOMITING; Start 06/01/17 at 20:00 Acetaminophen (Tylenol Tab) 650 mg Q6H PRN PO PAIN LEVEL 1-3 OR FEVER Last administered on 06/04/17 01:41; Admin Dose 650 MG; Start 06/01/17 at 20:00 Morphine Sulfate (morphine) 2 mg Q4H PRN IV SEVERE PAIN LEVEL 7-10; Start 06/01 at 20:00 Famotidine (Pepcid Iv) 20 mg Q12 IV Last administered on 06/09/17 08:45; Admin Dose 20 MG; Start 06/01/17 at 21:00 Enoxaparin Sodium (Lovenox) 30 mg DAILY SC Last administered on 06/09/17 09:04 ; Admin Dose 30 MG; Start 06/02/17 at 09:00 Miscellaneous Information (Pending Santyl Order For Wound Care) This patient molina... PRN PRN XX WOUND CARE; Start 06/01/17 at 23:00 Miscellaneous Information 1 ea NOTE XX ; Start 06/02/17 at 00:30 Glucose (Glutose) 15 gm Q15M PRN PO DECREASED GLUCOSE; Start 06/02/17 at 00:30 Glucose (Glutose) 22.5 gm Q15M PRN PO DECREASED GLUCOSE; Start 06/02/17 at 00: 30 Dextrose (D50w Syringe) 25 ml Q15M PRN IV DECREASED GLUCOSE; Start 06/02/17 at 00:30 Dextrose (D50w Syringe) 50 ml Q15M PRN IV DECREASED GLUCOSE; Start 06/02/17 at 00:30 Glucagon (Glucagen) 1 mg Q15M PRN IM DECREASED GLUCOSE; Start 06/02/17 at 00:30 Glucose (Glutose) 15 gm Q15M PRN BUCCAL DECREASED GLUCOSE; Start 06/02/17 at 00 :30 Insulin Aspart (Novolog Insulin Pen) NOVOLOG *MODERATE* ALGORI... Q6 SC Last administered on 06/09/17 06:09; Admin Dose 2 UNIT; Start 06/02/17 at 06:00 Collagenase (Santyl) 1 applic DAILY TOP Last administered on 06/08/17 09:00; Admin Dose 1 APPLIC; Start 06/02/17 at 09:00 Collagenase 1 applic 1 applic PRN PRN TOP PRN; Start 06/02/17 at 06:30 Cefepime HCl (Maxipime 1gm/50 ml (Pmx)) 50 ml @ 100 mls/hr Q12 IVPB Last administered on 06/09/17 08:47; Admin Dose 100 MLS/HR; Start 06/02/17 at 21:00 Acetaminophen (Tylenol Liquid) 650 mg Q4H PRN GTB PAIN AND OR ELEVATED TEMP Last administered on 06/03/17 13:19; Admin Dose 650 MG; Start 06/03/17 at 12:30 IV Flush 10 ml 10 ml PRN PRN IV IV PROTOCOL Last administered on 06/09/17 00: 20; Admin Dose 10 ML; Start 06/03/17 at 18:30 Fluconazole/ Sodium Chloride (Diflucan 100 Mg/ NS (Pmx)) 50 ml @ 50 mls/hr Q24H IVPB Last administered on 06/09/17 13:54; Admin Dose 50 MLS/HR; Start at 13:30 Furosemide (Lasix) 20 mg DAILY IV Last administered on 06/09/17 08:45; Admin Dose 20 MG; Start 06/07/17 at 10:00 NABIL LEROY Jun 09, 2017 16:12
[2017-06-09 19:53] VITALS: BP 141/69; RESP 18
[2017-06-09] MEDS: COLLAGENASE 30 GM TUBE TOP SCH (23:53)
[2017-06-10] MEDS: ALBUTEROL 0.083% (NEB) 2.5 MG/3 ML AMP HHN SCH ×4 (01:41→20:04)
[2017-06-10 02:00] VITALS: BP 133/70; RESP 18
[2017-06-10] MEDS: LEVALBUTEROL (HFA) 15 GM INHALER INH SCH ×4 (02:20→20:00)
[2017-06-10] MEDS: INSULIN ASPART [NOVOLOG] 3 ML PEN SC SCH ×3 (05:20→17:43)
[2017-06-10 05:40] LABS: BASOPHILS % 0.1 % (0.0-2.0); EOSINOPHILS # 0.1 10^3/ul (0.0-0.5); HEMATOCRIT 30.5 % (42.0-52.0); HEMOGLOBIN 9.5 g/dl (14.0-18.0); LYMPHOCYTES # 1.2 10^3/ul (0.8-2.9); LYMPHOCYTES % 14.3 % (15.0-51.0); MEAN CORPUSCULAR HEMOGLOBIN 30.4 pg (29.0-33.0); MEAN CORPUSCULAR HGB CONC 31.1 g/dl (32.0-37.0); MEAN CORPUSCULAR VOLUME 97.4 fl (82.0-101.0); MEAN PLATELET VOLUME 12.1 fl (7.4-10.4); MONOCYTE # 0.8 10^3/ul (0.3-0.9); MONOCYTES % 9.3 % (0.0-11.0); NEUTROPHIL # 6.1 10^3/ul (1.6-7.5); NEUTROPHILS % 73.4 % (39.0-77.0); PLATELET COUNT 133 10^3/UL (140-415); RED BLOOD COUNT 3.13 10^6/ul (4.70-6.10); RED CELL DISTRIBUTION WIDTH 15.9 % (11.5-14.5); WHITE BLOOD COUNT 8.3 10^3/ul (4.8-10.8)
[2017-06-10 06:21] LABS: CALCIUM 8.5 mg/dl (8.4-10.2); CREATININE 0.45 mg/dl (0.61-1.24); POTASSIUM 3.4 mmol/L (3.5-5.1)
[2017-06-10 07:37] VITALS: BP 125/65; RESP 20
[2017-06-10] MEDS: CEFEPIME 1GM/50 ML (PMX) 50 ML IVPB SCH ×2 (09:07→20:39)
[2017-06-10] MEDS: FUROSEMIDE 20 MG INJ IV SCH (09:08)
[2017-06-10] MEDS: COLLAGENASE 30 GM TUBE TOP SCH (09:08)
[2017-06-10] MEDS: FAMOTIDINE 20 MG INJ IV SCH ×2 (09:08→20:39)
[2017-06-10] MEDS: ENOXAPARIN 30 MG/0.3 ML SYG SC SCH (09:13)
[2017-06-10] MEDS: FLUCONAZOLE 100 MG/NS (PMX) 50 ML IVPB SCH (12:34)
--- NOTE | 2017-06-10 14:11 | CONS ---
Date/Time of Note Date/Time of Note DATE: 06/10/17 TIME: 14:10 Assessment/Plan Assessment/Plan Chief Complaint/Hosp Course SUBJECTIVE: The patient is lethargic, no fevers. INDWELLINGS: PEG, Gonzalez, PICC line. ANTIMICROBIALS: 2. Cefepime. 3. Fluconazole. PHYSICAL EXAMINATION: GENERAL: Fragile chronically ill-appearing elderly man in no distress. HEENT: Head atraumatic, normocephalic. Sclerae anicteric. Buccal mucosa dry. NECK: Supple, trachea midline. CHEST: Rise symmetrical. Breath sounds diminished to bases. HEART: S1, S2. ABDOMEN: Soft, bowel tones present. EXTREMITIES: With trace dependent edema. ASSESSMENT: 1. Status post septic shock. 2. Status post acute respiratory failure. 3. Healthcare-associated pneumonia, possibly aspiration. 4. Fungal urinary tract infection. 5. Dysphagia. 6. Diabetes. 7. Acute encephalopathy on admission. MRI was negative for acute intracranial pathology. PLAN: The patient remains stable, completing abx, continue aspiration precautions DW staff Problems: Consultation Date/Type/Reason Admit Date/Time Jun 01, 2017 at 20:45 Initial Consult Date 06/03/17 Type of Consultation: ID Exam/Review of Systems Vital Signs Vitals Vital Signs Date Time Temp Pulse Resp B/P Pulse Ox O2 Delivery O2 Flow Rate FiO2 06/10/17 13:34 75 16 95 21 06/10/17 07:37 97.5 125/65 06/08/17 12:03 Nasal Cannula 2.0 Intake and Output 06/09/17 06/09/17 06/10/17 15:00 23:00 07:00 Intake Total 150 ml 1080 ml Output Total 2500 ml 700 ml Balance -2350 ml 380 ml Results Result Diagram: 06/10/17 0523 06/10/17 0523 Results 24 hrs Laboratory Tests Test 06/09/17 18:08 06/09/17 23:57 06/10/17 05:15 06/10/17 05:23 Bedside Glucose 128 131 132 White Blood Count 8.3 Red Blood Count 3.13 L Hemoglobin 9.5 L Hematocrit 30.5 L Mean Corpuscular Volume 97.4 Mean Corpuscular Hemoglobin 30.4 Mean Corpuscular Hemoglobin Concent 31.1 L Red Cell Distribution Width 15.9 H Platelet Count 133 #L Mean Platelet Volume 12.1 H Neutrophils % 73.4 Lymphocytes % 14.3 L Monocytes % 9.3 Eosinophils % 1.0 Basophils % 0.1 Nucleated Red Blood Cells % 0.0 Neutrophils # 6.1 Lymphocytes # 1.2 Monocytes # 0.8 Eosinophils # 0.1 Basophils # 0.0 Nucleated Red Blood Cells # 0.0 Sodium Level 141 Potassium Level 3.4 L Chloride Level 102 Carbon Dioxide Level 38 H Anion Gap 4 L Blood Urea Nitrogen 28 H Creatinine 0.45 L Glucose Level 118 Calcium Level 8.5 Test 06/10/17 12:34 Bedside Glucose 171 Medications Medications Current Medications Ondansetron HCl (Zofran Inj) 4 mg Q6H PRN IV NAUSEA AND/OR VOMITING; Start 06/01/17 at 20:00 Acetaminophen (Tylenol Tab) 650 mg Q6H PRN PO PAIN LEVEL 1-3 OR FEVER Last administered on 06/04/17 01:41; Admin Dose 650 MG; Start 06/01/17 at 20:00 Morphine Sulfate (morphine) 2 mg Q4H PRN IV SEVERE PAIN LEVEL 7-10; Start 06/01 at 20:00 Famotidine (Pepcid Iv) 20 mg Q12 IV Last administered on 06/10/17 09:08; Admin Dose 20 MG; Start 06/01/17 at 21:00 Enoxaparin Sodium (Lovenox) 30 mg DAILY SC Last administered on 06/10/17 09: 13; Admin Dose 30 MG; Start 06/02/17 at 09:00 Miscellaneous [facility] This patient molina... PRN PRN XX WOUND CARE; Start 06/01/17 at 23:00 Miscellaneous Information 1 ea NOTE XX ; Start 06/02/17 at 00:30 Glucose (Glutose) 15 gm Q15M PRN PO DECREASED GLUCOSE; Start 06/02/17 at 00:30 Glucose (Glutose) 22.5 gm Q15M PRN PO DECREASED GLUCOSE; Start 06/02/17 at 00: 30 Dextrose (D50w Syringe) 25 ml Q15M PRN IV DECREASED GLUCOSE; Start 06/02/17 at 00:30 Dextrose (D50w Syringe) 50 ml Q15M PRN IV DECREASED GLUCOSE; Start 06/02/17 at 00:30 Glucagon (Glucagen) 1 mg Q15M PRN IM DECREASED GLUCOSE; Start 06/02/17 at 00:30 Glucose (Glutose) 15 gm Q15M PRN BUCCAL DECREASED GLUCOSE; Start 06/02/17 at 00 :30 Insulin Aspart (Novolog Insulin Pen) NOVOLOG *MODERATE* ALGORI... Q6 SC Last administered on 06/10/17 12:41; Admin Dose 2 UNIT; Start 06/02/17 at 06:00 Collagenase (Santyl) 1 applic DAILY TOP Last administered on 06/10/17 09:08; Admin Dose 1 APPLIC; Start 06/02/17 at 09:00 Collagenase 1 applic 1 applic PRN PRN TOP PRN; Start 06/02/17 at 06:30 Cefepime HCl (Maxipime 1gm/50 ml (Pmx)) 50 ml @ 100 mls/hr Q12 IVPB Last administered on 06/10/17 09:07; Admin Dose 100 MLS/HR; Start 06/02/17 at 21:00 Acetaminophen (Tylenol Liquid) 650 mg Q4H PRN GTB PAIN AND OR ELEVATED TEMP Last administered on 06/03/17 13:19; Admin Dose 650 MG; Start 06/03/17 at 12:30 IV Flush 10 ml 10 ml PRN PRN IV IV PROTOCOL Last administered on 06/09/17 20: 40; Admin Dose 10 ML; Start 06/03/17 at 18:30 Fluconazole/ Sodium Chloride (Diflucan 100 Mg/ NS (Pmx)) 50 ml @ 50 mls/hr Q24H IVPB Last administered on 06/10/17 12:34; Admin Dose 50 MLS/HR; Start at 13:30 Furosemide (Lasix) 20 mg DAILY IV Last administered on 06/10/17 09:08; Admin Dose 20 MG; Start 06/07/17 at 10:00 SHEILA LIU NP Jun 10, 2017 14:11
--- NOTE | 2017-06-10 14:12 | CONS ---
Date/Time of Note Date/Time of Note DATE: 06/10/17 TIME: 14:09 Assessment/Plan Assessment/Plan Chief Complaint/Hosp Course Pulmonary consultation requested for evaluation of respiratory failure. History of presenting illness; It is an 86-year-old white male who [facility] this [facility] due to increasing altered mental status. Upon evaluation patient was diagnosed with hyponatremia and prerenal azotemia with dehydration. Patient has been adequately fluid resuscitated. However short while ago a rapid response was called in overhead due to patient having shallow respirations and increasing hypoxemia and lethargic. Was immediately attended to at bedside. Patient appeared quite lethargic and was having very shallow respirations. Statin ABG was done which is showing acute severe hypercapnic respiratory failure with respiratory acidosis. Patient was immediately transferred to ICU where he was orally intubated by myself at bedside without difficulty. History has been obtained from medical records. Past medical history; 1. Patient with history of advanced dementia. 2. Chronic dysphagia, status post G-tube placement. 3. Chronic atrial fibrillation. 4. 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 5. History of CVA. 6. Hypertension. 7. Diabetes. 8. History of laparoscopic herniorrhaphy. 9. History of bilateral intraocular lens implant placement. Medications; reviewed. Allergies; none. Social history, family history, occupational histories not available. Review systems; unable to be obtained. General exam; elderly male, appears quite emaciated, unresponsive. Now orally intubated. Problems: Additional Assessment/Plan Assessment and recommendations; 1. Patient admitted with bilateral pneumonia currently on appropriate antibiotic regimen. 2. Advanced dementia 3. Chronic dysphagia. 4. History of DVT. Continue current treatment. Prognosis is poor. Consultation Date/Type/Reason Admit Date/Time Jun 01, 2017 at 20:45 Initial Consult Date 06/03/17 Type of Consultation: Pulmonary 24 HR Interval Summary Free Text/Dictation Patient's condition is stable. Remains essentially responsive. Has remained hemodynamically stable. General exam; elderly male, currently in no distress. Unresponsive. Exam/Review of Systems Vital Signs Vitals Vital Signs Date Time Temp Pulse Resp B/P Pulse Ox O2 Delivery O2 Flow Rate FiO2 06/10/17 13:34 75 16 95 21 06/10/17 07:37 97.5 125/65 06/08/17 12:03 Nasal Cannula 2.0 Intake and Output 06/09/17 06/09/17 06/10/17 15:00 23:00 07:00 Intake Total 150 ml 1080 ml Output Total 2500 ml 700 ml Balance -2350 ml 380 ml Exam HEENT exam; supple neck, no JVD. No lymphadenopathy. Midline trachea. No thyromegaly. Patient is status. Pupils are small bilaterally. Chest exam; diminished breath sounds bilaterally. S1-S2 audible, no murmurs. Regular rhythm. Abdomen exam; soft, nondistended. G-tube in place. Bowel sounds audible. No organomegaly. Extremity exam; no edema. [employer] exam; patient remains unresponsive. Results Result Diagram: 06/10/1752206/10/17522 Results 24 hrs Laboratory Tests Test 06/09/17 18:08 06/09/17 23:57 06/10/17 05:15 06/10/17 05:23 Bedside Glucose 128 131 132 White Blood Count 8.3 Red Blood Count 3.13 L Hemoglobin 9.5 L Hematocrit 30.5 L Mean Corpuscular Volume 97.4 Mean Corpuscular Hemoglobin 30.4 Mean Corpuscular Hemoglobin Concent 31.1 L Red Cell Distribution Width 15.9 H Platelet Count 133 #L Mean Platelet Volume 12.1 H Neutrophils % 73.4 Lymphocytes % 14.3 L Monocytes % 9.3 Eosinophils % 1.0 Basophils % 0.1 Nucleated Red Blood Cells % 0.0 Neutrophils # 6.1 Lymphocytes # 1.2 Monocytes # 0.8 Eosinophils # 0.1 Basophils # 0.0 Nucleated Red Blood Cells # 0.0 Sodium Level 141 Potassium Level 3.4 L Chloride Level 102 Carbon Dioxide Level 38 H Anion Gap 4 L Blood Urea Nitrogen 28 H Creatinine 0.45 L Glucose Level 118 Calcium Level 8.5 Test 06/10/17 12:34 Bedside Glucose 171 Medications Medications Current Medications Ondansetron HCl (Zofran Inj) 4 mg Q6H PRN IV NAUSEA AND/OR VOMITING; Start 06/01/17 at 20:00 Acetaminophen (Tylenol Tab) 650 mg Q6H PRN PO PAIN LEVEL 1-3 OR FEVER Last administered on 06/04/17t 01:41; Admin Dose 650 MG; Start 06/01/17 at 20:00 Morphine Sulfate (morphine) 2 mg Q4H PRN IV SEVERE PAIN LEVEL 7-10; Start 06/01 at 20:00 Famotidine (Pepcid Iv) 20 mg Q12 IV Last administered on 06/10/17 09:08; Admin Dose 20 MG; Start 06/01/17 at 21:00 Enoxaparin Sodium (Lovenox) 30 mg DAILY SC Last administered on 06/10/17 09: 13; Admin Dose 30 MG; Start 06/02/17 at 09:00 Miscellaneous Information (Pending Santyl Order For Wound Care) This patient molina... PRN PRN XX WOUND CARE; Start 06/01/17 at 23:00 Miscellaneous Information 1 ea NOTE XX ; Start 06/02/17 at 00:30 Glucose (Glutose) 15 gm Q15M PRN PO DECREASED GLUCOSE; Start 06/02/17 at 00:30 Glucose (Glutose) 22.5 gm Q15M PRN PO DECREASED GLUCOSE; Start 06/02/17 at 00: 30 Dextrose (D50w Syringe) 25 ml Q15M PRN IV DECREASED GLUCOSE; Start 06/02/17 at 00:30 Dextrose (D50w Syringe) 50 ml Q15M PRN IV DECREASED GLUCOSE; Start 06/02/17 at 00:30 Glucagon (Glucagen) 1 mg Q15M PRN IM DECREASED GLUCOSE; Start 06/02/17 at 00:30 Glucose (Glutose) 15 gm Q15M PRN BUCCAL DECREASED GLUCOSE; Start 06/02/17 at 00 :30 Insulin Aspart (Novolog Insulin Pen) NOVOLOG *MODERATE* ALGORI... Q6 SC Last administered on 06/10/17 12:41; Admin Dose 2 UNIT; Start 06/02/17 at 06:00 Collagenase (Santyl) 1 applic DAILY TOP Last administered on 06/10/17 09:08; Admin Dose 1 APPLIC; Start 06/02/17 at 09:00 Collagenase 1 applic 1 applic PRN PRN TOP PRN; Start 06/02/17 at 06:30 Cefepime HCl (Maxipime 1gm/50 ml (Pmx)) 50 ml @ 100 mls/hr Q12 IVPB Last administered on 06/10/17 09:07; Admin Dose 100 MLS/HR; Start 06/02/17 at 21:00 Acetaminophen (Tylenol Liquid) 650 mg Q4H PRN GTB PAIN AND OR ELEVATED TEMP Last administered on 06/03/17 13:19; Admin Dose 650 MG; Start 06/03/17 at 12:30 IV Flush 10 ml 10 ml PRN PRN IV IV PROTOCOL Last administered on 06/09/17 20: 40; Admin Dose 10 ML; Start 06/03/17 at 18:30 Fluconazole/ Sodium Chloride (Diflucan 100 Mg/ NS (Pmx)) 50 ml @ 50 mls/hr Q24H IVPB Last administered on 06/10/17 12:34; Admin Dose 50 MLS/HR; Start at 13:30 Furosemide (Lasix) 20 mg DAILY IV Last administered on 06/10/17 09:08; Admin Dose 20 MG; Start 06/07/17 at 10:00 DONIS GARLAND Jun 10, 2017 14:12
[2017-06-10 14:23] VITALS: BP 128/63; RESP 20
--- NOTE | 2017-06-10 15:03 | PN ---
Date/Time of Note Date/Time of Note DATE: 06/10/17 TIME: 15:01 Assessment/Plan VTE Prophylaxis VTE Prophylaxis Intervention: SCD's Lines/Catheters IV Catheter Type (from [facility]): PICC Line Central line still needed: Yes Urinary Cath still in place: Yes Reason Cath still needed: urinary retention Assessment/Plan Chief Complaint/Hosp Course Patient remains clinically stable, completing treatment with abx, anticipate d/ c to [facility] tomorrow. Assessment/Plan -Respiratory failure requiring intubation and ventilatory support, resolved Dr. Huston is following in pulmonology consultation. -S/p septic shock, - Right lower lobe pneumonia, intermediate facility-acquired pneumonia. Continue abx per ID. Dr. Liu is following in Infectious Disease consultation. -Acute metabolic encephalopathy, resolving. -Rule out acute stroke and patient is with history of stroke with hemiparesis, CT scan negative for acute stroke,pending MRI. Continue Keppra. -Diastolic dysfunction congestive heart failure. Dr. Morales is following in cardiology consultation -Atrial fibrillation -Dysphagia with PEG -Sacral decubitus ulcer present on admission - Hx AVC filter Further recommendation based on clinical course. Plan of care discussed with Dr. Chavarria. Problems: Exam/Review of Systems Vital Signs Vitals Vital Signs Date Time Temp Pulse Resp B/P Pulse Ox O2 Delivery O2 Flow Rate FiO2 06/10/17 14:23 99.0 76 20 128/63 95 06/10/17 13:34 21 06/08/17 12:03 Nasal Cannula 2.0 Intake and Output 06/09/17 06/09/17 06/10/17 15:00 23:00 07:00 Intake Total 150 ml 1080 ml Output Total 2500 ml 700 ml Balance -2350 ml 380 ml Exam Constitutional: awake Head: normocephalic Respiratory: diminished breath sounds Cardiovascular: irregular rhythm Gastrointestinal: other (G-tube), soft Results Result Diagram: 06/10/17 0523 06/10/17 0523 Results 24 hrs Laboratory Tests Test 06/09/17 18:08 06/09/17 23:57 06/10/17 05:15 06/10/17 05:23 Bedside Glucose 128 131 132 White Blood Count 8.3 Red Blood Count 3.13 L Hemoglobin 9.5 L Hematocrit 30.5 L Mean Corpuscular Volume 97.4 Mean Corpuscular Hemoglobin 30.4 Mean Corpuscular Hemoglobin Concent 31.1 L Red Cell Distribution Width 15.9 H Platelet Count 133 #L Mean Platelet Volume 12.1 H Neutrophils % 73.4 Lymphocytes % 14.3 L Monocytes % 9.3 Eosinophils % 1.0 Basophils % 0.1 Nucleated Red Blood Cells % 0.0 Neutrophils # 6.1 Lymphocytes # 1.2 Monocytes # 0.8 Eosinophils # 0.1 Basophils # 0.0 Nucleated Red Blood Cells # 0.0 Sodium Level 141 Potassium Level 3.4 L Chloride Level 102 Carbon Dioxide Level 38 H Anion Gap 4 L Blood Urea Nitrogen 28 H Creatinine 0.45 L Glucose Level 118 Calcium Level 8.5 Test 06/10/17 12:34 Bedside Glucose 171 Medications Medications Current Medications Ondansetron HCl (Zofran Inj) 4 mg Q6H PRN IV NAUSEA AND/OR VOMITING; Start 06/01/17 at 20:00 Acetaminophen (Tylenol Tab) 650 mg Q6H PRN PO PAIN LEVEL 1-3 OR FEVER Last administered on 06/04/17 01:41; Admin Dose 650 MG; Start 06/01/17 at 20:00 Morphine Sulfate (morphine) 2 mg Q4H PRN IV SEVERE PAIN LEVEL 7-10; Start 06/01 at 20:00 Famotidine (Pepcid Iv) 20 mg Q12 IV Last administered on 06/10/17 09:08; Admin Dose 20 MG; Start 06/01/17 at 21:00 Enoxaparin Sodium (Lovenox) 30 mg DAILY SC Last administered on 06/10/17 09: 13; Admin Dose 30 MG; Start 06/02/17 at 09:00 Miscellaneous Information (Pending [facility]yl Order For Wound Care) This patient molina... PRN PRN XX WOUND CARE; Start 06/01/17 at 23:00 Miscellaneous Information 1 ea NOTE XX ; Start 06/02/17 at 00:30 Glucose (Glutose) 15 gm Q15M PRN PO DECREASED GLUCOSE; Start 06/02/17 at 00:30 Glucose (Glutose) 22.5 gm Q15M PRN PO DECREASED GLUCOSE; Start 06/02/17 at 00: 30 Dextrose (D50w Syringe) 25 ml Q15M PRN IV DECREASED GLUCOSE; Start 06/02/17 at 00:30 Dextrose (D50w Syringe) 50 ml Q15M PRN IV DECREASED GLUCOSE; Start 06/02/17 at 00:30 Glucagon (Glucagen) 1 mg Q15M PRN IM DECREASED GLUCOSE; Start 06/02/17 at 00:30 Glucose (Glutose) 15 gm Q15M PRN BUCCAL DECREASED GLUCOSE; Start 06/02/17 at 00 :30 Insulin Aspart (Novolog Insulin Pen) NOVOLOG *MODERATE* ALGORI... Q6 SC Last administered on 06/10/17 12:41; Admin Dose 2 UNIT; Start 06/02/17 at 06:00 Collagenase (Santyl) 1 applic DAILY TOP Last administered on 06/10/17 09:08; Admin Dose 1 APPLIC; Start 06/02/17 at 09:00 Collagenase 1 applic 1 applic PRN PRN TOP PRN; Start 06/02/17 at 06:30 Cefepime HCl (Maxipime 1gm/50 ml (Pmx)) 50 ml @ 100 mls/hr Q12 IVPB Last administered on 06/10/17 09:07; Admin Dose 100 MLS/HR; Start 06/02/17 at 21:00 Acetaminophen (Tylenol Liquid) 650 mg Q4H PRN GTB PAIN AND OR ELEVATED TEMP Last administered on 06/03/17 13:19; Admin Dose 650 MG; Start 06/03/17 at 12:30 IV Flush 10 ml 10 ml PRN PRN IV IV PROTOCOL Last administered on 06/09/17 20: 40; Admin Dose 10 ML; Start 06/03/17 at 18:30 Fluconazole/ Sodium Chloride (Diflucan 100 Mg/ NS (Pmx)) 50 ml @ 50 mls/hr Q24H IVPB Last administered on 06/10/17 12:34; Admin Dose 50 MLS/HR; Start at 13:30 Furosemide (Lasix) 20 mg DAILY IV Last administered on 06/10/17 09:08; Admin Dose 20 MG; Start 06/07/17 at 10:00 NABIL LEROY Jun 10, 2017 15:03
--- NOTE | 2017-06-10 18:32 | PN ---
Date/Time of Note Date/Time of Note DATE: 06/10/17 TIME: 18:25 Assessment/Plan VTE Prophylaxis VTE Prophylaxis Intervention: SCD's Lines/Catheters IV Catheter Type (from Nrs): PICC Line Central line still needed: No Urinary Cath still in place: Yes Reason Cath still needed: urinary retention Assessment/Plan Chief Complaint/Hosp Course Septic shock on IV pressor Vent dependent respiratory failure Pneumonia Atrial fibrillation History of CVA -Off pressors and Heart rate remains overall stable. Would continue to hold antihypertensive medications. Antibiotics as per infectious disease. Vent management as per our pulmonary colleagues. -rate controlled Problems: Assessment/Plan Septic shock on IV pressor Vent dependent respiratory failure Pneumonia Atrial fibrillation History of CVA -Off pressors and Heart rate remains overall stable. Would continue to hold antihypertensive medications. Antibiotics as per infectious disease. -On iv lasix > change to po in the near future -Anticoagulate if deemed an apporpriate candidate Subjective 24 Hr Interval Summary Free Text/Dictation the aptient is stable overnight Exam/Review of Systems Vital Signs Vitals Vital Signs Date Time Temp Pulse Resp B/P Pulse Ox O2 Delivery O2 Flow Rate FiO2 06/10/17 14:23 99.0 76 20 128/63 95 06/10/17 13:34 21 06/08/17 12:03 Nasal Cannula 2.0 Intake and Output 06/09/17 06/09/17 06/10/17 15:00 23:00 07:00 Intake Total 150 ml 1080 ml Output Total 2500 ml 700 ml Balance -2350 ml 380 ml Results Result Diagram: 06/10/17 0523 06/10/17 0523 Results 24 hrs Laboratory Tests Test 06/09/17 23:57 06/10/17 05:15 06/10/17 05:23 06/10/17 12:34 Bedside Glucose 131 132 171 White Blood Count 8.3 Red Blood Count 3.13 L Hemoglobin 9.5 L Hematocrit 30.5 L Mean Corpuscular Volume 97.4 Mean Corpuscular Hemoglobin 30.4 Mean Corpuscular Hemoglobin Concent 31.1 L Red Cell Distribution Width 15.9 H Platelet Count 133 #L Mean Platelet Volume 12.1 H Neutrophils % 73.4 Lymphocytes % 14.3 L Monocytes % 9.3 Eosinophils % 1.0 Basophils % 0.1 Nucleated Red Blood Cells % 0.0 Neutrophils # 6.1 Lymphocytes # 1.2 Monocytes # 0.8 Eosinophils # 0.1 Basophils # 0.0 Nucleated Red Blood Cells # 0.0 Sodium Level 141 Potassium Level 3.4 L Chloride Level 102 Carbon Dioxide Level 38 H Anion Gap 4 L Blood Urea Nitrogen 28 H Creatinine 0.45 L Glucose Level 118 Calcium Level 8.5 Test 06/10/17 17:42 Bedside Glucose 130 Medications Medications Current Medications Ondansetron HCl (Zofran Inj) 4 mg Q6H PRN IV NAUSEA AND/OR VOMITING; Start 06/01/17 at 20:00 Acetaminophen (Tylenol Tab) 650 mg Q6H PRN PO PAIN LEVEL 1-3 OR FEVER Last administered on 06/04/17 01:41; Admin Dose 650 MG; Start 06/01/17 at 20:00 Morphine Sulfate (morphine) 2 mg Q4H PRN IV SEVERE PAIN LEVEL 7-10; Start 06/01 at 20:00 Famotidine (Pepcid Iv) 20 mg Q12 IV Last administered on 06/10/17 09:08; Admin Dose 20 MG; Start 06/01/17 at 21:00 Enoxaparin Sodium (Lovenox) 30 mg DAILY SC Last administered on 06/10/17 09: 13; Admin Dose 30 MG; Start 06/02/17 at 09:00 Miscellaneous Information (Pending [facility] Order For Wound Care) This patient molina... PRN PRN XX WOUND CARE; Start 06/01/17 at 23:00 Miscellaneous Information 1 ea NOTE XX ; Start 06/02/17 at 00:30 Glucose (Glutose) 15 gm Q15M PRN PO DECREASED GLUCOSE; Start 06/02/17 at 00:30 Glucose (Glutose) 22.5 gm Q15M PRN PO DECREASED GLUCOSE; Start 06/02/17 at 00: 30 Dextrose (D50w Syringe) 25 ml Q15M PRN IV DECREASED GLUCOSE; Start 06/02/17 at 00:30 Dextrose (D50w Syringe) 50 ml Q15M PRN IV DECREASED GLUCOSE; Start 06/02/17 at 00:30 Glucagon (Glucagen) 1 mg Q15M PRN IM DECREASED GLUCOSE; Start 06/02/17 at 00:30 Glucose (Glutose) 15 gm Q15M PRN BUCCAL DECREASED GLUCOSE; Start 06/02/17 at 00 :30 Insulin Aspart (Novolog Insulin Pen) NOVOLOG *MODERATE* ALGORI... Q6 SC Last administered on 06/10/17 12:41; Admin Dose 2 UNIT; Start 06/02/17 at 06:00 Collagenase (Santyl) 1 applic DAILY TOP Last administered on 06/10/17 09:08; Admin Dose 1 APPLIC; Start 06/02/17 at 09:00 Collagenase 1 applic 1 applic PRN PRN TOP PRN; Start 06/02/17 at 06:30 Cefepime HCl (Maxipime 1gm/50 ml (Pmx)) 50 ml @ 100 mls/hr Q12 IVPB Last administered on 06/10/17 09:07; Admin Dose 100 MLS/HR; Start 06/02/17 at 21:00 Acetaminophen (Tylenol Liquid) 650 mg Q4H PRN GTB PAIN AND OR ELEVATED TEMP Last administered on 06/03/17 13:19; Admin Dose 650 MG; Start 06/03/17 at 12:30 IV Flush 10 ml 10 ml PRN PRN IV IV PROTOCOL Last administered on 06/09/17 20: 40; Admin Dose 10 ML; Start 06/03/17 at 18:30 Fluconazole/ Sodium Chloride (Diflucan 100 Mg/ NS (Pmx)) 50 ml @ 50 mls/hr Q24H IVPB Last administered on 06/10/17 12:34; Admin Dose 50 MLS/HR; Start at 13:30 Furosemide (Lasix) 20 mg DAILY IV Last administered on 06/10/17 09:08; Admin Dose 20 MG; Start 06/07/17 at 10:00 DEBORAH KENNY MD Jun 10, 2017 18:32
[2017-06-10 20:00] VITALS: BP 159/77; RESP 20
[2017-06-11] MEDS: INSULIN ASPART [NOVOLOG] 3 ML PEN SC SCH ×3 (00:17→12:34)
[2017-06-11] MEDS: ALBUTEROL 0.083% (NEB) 2.5 MG/3 ML AMP HHN SCH ×3 (01:43→12:57)
[2017-06-11 02:00] VITALS: BP 136/71; RESP 20
[2017-06-11] MEDS: LEVALBUTEROL (HFA) 15 GM INHALER INH SCH ×2 (02:00→12:20)
[2017-06-11 08:07] VITALS: BP 155/67; RESP 20
[2017-06-11] MEDS: CEFEPIME 1GM/50 ML (PMX) 50 ML IVPB SCH (09:27)
[2017-06-11] MEDS: FUROSEMIDE 20 MG INJ IV SCH (09:28)
[2017-06-11] MEDS: FAMOTIDINE 20 MG INJ IV SCH (09:28)
[2017-06-11] MEDS: COLLAGENASE 30 GM TUBE TOP SCH (09:47)
[2017-06-11] MEDS: ENOXAPARIN 30 MG/0.3 ML SYG SC SCH (09:47)
--- NOTE | 2017-06-11 12:16 | CONS ---
Date/Time of Note Date/Time of Note DATE: 06/11/17 TIME: 12:14 Assessment/Plan Assessment/Plan Chief Complaint/Hosp Course Pulmonary consultation requested for evaluation of respiratory failure. History of presenting illness; It is an 86-year-old white male who was [facility] on the first of this month due to increasing altered mental status. Upon evaluation patient was diagnosed with hyponatremia and prerenal azotemia with dehydration. Patient has been adequately fluid resuscitated. However short while ago a rapid response was called in overhead due to patient having shallow respirations and increasing hypoxemia and lethargic. Was immediately attended to at bedside. Patient appeared quite lethargic and was having very shallow respirations. Statin ABG was done which is showing acute severe hypercapnic respiratory failure with respiratory acidosis. Patient was immediately transferred to ICU where he was orally intubated by myself at bedside without difficulty. History has been obtained from medical records. Past medical history; 1. Patient with history of advanced dementia. 2. Chronic dysphagia, status post G-tube placement. 3. Chronic atrial fibrillation. 4. 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 5. History of CVA. 6. Hypertension. 7. Diabetes. 8. History of laparoscopic herniorrhaphy. 9. History of bilateral intraocular lens implant placement. Medications; reviewed. Allergies; none. Social history, family history, occupational histories not available. Review systems; unable to be obtained. General exam; elderly male, appears quite emaciated, unresponsive. Now orally intubated. Problems: Additional Assessment/Plan Assessment and recommendations; 1. Patient admitted with pneumonia with significant clinical and radiological improvement. 2. Advanced dementia. Consider stopping antibiotics and discharge. Consultation Date/Type/Reason Admit Date/Time Jun 01, 2017 at 20:45 Initial Consult Date 06/03/17 Type of Consultation: Pulmonary 24 HR Interval Summary Free Text/Dictation Patient's condition is stable. Remains awake but unresponsive to any commands. Has remained hemodynamically stable. General exam; elderly male, awake, currently in no distress. Exam/Review of Systems Vital Signs Vitals Vital Signs Date Time Temp Pulse Resp B/P Pulse Ox O2 Delivery O2 Flow Rate FiO2 06/11/17 08:14 68 16 97 21 06/11/17 08:07 97.6 155/67 06/08/17 12:03 Nasal Cannula 2.0 Intake and Output 06/10/17 06/10/17 06/11/17 15:00 23:00 07:00 Intake Total 1430 ml 1280 ml Output Total 1850 ml Balance -420 ml 1280 ml Exam HEENT exam; supple neck, no JVD. No lymphadenopathy. Midline trachea. Patient is edentulous. Has bilateral intraocular lens implants. Chest exam; diminished but clear breath sound. S1-S2 audible, no murmurs. Regular rhythm. Abdomen exam; soft, G-tube in place. No organomegaly. Bowel sounds audible. Extremity exam; no edema. [employer] exam; patient is awake but does not follow any commands. Results Result Diagram: 06/10/1752206/10/17522 Results 24 hrs Laboratory Tests Test 06/10/17 12:34 06/10/17 17:42 06/11/17 00:14 06/11/17 05:43 Bedside Glucose 171 130 152 127 Medications Medications Current Medications Ondansetron HCl (Zofran Inj) 4 mg Q6H PRN IV NAUSEA AND/OR VOMITING; Start 06/01/17 at 20:00 Acetaminophen (Tylenol Tab) 650 mg Q6H PRN PO PAIN LEVEL 1-3 OR FEVER Last administered on 06/04/17 01:41; Admin Dose 650 MG; Start 06/01/17 at 20:00 Morphine Sulfate (morphine) 2 mg Q4H PRN IV SEVERE PAIN LEVEL 7-10; Start 06/01 at 20:00 Famotidine (Pepcid Iv) 20 mg Q12 IV Last administered on 06/11/17 09:28; Admin Dose 20 MG; Start 06/01/17 at 21:00 Enoxaparin Sodium (Lovenox) 30 mg DAILY SC Last administered on 06/11/17 09: 47; Admin Dose 30 MG; Start 06/02/17 at 09:00 Miscellaneous Information (Pending [facility] Order For Wound Care) This patient molina... PRN PRN XX WOUND CARE; Start 06/01/17 at 23:00 Miscellaneous Information 1 ea NOTE XX ; Start 06/02/17 at 00:30 Glucose (Glutose) 15 gm Q15M PRN PO DECREASED GLUCOSE; Start 06/02/17 at 00:30 Glucose (Glutose) 22.5 gm Q15M PRN PO DECREASED GLUCOSE; Start 06/02/17 at 00: 30 Dextrose (D50w Syringe) 25 ml Q15M PRN IV DECREASED GLUCOSE; Start 06/02/17 at 00:30 Dextrose (D50w Syringe) 50 ml Q15M PRN IV DECREASED GLUCOSE; Start 06/02/17 at 00:30 Glucagon (Glucagen) 1 mg Q15M PRN IM DECREASED GLUCOSE; Start 06/02/17 at 00:30 Glucose (Glutose) 15 gm Q15M PRN BUCCAL DECREASED GLUCOSE; Start 06/02/17 at 00 :30 Insulin Aspart (Novolog Insulin Pen) NOVOLOG *MODERATE* ALGORI... Q6 SC Last administered on 06/11/17 00:17; Admin Dose 2 UNIT; Start 06/02/17 at 06:00 Collagenase (Santyl) 1 applic DAILY TOP Last administered on 06/11/17 09:47; Admin Dose 1 APPLIC; Start 06/02/17 at 09:00 Collagenase 1 applic 1 applic PRN PRN TOP PRN; Start 06/02/17 at 06:30 Cefepime HCl (Maxipime 1gm/50 ml (Pmx)) 50 ml @ 100 mls/hr Q12 IVPB Last administered on 06/11/17 09:27; Admin Dose 100 MLS/HR; Start 06/02/17 at 21:00 Acetaminophen (Tylenol Liquid) 650 mg Q4H PRN GTB PAIN AND OR ELEVATED TEMP Last administered on 06/03/17 13:19; Admin Dose 650 MG; Start 06/03/17 at 12:30 IV Flush 10 ml 10 ml PRN PRN IV IV PROTOCOL Last administered on 06/09/17 20: 40; Admin Dose 10 ML; Start 06/03/17 at 18:30 Fluconazole/ Sodium Chloride (Diflucan 100 Mg/ NS (Pmx)) 50 ml @ 50 mls/hr Q24H IVPB Last administered on 06/10/17 12:34; Admin Dose 50 MLS/HR; Start at 13:30 Furosemide (Lasix) 20 mg DAILY IV Last administered on 06/11/17 09:28; Admin Dose 20 MG; Start 06/07/17 at 10:00 DONIS GARLAND Jun 11, 2017 12:16
[2017-06-11] MEDS: FLUCONAZOLE 100 MG/NS (PMX) 50 ML IVPB SCH (13:30)
== END 2017-06-11 14:10 | DRG 871 ==
LOC: E/R 16:20 → MS2 20:45 → MS4 06-02 16:05 → ICU 06-03 10:43 → MS2 06-06 15:55
PROVIDERS: ADMIT Internal Medicine; ATTEND Internal Medicine
PROC: 5A1945Z Respiratory Ventilation, 24-96 Consecutive Hours (ICD-10-PCS; principal; 2017-06-03)
PROC: 0BH17EZ Insertion of Endotracheal Airway into Trachea, Via Natural or Artificial Opening (ICD-10-PCS; 2017-06-03)
PROC: 02HV33Z Insertion of Infusion Device into Superior Vena Cava, Percutaneous Approach (ICD-10-PCS; 2017-06-03)
DX: A41.9 Sepsis, unspecified organism (principal); J18.9 Pneumonia, unspecified organism; J96.02 Acute respiratory failure with hypercapnia; R65.21 Severe sepsis with septic shock; G93.41 Metabolic encephalopathy; I11.0 Hypertensive heart disease with heart failure; L89.150 Pressure ulcer of sacral region, unstageable; E87.2 Acidosis; R64 Cachexia; I50.30 Unspecified diastolic (congestive) heart failure; I69.959 Hemiplegia and hemiparesis following unspecified cerebrovascular disease affecting unspecified side; E87.1 Hypo-osmolality and hyponatremia; Z68.1 Body mass index [BMI] 19.9 or less, adult; B37.49 Other urogenital candidiasis; F03.90 Unspecified dementia, unspecified severity, without behavioral disturbance, psychotic disturbance, mood disturbance, and anxiety; R13.10 Dysphagia, unspecified; E11.9 Type 2 diabetes mellitus without complications; Z86.718 Personal history of other venous thrombosis and embolism; E78.5 Hyperlipidemia, unspecified; I48.2 Chronic atrial fibrillation; Z96.1 Presence of intraocular lens; Z79.84 Long term (current) use of oral hypoglycemic drugs; Z79.4 Long term (current) use of insulin; Z87.891 Personal history of nicotine dependence; Z93.1 Gastrostomy status
CPT/HCPCS: 31500; 36415; 36569; 36600; 70450; 70553; 71010; 76937; 80048; 80053; 80202; 81001; 82803; 82962; 83036; 83605; 83735; 84100; 84443; 84484; 85025; 85610; 85730; 87040; 87070; 87081; 87086; 87400; 93005; 93306; 94002; 94003; 94640; 94664; 94770; 96365; 96366; 96367; 96375; J1940; C1769; J0692; J1450; J1650; J1815; J3370; J7030; J7040; J7060; J7070; P9612